=== PATIENT | female | born 1970 | race Two or more races ===

== ENCOUNTER 2020-05-11 10:50 | Outpatient (REF) | payer BC, SELFPAY | END 2020-05-11 10:51 | disposition home or self-care (01) | LOC: HO.LNP 10:50 | PROVIDERS: Visit Provider Internal Medicine | DX: Z20.828 Contact with and (suspected) exposure to other viral communicable diseases (principal) | CPT/HCPCS: 87635 ==

== ENCOUNTER 2020-08-19 08:34 | Outpatient (REF) | payer BC, SELFPAY ==
--- NOTE | 2020-08-19 08:40 | MM_ITS ---
EXAMINATION: MM SCREENING DIGITAL BREAST TOMOSYNTHESIS, BILATERAL CLINICAL INFORMATION: Screening. Asymptomatic. The lifetime risk of breast cancer based on the Tyrer-Cuzick Model is 10%. COMPARISON: Mammography: 06/03/2019, 10/26/2016, 09/02/2014, 07/25/2013 TECHNIQUE: Digital breast tomosynthesis is performed in both the craniocaudal and mediolateral oblique views along with computer-aided detection (CAD). Synthesized 2D images are generated from the tomosynthesis. FINDINGS: The breasts are heterogeneously dense, which may obscure small masses (ACR BI-RADS breast composition Category c). Breast tissue composition borders on average fibroglandular. Breast tissue composition is less dense than 2014. There is no significant mass or developing density or abnormal calcifications. Left breast has a chronic macrolobulated nodule better appreciated on tomography measuring approximately 1.3 x 0.9 cm. Finding is similar to prior mammography exams and decreased in size since MLO view since 2013. Right breast has chronic parenchymal asymmetry right breast upper outer quadrant with no architectural abnormality or developing density on tomography. MM/MM tomosynthesis screening BI IMPRESSION: No significant changes from prior exams. ASSESSMENT: BI-RADS 2: Benign RECOMMENDATION: Routine annual mammography screening. This patient's information was entered into a reminder system with a target due date for their next mammogram.
== END 2020-08-19 08:35 | disposition home or self-care (01) ==
LOC: HO.MAMMO 08:34
PROVIDERS: PCP Internal Medicine; Visit Provider Internal Medicine
DX: Z12.31 Encounter for screening mammogram for malignant neoplasm of breast (principal)
CPT/HCPCS: 77063; 77067

== ENCOUNTER 2020-08-26 09:33 | Outpatient (REF) | payer BC, SELFPAY ==
[2020-08-27 09:12] LABS: Follicle Stimulating Hormone 59.5 mIU/mL
[2020-08-29 02:08] LABS: HPV mRNA E6/E7 rflx Not Detected (Not Detected)
== END 2020-08-26 09:34 | disposition home or self-care (01) ==
LOC: HO.LAB 09:33
PROVIDERS: PCP Internal Medicine; Visit Provider Advanced Practice Midwife
DX: Z01.419 Encounter for gynecological examination (general) (routine) without abnormal findings (principal); Z11.51 Encounter for screening for human papillomavirus (HPV)
CPT/HCPCS: 36415; 83001; 87624; 88142

== ENCOUNTER 2020-09-21 16:24 | Outpatient (REF) | payer BC, SELFPAY ==
--- NOTE | ~2020-09-21 | XR_ITS ---
EXAMINATION: XR CERVICAL SPINE XR CHEST CLINICAL INFORMATION: Neck pain. COMPARISON: None TECHNIQUE: Cervical spine 5 views. Chest 2 views. FINDINGS: CERVICAL SPINE: There is mild straightening of cervical lordosis. The vertebral heights and alignment is normal. There is loss of C6-C7 disc level with moderate ventral spondylosis. Bilateral mild narrowing of neural foramina C5-C6 disc level from uncovertebral hypertrophic changes as noted. No lytic or sclerotic process seen. The prevertebral soft tissues are normal. CHEST: The lungs are well-expanded and clear of acute process. The heart size and pulmonary vascularity is normal. No gross bony abnormality seen. XR/XR cervical spine 5V IMPRESSION: 1. Mild straightening of cervical lordosis with degenerative disc changes and ventral spondylosis at C6-C7 disc level. 2. Unremarkable chest exam.
--- NOTE | ~2020-09-21 | XR_ITS ---
EXAMINATION: XR CERVICAL SPINE XR CHEST CLINICAL INFORMATION: Neck pain. COMPARISON: None TECHNIQUE: Cervical spine 5 views. Chest 2 views. FINDINGS: CERVICAL SPINE: There is mild straightening of cervical lordosis. The vertebral heights and alignment is normal. There is loss of C6-C7 disc level with moderate ventral spondylosis. Bilateral mild narrowing of neural foramina C5-C6 disc level from uncovertebral hypertrophic changes as noted. No lytic or sclerotic process seen. The prevertebral soft tissues are normal. CHEST: The lungs are well-expanded and clear of acute process. The heart size and pulmonary vascularity is normal. No gross bony abnormality seen. XR/XR chest 2V IMPRESSION: 1. Mild straightening of cervical lordosis with degenerative disc changes and ventral spondylosis at C6-C7 disc level. 2. Unremarkable chest exam.
[2020-09-21 17:05] LABS: MANUAL DIFF FLAG NO
[2020-09-21 17:15] LABS: Basophils Percent Auto 0.3 % (0-2); Eosinophils Absolute Auto 0.2 X10*3/uL (0.0-0.4); Eosinophils Percent Auto 2.8 % (0-4); Hematocrit 38.4 % (37-47); Hemoglobin 12.6 g/dl (12.0-16.0); Imm Gran Abs Auto 0.02 X10*3/uL (0.00-0.03); Imm Gran Pct Auto 0.3 % (0.0-0.4); Lymphocytes Absolute Auto 2.6 X10*3/uL (1.2-4.9); Lymphocytes Percent Auto 33.4 % (20-40); Mean Corpuscular HGB Conc 32.8 g/dl (31.0-35.0); Mean Corpuscular Hemoglobin 29.2 pg (27.0-33.0); Mean Corpuscular Volume 88.9 fL (80-98); Mean Platelet Volume 10.4 fL (9.4-12.3); Monocytes Absolute Auto 0.6 X10*3/uL (0.1-1.2); Monocytes Percent Auto 8.4 % (2-11); Neutrophils Absolute Auto 4.2 X10*3/uL (2.0-8.3); Neutrophils Percent Auto 54.8 % (45-73); Platelet Count 292 X10*3/uL (160-400); Red Blood Count 4.32 X10*6/uL (4.20-5.50); Red Cell Distribution Width 12.7 % (11.0-16.0); White Blood Count 7.6 X10*3/uL (4.8-10.8)
[2020-09-21 17:59] LABS: Alanine Aminotransferase 62 U/L (0-31); Albumin Level 4.7 g/dL (3.5-5.0); Alkaline Phosphatase 79 U/L (39-117); Anion Gap 13 (12-20); Aspartate Amino Transferase 35 U/L (5-31); Bilirubin Total 0.4 mg/dL (0.0-1.0); Blood Urea Nitrogen 20 mg/dL (9-16); C Reactive Protein 0.11 mg/dL (< or = 0.50); Calcium 9.9 mg/dL (8.4-10.2); Carbon Dioxide 28 mmol/L (22-29); Chloride 101 mmol/L (96-108); Cholesterol 218 mg/dL; Estimated Glomerular Filt Rate > 60; Glucose Random 115 mg/dL (60-115); Potassium 4.1 mmol/L (3.3-5.1); Sodium 138 mmol/L (135-145); Total Protein 7.4 g/dL (6.5-8.0)
[2020-09-22 13:02] LABS: Follicle Stimulating Hormone 54.1 mIU/mL
== END 2020-09-21 16:25 | disposition home or self-care (01) ==
LOC: HO.LAB 16:24
PROVIDERS: Absent Provider Advanced Practice Midwife; PCP Internal Medicine; Visit Provider Internal Medicine
DX: N91.2 Amenorrhea, unspecified (principal); M54.2 Cervicalgia; M54.6 Pain in thoracic spine; R79.89 Other specified abnormal findings of blood chemistry
CPT/HCPCS: 36415; 71046; 72050; 80053; 82465; 83001; 85025; 86140

== ENCOUNTER 2020-12-18 09:51 | Outpatient (REF) | payer BC, SELFPAY ==
[2020-12-18 11:22] LABS: Alanine Aminotransferase 41 U/L (0-31); Albumin Level 4.8 g/dL (3.5-5.0); Alkaline Phosphatase 84 U/L (39-117); Anion Gap 13 (12-20); Aspartate Amino Transferase 30 U/L (5-31); Bilirubin Total 0.6 mg/dL (0.0-1.0); Blood Urea Nitrogen 11 mg/dL (9-16); Carbon Dioxide 27 mmol/L (22-29); Chloride 103 mmol/L (96-108); Cholesterol 220 mg/dL; Estimated Glomerular Filt Rate > 60; Glucose Fasting 114 mg/dL (60-99); HDL Cholesterol 68 mg/dL; LDL Cholesterol Calculated 132 mg/dl; Potassium 4.3 mmol/L (3.3-5.1); Sodium 139 mmol/L (135-145); Total Protein 7.5 g/dL (6.5-8.0); Triglycerides 101 mg/dL
== END 2020-12-18 09:52 | disposition home or self-care (01) ==
LOC: HO.LAB 09:51
PROVIDERS: PCP Internal Medicine; Visit Provider Internal Medicine
DX: E78.00 Pure hypercholesterolemia, unspecified (principal); R79.89 Other specified abnormal findings of blood chemistry
CPT/HCPCS: 36415; 80053; 80061

== ENCOUNTER 2021-03-18 08:00 | Outpatient (RCR) | payer BC, SELFPAY ==
--- NOTE | 2021-02-16 08:34 | MHC.PT.EP ---
[facility] [place] Office [place] Office [place] Office [address] Nancy Bagley [address] [phone] F: [phone] F: [phone] F: [phone] F: [phone] Physical Therapy Plan of Care Date of Evaluation: Date of Surgery: Diagnosis: right SI pain Assessment: The patient arrives reporting right SIJ pain. She has reduced trunk mobility and painful movements of the right hip and leg. She has the most limitations with transitional movement and bed mobility. Assessment of her pelvis shows a slight right on right sacral torsion. After a Ann mechanical assessment she showed a flexion directional preference. I instructed her on body mechanics, sitting posture, and sleeping posture, but she will need more practice with this. She is an excellent candidate for skilled PT services. Frequency and Duration: The patient will be seen 2x/week x 4 weeks Short Term Goals: 1. Pt to show improved sitting and sleeping posture to avoid aggravating factors. 2. Pt to have improved neutral spine awareness to avoid further aggravation of pain. 3. Pt to be able to return demonstrate her HEP to improve compliance and carryover. Penitentiary Goals: 1. Pt to return to all functional tasks without provocation of pain. 2. Pt to be able to demonstrate excellent squat, lifting, bending mechanics. Treatment Plan: Modalities to reduce pain, spasms and effusion. Manual therapy to restore motion and function. Therapeutic exercise to improve strength and flexibility. Neuromuscular re-education for posture and balance. Therapeutic activities to return to functional activities of daily living. Electronically signed by: Joanna Morel PT DPT Please sign and return to therapist. Thank you for your referral.
== END 2021-03-18 09:15 | disposition home or self-care (01) ==
LOC: HO.PT 08:00
PROVIDERS: PCP Internal Medicine; Visit Provider Internal Medicine
DX: M53.3 Sacrococcygeal disorders, not elsewhere classified (principal)
CPT/HCPCS: 97110; 97112; 97140; 97162; 97530

== ENCOUNTER 2021-07-14 13:30 | Outpatient (REF) | payer BC, SELFPAY ==
[2021-07-14 14:25] LABS: Influenza A PCR NEGATIVE (Negative); Influenza B PCR NEGATIVE (Negative); Resp Syncy Virus RNA Qual PCR NEGATIVE (Negative); SARS COV2 PCR INHOUSE NEGATIVE (Negative)
== END 2021-07-14 13:31 | disposition home or self-care (01) ==
LOC: HO.LNP 13:30
PROVIDERS: Visit Provider Internal Medicine
DX: Z20.822 Contact with and (suspected) exposure to COVID-19 (principal)
CPT/HCPCS: 0241U

== ENCOUNTER 2021-07-18 07:16 | Outpatient (REF) | payer BC, SELFPAY ==
[2021-07-18 07:32] LABS: MANUAL DIFF FLAG NO
[2021-07-18 07:47] LABS: Basophils Percent Auto 0.4 % (0-2); Eosinophils Absolute Auto 0.3 X10*3/uL (0.0-0.4); Eosinophils Percent Auto 3.2 % (0-4); Hematocrit 40.7 % (37.0-47.0); Hemoglobin 13.2 g/dl (12.0-16.0); Imm Gran Abs Auto 0.03 X10*3/uL (0.00-0.03); Imm Gran Pct Auto 0.4 % (0.0-0.4); Lymphocytes Percent Auto 24.1 % (20-40); Mean Corpuscular HGB Conc 32.4 g/dl (31.0-35.0); Mean Corpuscular Hemoglobin 29.5 pg (27.0-33.0); Mean Corpuscular Volume 90.8 fL (80.0-98.0); Mean Platelet Volume 9.9 fL (9.4-12.3); Monocytes Absolute Auto 0.6 X10*3/uL (0.1-1.2); Monocytes Percent Auto 7.8 % (2-11); Neutrophils Absolute Auto 5.3 x10*3/uL (2.0-8.3); Neutrophils Percent Auto 64.1 % (45-73); Platelet Count 306 X10*3/uL (160-400); Red Blood Count 4.48 X10*6/uL (4.20-5.50); Red Cell Distribution Width 12.8 % (11.0-16.0); White Blood Count 8.2 X10*3/uL (4.8-10.8)
[2021-07-18 08:15] LABS: Alanine Aminotransferase 89 U/L (0-31); Albumin Level 4.5 g/dL (3.5-5.0); Alkaline Phosphatase 87 U/L (39-117); Anion Gap 9 (12-20); Aspartate Amino Transferase 58 U/L (5-31); Bilirubin Total 0.2 mg/dL (0.0-1.0); Blood Urea Nitrogen 13 mg/dL (9-16); Calcium 9.8 mg/dL (8.4-10.2); Carbon Dioxide 27 mmol/L (22-29); Chloride 107 mmol/L (96-108); Cholesterol 205 mg/dL; Estimated Glomerular Filt Rate > 60; Glucose Random 121 mg/dL (60-115); HDL Cholesterol 65 mg/dL; LDL Cholesterol Calculated 105 mg/dl; Potassium 4.2 mmol/L (3.3-5.1); Sodium 139 mmol/L (135-145); Total Protein 7.6 g/dL (6.5-8.0); Triglycerides 177 mg/dL
[2021-07-18 08:19] LABS: Appearance Urine CLEAR; Color Urine YELLOW; Glucose Urine UA NEG (NEG); Leukocyte Esterase Urine NEG (NEG); Nitrite Urine NEG (NEG); Specific Gravity - Urine 1.025 (1.005-1.025); Urine Blood TRACE (NEG); Urine Ketones NEG (NEG); Urine Protein NEG (NEG-TRACE)
[2021-07-18 08:27] LABS: Squamous Epithelial Cell Urine TRACE /LPF
[2021-07-18 08:29] LABS: RBC Urine 0-2 /HPF (0); WBC Urine 0-2 /HPF (0-4)
[2021-07-18 08:33] LABS: Vitamin D 25-OH Total 41.3 ng/mL (>30)
== END 2021-07-18 07:17 | disposition home or self-care (01) ==
LOC: HO.LAB 07:16
PROVIDERS: PCP Internal Medicine; Visit Provider Internal Medicine
DX: Z00.00 Encounter for general adult medical examination without abnormal findings (principal)
CPT/HCPCS: 36415; 80053; 80061; 81001; 82306; 85025

== ENCOUNTER 2021-07-25 11:16 | Outpatient (REF) | payer BC, SELFPAY ==
--- NOTE | ~2021-07-25 | XR_ITS ---
EXAMINATION: XR CHEST CLINICAL INFORMATION: Cough. Question infiltrate. COMPARISON: Previous chest x-ray September 2020 TECHNIQUE: 2 views of the chest were obtained. FINDINGS: No significant abnormality is noted involving the heart, lungs, mediastinum, bony thorax or soft tissues. XR/XR chest 2V IMPRESSION: Unremarkable examination.
== END 2021-07-25 11:17 | disposition home or self-care (01) ==
LOC: HO.XRAY 11:16
PROVIDERS: PCP Internal Medicine; Visit Provider Internal Medicine
DX: R05.9 Cough, unspecified (principal)
CPT/HCPCS: 71046

== ENCOUNTER → 2021-08-29 10:17 | Outpatient (BNVA) | payer BC, SELFPAY | PROVIDERS: PCP Internal Medicine; Visit Provider Advanced Practice Midwife ==

== ENCOUNTER 2021-10-05 07:56 | Outpatient (REF) | payer BC, SELFPAY ==
--- NOTE | ~2021-10-05 | MM_ITS ---
EXAMINATION: MM SCREENING DIGITAL BREAST TOMOSYNTHESIS, BILATERAL CLINICAL INFORMATION: Screening. Asymptomatic. The lifetime risk of breast cancer based on the Tyrer-Cuzick Model is 9%. COMPARISON: Mammography: 08/19/2020, 06/03/2019, 10/26/2016, 09/02/2014, 07/25/2013 TECHNIQUE: Digital breast tomosynthesis is performed in both the craniocaudal and mediolateral oblique views along with computer-aided detection (CAD). Synthesized 2D images are generated from the tomosynthesis. FINDINGS: The breasts are heterogeneously dense, which may obscure small masses (ACR BI-RADS breast composition Category c). There is some inhomogeneous involution of the breast tissue density over time. Some patchy asymmetry posterior upper outer right breast is present, likely incompletely compressed inhomogeneous fibroglandular tissue. Patient will be recalled for additional imaging. The remainder of the bilateral breasts show no significant changes from prior studies. Minor oval parenchymal asymmetry central left breast is stable from prior studies. No abnormal calcifications. The axilla and skin contours are unremarkable. MM/MM tomosynthesis screening BI IMPRESSION: 1. Right: Parenchymal asymmetry posterior upper outer quadrant, likely incompletely compressed glandular tissue. 2. Left: No mammographic evidence of malignancy. ASSESSMENT: BI-RADS 0: Incomplete - Need Additional Imaging Evaluation RECOMMENDATION: 1. Additional views of the right breast (rolled CC x2, standard ML). 2. Targeted ultrasound if warranted after review of the additional views. 3. Radiology department staff will contact the patient for additional imaging. This patient's information was entered into a reminder system with a target due date for their next mammogram.
== END 2021-10-05 07:57 | disposition home or self-care (01) ==
LOC: HO.MAMMO 07:56
PROVIDERS: PCP Internal Medicine; Visit Provider Advanced Practice Midwife
DX: Z12.31 Encounter for screening mammogram for malignant neoplasm of breast (principal)
CPT/HCPCS: 77063; 77067

== ENCOUNTER 2021-10-11 08:49 | Outpatient (REF) | payer BC, SELFPAY ==
--- NOTE | ~2021-10-11 | MM_ITS ---
EXAMINATION: MM DIAGNOSTIC DIGITAL BREAST TOMOSYNTHESIS, RIGHT TARGETED RIGHT BREAST ULTRASOUND CLINICAL INFORMATION: Asymmetric density upper outer aspect of the right breast. COMPARISON: Mammography: 10/05/2021 and studies dating back to 07/25/2013. TECHNIQUE: Digital breast tomosynthesis is performed. 2D images are generated from the tomosynthesis. The following views are obtained: Medial lateral rolled craniocaudal views of the right breast. Full field mediolateral oblique projection. Targeted right breast ultrasound. FINDINGS: The breasts are heterogeneously dense, which may obscure small masses (ACR BI-RADS breast composition Category c). There is persistence of an asymmetric density about the upper outer aspect of the right breast approximately 11 cm from the nipple. Looking back on prior studies, this appears to have been present to some degree back to 2019. Recommend 6 month follow-up right breast mammogram to ensure stability. Targeted ultrasound evaluation to the upper outer aspect of the right breast did not demonstrate any abnormal cystic or solid masses. No region of abnormal distal sound shadowing appreciated. Results are discussed with the patient at time of visit. MM/MM tomosynthesis added views R IMPRESSION: Probably stable density deep upper outer aspect of the right breast for which 6 month follow-up study is recommended. ASSESSMENT: BI-RADS 3: Probably Benign. RECOMMENDATION: Diagnostic mammography in 6 months. This patient's information was entered into a reminder system with a target due date for their next mammogram.
--- NOTE | ~2021-10-11 | US_ITS ---
EXAMINATION: US DIAGNOSTIC ULTRASOUND BREAST, RIGHT CLINICAL INFORMATION: Asymmetric density deep upper outer aspect of the right breast.. COMPARISON: Mammography of same day as well as studies dating back to July 25, 2013. TECHNIQUE: Ultrasound of the breast is performed with real-time duran scale imaging and color Doppler. FINDINGS: There is no focal suspicious finding. There is no solid mass, architectural abnormality, duct ectasia, or edema in the soft tissue planes. Results are discussed with the patient at time of visit. US/US breast RT limited IMPRESSION: No ultrasound abnormality of the right breast identified. Mammography demonstrates what is likely stable density upper outer aspect of the right breast for which a 6 month follow-up right breast mammogram is suggested. ASSESSMENT: BI-RADS 3: Probably Benign RECOMMENDATION: Diagnostic mammography in 6 months. Right breast mammography. This patient's information was entered into a reminder system with a target due date for their next mammogram.
== END 2021-10-11 08:50 | disposition home or self-care (01) ==
LOC: HO.MAMMO 08:49
PROVIDERS: Visit Provider Advanced Practice Midwife
DX: N64.89 Other specified disorders of breast (principal)
CPT/HCPCS: 76642; 77061; 77065

== ENCOUNTER 2021-10-28 16:22 | Outpatient (REF) | payer BC, SELFPAY ==
--- NOTE | ~2021-10-28 | XR_ITS ---
EXAMINATION: XR LUMBOSACRAL SPINE CLINICAL INFORMATION: Back pain COMPARISON: Previous lumbar spine MRI 2012 and x-ray July 2019 TECHNIQUE: Three views of the lumbosacral spine. FINDINGS: Bone alignment is normal. No fracture or dislocation is seen. Disc spaces are normal. There is lower lumbar spine facet arthritis. There is a probable L1 vertebral body hemangioma that appears unchanged. XR/XR lumbar spine 2-3V IMPRESSION: Lower lumbar spine facet arthritis.
[2021-10-28 17:20] LABS: Estimated Average Glucose 123 mg/dL; Hemoglobin A1c % 5.9 %
[2021-10-28 17:23] LABS: Alanine Aminotransferase 70 U/L (0-31); Albumin Level 4.4 g/dL (3.5-5.0); Alkaline Phosphatase 80 U/L (39-117); Anion Gap 11 (12-20); Aspartate Amino Transferase 39 U/L (5-31); Bilirubin Total 0.4 mg/dL (0.0-1.0); Blood Urea Nitrogen 13 mg/dL (9-16); C Reactive Protein 0.27 mg/dL (< or = 0.50); Calcium 9.7 mg/dL (8.4-10.2); Carbon Dioxide 27 mmol/L (22-29); Chloride 106 mmol/L (96-108); Estimated Glomerular Filt Rate > 60; Glucose Random 98 mg/dL (60-115); Potassium 4.3 mmol/L (3.3-5.1); Sodium 140 mmol/L (135-145)
[2021-10-28 17:45] LABS: Thyroid Stimulating Hormone 0.87 uIU/mL (0.32-4.0)
[2021-10-28 17:48] LABS: Vitamin B12 1153 pg/mL (200-900)
== END 2021-10-28 16:23 | disposition home or self-care (01) ==
LOC: HO.XRAY 16:22
PROVIDERS: PCP Internal Medicine; Visit Provider Internal Medicine
DX: R79.89 Other specified abnormal findings of blood chemistry (principal); M54.50 Low back pain, unspecified; R20.0 Anesthesia of skin
CPT/HCPCS: 36415; 72100; 80053; 82550; 82607; 83036; 84439; 84443; 86140

== ENCOUNTER 2021-12-09 13:23 | Outpatient (RCR) | payer BC, SELFPAY | END 2021-12-30 09:08 | disposition home or self-care (01) | LOC: HO.PT 13:23 | PROVIDERS: PCP Internal Medicine; Visit Provider Internal Medicine | DX: M46.96 Unspecified inflammatory spondylopathy, lumbar region (principal) | CPT/HCPCS: 97110; 97161 ==

== ENCOUNTER 2022-02-01 15:41 | Outpatient (REF) | payer BC, SELFPAY ==
[2022-02-01 16:38] LABS: Alanine Aminotransferase 66 U/L (0-31); Albumin Level 4.8 g/dL (3.5-5.0); Alkaline Phosphatase 81 U/L (39-117); Anion Gap 14 (12-20); Aspartate Amino Transferase 40 U/L (5-31); Bilirubin Total 0.3 mg/dL (0.0-1.0); Blood Urea Nitrogen 13 mg/dL (9-16); C Reactive Protein 0.21 mg/dL (< or = 0.50); Calcium 10.3 mg/dL (8.4-10.2); Carbon Dioxide 26 mmol/L (22-29); Chloride 104 mmol/L (96-108); Estimated Glomerular Filt Rate > 60; Glucose Random 88 mg/dL (60-115); Potassium 4.3 mmol/L (3.3-5.1); Sodium 140 mmol/L (135-145); Total Protein 7.6 g/dL (6.5-8.0)
== END 2022-02-01 15:42 | disposition home or self-care (01) ==
LOC: HO.LAB 15:41
PROVIDERS: PCP Internal Medicine; Visit Provider Internal Medicine
DX: M54.9 Dorsalgia, unspecified (principal); R20.2 Paresthesia of skin; R94.5 Abnormal results of liver function studies
CPT/HCPCS: 36415; 80053; 82550; 86140

== ENCOUNTER 2022-02-05 08:49 | Emergency (ER) | payer BC, SELFPAY ==
[2022-02-05 09:12] VITALS: BP 137/89; PULSE 76; RESP 18; TEMP 36.6; O2SAT 100; BMI 25.8
--- NOTE | 2022-02-05 11:26 | ED_ITS ---
HPI - Back Pain/Injury General Chief Complaint: Back Pain/Injury Stated Complaint: Lower back pain Time Seen by Provider: 02/05/22 11:01 Source: patient Mode of arrival: ambulatory History of Present Illness HPI Narrative: 51-year-old female with past medical history of asthma, spinal stenosis s/p back surgery, presenting to the ED complaining of acute on chronic left-sided low back pain radiating down left lower extremity. Admits has been seeing PCP/going to physical therapy for symptoms trying to get outpatient MRI, having difficulty due to insurance issues. Reports pain worsened this morning with painful/difficulty ambulating from pain. Also reports paresthesias. Denies fever, chills, numbness, weakness, urinary incontinence/retention, fever. Did not take any medications today. Denies known injury/trauma or fall. Takes Motrin and Flexeril at home without relief MD elicited complaint: back pain Pertinent past history: prior back pain and back surgery Onset (ago): day(s) Related Data Home Medications Medication Instructions Recorded Confirmed albuterol sulfate 90 mcg/actuation 2 puff inhalation Q4H PRN 08/26/20 aerosol inhaler fluoxetine 20 mg capsule 20 mg PO DAILY 08/26/20 Previous Rx's Medication Instructions Recorded lidocaine 5 % topical patch 1 patch topical DAILY PRN pain #30 02/05/22 (Lidoderm) ea tramadol 50 mg tablet 50 mg PO Q8H PRN pain, severe #9 02/05/22 tabs Allergies Allergy/AdvReac Type Severity Reaction Status Date / Time SEDATIVE MED Allergy Intermediate BURNING Uncoded 04/08/20 15:54 SENSATION Review of Systems Review of Systems: Constitutional: No Fever, No Chills ENT/Mouth: No Ear Pain, No Nasal Congestion, No Sinus Pain, No Hoarseness, No sore throat, No Rhinorrhea, No Swallowing Difficulty Cardiovascular: No Chest Pain, No SOB Respiratory: No Cough, No Sputum, No Wheezing Gastrointestinal: No Nausea, No Vomiting, No Diarrhea, No Constipation, No Abdominal pain Genitourinary: No Dysuria, No Urinary Frequency, No Hematuria, No Urinary Incontinence/retention, No Urgency, No Flank Pain Musculoskeletal: + joint pain, No Myalgias, No Joint Swelling Skin: No Skin Lesions, No rash Neuro: No Weakness, No Numbness, + Paresthesias Yes all other systems are reviewed and are negative Constitutional: Constitutional: Reports as per HPI PMFSH Past Medical History Attestation statement: The following information was validated with the patient. Medical History Asthma Surgical History H/O elbow surgery H/O Spinal surgery Family History Family History (Updated 08/29/21 @ 10:54 by Abigail Langford) Father Dementia Social History Social History Alcohol intake: current Alcohol intake frequency: holidays/special occasions only Patient Tobacco Use Status: Former Tobacco user Advance Directives: No Advance Directives Information Provided: No Sexual orientation: Straight/Heterosexual Gender identity: Female Physical Exam Vital Signs: Vital Signs: Last Vital Signs Temp 98 F 02/05/22 09:12 Pulse 76 02/05/22 09:12 Resp 18 02/05/22 09:12 BP 137/89 02/05/22 09:12 Pulse Ox 100 02/05/22 09:12 O2 Del Method 02/05/22 09:12 BMI result Body Mass Index 25.8 Const: General: cooperative, healthy appearing and no acute distress Orientation/consciousness: patient oriented x3 Limitations: no limitations HEENT: Head: Yes normal to inspection and Yes atraumatic Ears: hearing grossly normal bilaterally General nose exam: Normal external nose present Face and sinus: Yes normal facial exam Eyes: General: appearance normal, both eyes and all related structures EOM: EOMs intact bilaterally Neck: Neck: Yes normal visual inspection and Yes no meningeal signs Resp: Effort & Inspection: normal respiratory effort and no respiratory distress Cardio: Rate: regular rate Heart sounds: S1 normal heart sound present and S2 normal heart sound present Peripheral pulses: dorsalis pedis present GI: Inspection: Yes normal to inspection Palpation (GI): Soft to palpation and nontender Back/Spine/Pelvis: Other: No midline thoracic/lumbar spinous tenderness/step-off or deformity. + left- sided lumbar paraspinal/buttock tenderness to palpation Skin: Rashes: no rashes Wounds: no wounds Neuro: Other: Strength intact throughout. No saddle anesthesia. Sensation intact to light touch. Neurovascular intact distally. Ambulating with steady gait General: patient oriented x3, gait normal, tone normal and no meningeal signs Gait exam (Neuro): Normal gait present Extrem: General: Yes normal to inspection MDM - Back Pain/Injury MDM Narrative Medical decision making narrative: 51-year-old female with past medical history of asthma, spinal stenosis s/p back surgery, presenting to the ED complaining of acute on chronic left-sided low back pain radiating down left lower extremity. On exam vital signs stable, NAD, nontoxic appearing, physical exam as above, no midline spinous tenderness throughout, no red flag symptoms. Concern for MSK pain/strain/muscle spasm vs herniated disc. Low concern for fracture/dislocation or cauda equina Plan: Pain management, PCP follow-up Differential Diagnosis Differential diagnosis: Likely lumbar radiculopathy, sciatica and strain of lumbar region Medical Records Attestation: I reviewed the patient's medical records. Lab Data Attestation: I reviewed the patient's lab results. Discharge Plan Discharge Clinical Impression: Lumbar radiculopathy Patient Disposition: Home, Self-Care Instructions: Acute Low Back Pain (ED) Additional Instructions: Continue take for previously prescribed Flexeril and ibuprofen. Consider cutting the Flexeril in half to make it less sedating. You can also take 800 mg of ibuprofen every 8 hours. In addition lidocaine patches are numbing patches, apply to most painful area. And tramadol as an opiate pain medication, take only when pain is severe for the next 3 days You may also take Tylenol If symptoms persist or worsen, pain becomes unbearable, you developed urinary retention or incontinence, or weakness return to the ED Please follow-up with your doctor Prescriptions: New tramadol 50 mg tablet 50 mg PO Q8H PRN (Reason: pain, severe) Qty: 9 0RF lidocaine [Lidoderm] 5 % adhesive patch,medicated 1 patch topical DAILY MDD remove after 12 hours PRN (Reason: pain) Qty: 30 0RF Rx Instructions: leave on most painful area for up to 12 hrs No Action fluoxetine 20 mg capsule 20 mg PO DAILY albuterol sulfate 90 mcg/actuation HFA aerosol inhaler 2 puff inhalation Q4H PRN Referrals: Rui Lemos MD [Primary Care Provider] -
[2022-02-05] MEDS: Ketorolac Tromethamine 30 MG/ML VIAL IM (11:58)
[2022-02-05] MEDS: traMADoL HCL 50 MG TABLET PO (11:59)
[2022-02-05] MEDS: Lidocaine 4 % Patch ADH..PATCH 1 PATCH TRANSDERMA (11:59)
== END 2022-02-05 12:10 | disposition home or self-care (01) ==
PROVIDERS: Emergency Provider Emergency Medicine; PCP Internal Medicine
DX: M54.16 Radiculopathy, lumbar region (principal); Z79.899 Other long term (current) drug therapy; Z87.891 Personal history of nicotine dependence
CPT/HCPCS: 96372; 99283; 99284; J1885

== ENCOUNTER 2022-04-12 08:40 | Outpatient (REF) | payer BC, SELFPAY ==
--- NOTE | ~2022-04-12 | MM_ITS ---
EXAMINATION: MM DIAGNOSTIC DIGITAL BREAST TOMOSYNTHESIS, RIGHT CLINICAL INFORMATION: Short interval follow-up right breast. Parenchymal asymmetry posterior upper outer right breast noted previously. TC score 9%. COMPARISON: Mammography: 10/11/2021, 10/05/2021 (BI-RADS 0), 08/19/2020, 06/03/2019, 10/26/2016 TECHNIQUE: Digital breast tomosynthesis is performed in both the craniocaudal and mediolateral oblique views along with computer-aided detection (CAD). Synthesized 2D images are generated from the tomosynthesis. FINDINGS: There are scattered areas of fibroglandular density (ACR BI-RADS breast composition Category b). Breast tissue composition borders on heterogeneously dense. Parenchymal pattern is similar to prior studies and there is no developing density or interval mass or architectural abnormality. No abnormal calcifications. The axilla and skin contours are unremarkable. Results are provided to the patient at time of visit by the technologist. MM/MM tomosynthesis diagnostic RT IMPRESSION: No significant changes from prior studies. ASSESSMENT: BI-RADS 2: Benign RECOMMENDATION: Routine annual mammography screening. This patient's information was entered into a reminder system with a target due date for their next mammogram.
== END 2022-04-12 08:41 | disposition home or self-care (01) ==
LOC: HO.MAMMO 08:40
PROVIDERS: PCP Internal Medicine; Visit Provider Advanced Practice Midwife
DX: N63.11 Unspecified lump in the right breast, upper outer quadrant (principal)
CPT/HCPCS: 77061; 77065

== ENCOUNTER 2022-05-04 14:30 | Outpatient (REF) | payer BC, SELFPAY ==
[2022-05-04 14:40] LABS: MANUAL DIFF FLAG NO
[2022-05-04 15:40] LABS: Basophils Percent Auto 0.3 % (0-2); Eosinophils Absolute Auto 0.3 X10*3/uL (0.0-0.4); Eosinophils Percent Auto 3.8 % (0-4); Hematocrit 38.1 % (37.0-47.0); Hemoglobin 12.6 g/dl (12.0-16.0); Imm Gran Abs Auto 0.01 X10*3/uL (0.00-0.03); Imm Gran Pct Auto 0.2 % (0.0-0.4); Lymphocytes Absolute Auto 1.9 X10*3/uL (1.2-4.9); Lymphocytes Percent Auto 28.4 % (20-40); Mean Corpuscular HGB Conc 33.1 g/dl (31.0-35.0); Mean Corpuscular Hemoglobin 29.7 pg (27.0-33.0); Mean Corpuscular Volume 89.9 fL (80.0-98.0); Mean Platelet Volume 10.7 fL (9.4-12.3); Monocytes Absolute Auto 0.5 X10*3/uL (0.1-1.2); Monocytes Percent Auto 8.2 % (2-11); Neutrophils Absolute Auto 3.9 x10*3/uL (2.0-8.3); Neutrophils Percent Auto 59.1 % (45-73); Platelet Count 289 X10*3/uL (160-400); Red Blood Count 4.24 X10*6/uL (4.20-5.50); Red Cell Distribution Width 12.9 % (11.0-16.0); White Blood Count 6.6 X10*3/uL (4.8-10.8)
[2022-05-04 16:08] LABS: Alanine Aminotransferase 62 U/L (0-31); Albumin Level 4.6 g/dL (3.5-5.0); Alkaline Phosphatase 80 U/L (39-117); Amylase 56 U/L (28-100); Anion Gap 16 (12-20); Aspartate Amino Transferase 38 U/L (5-31); Bilirubin Total 0.3 mg/dL (0.0-1.0); Blood Urea Nitrogen 14 mg/dL (9-16); C Reactive Protein 0.17 mg/dL (< or = 0.50); Calcium 9.8 mg/dL (8.4-10.2); Carbon Dioxide 25 mmol/L (22-29); Chloride 104 mmol/L (96-108); Estimated Glomerular Filt Rate > 60; Glucose Random 95 mg/dL (60-115); Lactate Dehydrogenase 173 U/L (122-220); Potassium 4.3 mmol/L (3.3-5.1); Sodium 141 mmol/L (135-145); Total Protein 7.2 g/dL (6.5-8.0)
== END 2022-05-04 14:31 | disposition home or self-care (01) ==
LOC: HO.LAB 14:30
PROVIDERS: PCP Internal Medicine; Visit Provider Internal Medicine
DX: R59.9 Enlarged lymph nodes, unspecified (principal)
CPT/HCPCS: 36415; 80053; 82150; 83615; 85025; 86140

== ENCOUNTER 2022-06-12 07:27 | Outpatient (REF) | payer BC, SELFPAY ==
--- NOTE | ~2022-06-12 | CT_ITS ---
EXAMINATION: CT MAXILLOFACIAL WITHOUT CONTRAST CLINICAL INFORMATION: Left jaw swelling COMPARISON: None TECHNIQUE: Multidetector helical imaging was performed in the axial plane with generation of coronal and sagittal reformatted images. This CT examination was performed using dose optimization techniques as appropriate, variously including the following: *Automated exposure control *Adjustment of mA and/or kV according to patient size (this includes techniques or standardized protocols for targeted exams where dose is matched to indication/reason for exam; i.e. extremities or head) *Use of iterative reconstruction technique DLP: 123 FINDINGS: PARANASAL SINUSES: Mild ethmoid and maxillary sinus mucosal thickening. NASAL PASSAGE: The nasal passages are clear. Rightward deviation and osseous spurring of the nasal septum. ORBITS: Normal appearance of the osseous orbits. The lamina papyracea are intact. No significant preseptal or retrobulbar edema. Normal appearance of the globes. Normal symmetric appearance of the extraocular musculature. No abnormalities of the intraconal or extraconal adipose tissue. Normal appearance of the optic nerve sheaths. Normal appearance of the lacrimal glands. No orbital fluid collections. No abnormalities of the orbital apices. TEMPOROMANDIBULAR JOINTS: The temporomandibular joints remain well aligned. Normal appearance of the temporomandibular joints. ADDITIONAL RELEVANT FINDINGS: No evidence of maxillofacial bone fractures. The zygomatic arches remain intact. No nasal bone fracture. No evidence of mandibular or maxillary fracture. No significant maxillary/mandibular periapical disease. Degenerative changes of the right temporomandibular joint. The visualized mastoid air cells and middle ear cavities remain well aerated. Limited evaluation of the intracranial structures without significant abnormalities. The premaxillary, retromaxillary, pterygopalatine fossa, temporal fossa, and parapharyngeal adipose tissue is maintained. No demonstrated soft tissue abnormalities within the intrinsic tissues of the tongue. Metallic skin marker is noted along the left submandibular region with adjacent enlarged left level 1B cervical lymph node which measures up to 2.5 cm in maximal axial dimensions (series 5 image 41). There are additional mildly enlarged right level 1B and bilateral level [address]/CT facial bones wo IV con IMPRESSION: Palpable abnormality in the left submandibular region corresponds to an enlarged left level 1B lymph node. There are additional mildly enlarged lymph nodes involving the right level 1B and bilateral level 2 alexandra stations. Recommend further evaluation with contrast-enhanced CT of the neck.
== END 2022-06-12 07:28 | disposition home or self-care (01) ==
LOC: HO.CT 07:27
PROVIDERS: Visit Provider Internal Medicine
DX: M27.2 Inflammatory conditions of jaws (principal)
CPT/HCPCS: 70486

== ENCOUNTER 2022-06-27 16:34 | Outpatient (REF) | payer BC, SELFPAY ==
[2022-06-27 16:48] LABS: MANUAL DIFF FLAG NO
[2022-06-27 17:24] LABS: Basophils Percent Auto 0.4 % (0-2); Eosinophils Absolute Auto 0.2 X10*3/uL (0.0-0.4); Eosinophils Percent Auto 2.1 % (0-4); Hematocrit 39.5 % (37.0-47.0); Hemoglobin 13.2 g/dl (12.0-16.0); Imm Gran Abs Auto 0.02 X10*3/uL (0.00-0.03); Imm Gran Pct Auto 0.3 % (0.0-0.4); Lymphocytes Absolute Auto 1.9 X10*3/uL (1.2-4.9); Lymphocytes Percent Auto 24.6 % (20-40); Mean Corpuscular HGB Conc 33.4 g/dl (31.0-35.0); Mean Corpuscular Hemoglobin 30.3 pg (27.0-33.0); Mean Corpuscular Volume 90.6 fL (80.0-98.0); Mean Platelet Volume 10.7 fL (9.4-12.3); Monocytes Absolute Auto 0.8 X10*3/uL (0.1-1.2); Monocytes Percent Auto 9.9 % (2-11); Neutrophils Absolute Auto 4.8 x10*3/uL (2.0-8.3); Neutrophils Percent Auto 62.7 % (45-73); Platelet Count 259 X10*3/uL (160-400); Red Blood Count 4.36 X10*6/uL (4.20-5.50); Red Cell Distribution Width 12.7 % (11.0-16.0); White Blood Count 7.7 X10*3/uL (4.8-10.8)
[2022-06-27 17:47] LABS: Gamma Glutamyl Transpeptidase 48 U/L (7-33); Lactate Dehydrogenase 210 U/L (122-220)
[2022-06-27 18:11] LABS: Erythrocyte Sedimentation Rate 16 MM/HR (0-20)
[2022-06-28 08:00] LABS: Monotest Negative (Negative)
[2022-06-28 14:33] LABS: Beta-2 Microglobulin, Serum 1.33 mg/L (< OR = 2.51)
== END 2022-06-27 16:35 | disposition home or self-care (01) ==
LOC: HO.LAB 16:34
PROVIDERS: PCP Internal Medicine; Visit Provider Internal Medicine Medical Oncology
DX: R22.1 Localized swelling, mass and lump, neck (principal)
CPT/HCPCS: 36415; 82232; 82977; 83615; 85025; 85652; 86308

== ENCOUNTER 2022-08-11 08:11 | Outpatient (REF) | payer BC, SELFPAY ==
--- NOTE | ~2022-08-11 | US_ITS ---
PROCEDURE: ULTRASOUND-GUIDED LEFT SUBMANDIBULAR LYMPH NODE BIOPSY CLINICAL INFORMATION: Adenopathy left neck. COMPARISON: CT facial bones 06/12/2022. TECHNIQUE: Following explaining ultrasound-guided left neck lymph node biopsy procedure, benefits and risk, a written consent was obtained. Patient was placed supine with head turned to the right on ultrasound stretcher and preliminary ultrasound imaging was obtained through the left submandibular space/neck. The lymph node was identified and a marker was placed along the skin. The marked site was cleaned and draped in the usual sterile manner. 1% lidocaine was inserted at puncture site. Three fine-needle biopsy aspirations are performed with 22-gauge biopsy needle. A 20-gauge short biopsy gun was advanced through the skin incision and a 3-pass core biopsy was obtained. Adequate tissue was collected and submitted in formalin, flow cytometry and immediate slight evaluation. After confirming lymph node tissue by the pathologist, the needle was withdrawn and complete hemostasis achieved at puncture site. Sterile dressing was applied postprocedure. Patient tolerated procedure extremely well. FINDINGS: Preliminary ultrasound identified two large lymph nodes in submandibular space. The largest lymph node has echogenic parenchyma in the center and measures 1.8 x 2.1 x 2.3 cm. It has intrinsic vasculature. The smaller lymph node was not measured. Ultrasound-guided fine-needle and core biopsy was performed of the larger left submandibular lymph node. Initial results from pathology revealed lymphoid tissue. US/US biopsy lymph node IMPRESSION: Successful ultrasound-guided left submandibular lymph node fine-needle and core biopsy performed. There were no immediate complications.
--- NOTE | ~2022-08-11 | US_ITS ---
PROCEDURE: ULTRASOUND-GUIDED LEFT SUBMANDIBULAR LYMPH NODE BIOPSY CLINICAL INFORMATION: Adenopathy left neck. COMPARISON: CT facial bones 06/12/2022. TECHNIQUE: Following explaining ultrasound-guided left neck lymph node biopsy procedure, benefits and risk, a written consent was obtained. Patient was placed supine with head turned to the right on ultrasound stretcher and preliminary ultrasound imaging was obtained through the left submandibular space/neck. The lymph node was identified and a marker was placed along the skin. The marked site was cleaned and draped in the usual sterile manner. 1% lidocaine was inserted at puncture site. Three fine-needle biopsy aspirations are performed with 22-gauge biopsy needle. A 20-gauge short biopsy gun was advanced through the skin incision and a 3-pass core biopsy was obtained. Adequate tissue was collected and submitted in formalin, flow cytometry and immediate slight evaluation. After confirming lymph node tissue by the pathologist, the needle was withdrawn and complete hemostasis achieved at puncture site. Sterile dressing was applied postprocedure. Patient tolerated procedure extremely well. FINDINGS: Preliminary ultrasound identified two large lymph nodes in submandibular space. The largest lymph node has echogenic parenchyma in the center and measures 1.8 x 2.1 x 2.3 cm. It has intrinsic vasculature. The smaller lymph node was not measured. Ultrasound-guided fine-needle and core biopsy was performed of the larger left submandibular lymph node. Initial results from pathology revealed lymphoid tissue. US/US guided fine needle asp IMPRESSION: Successful ultrasound-guided left submandibular lymph node fine-needle and core biopsy performed. There were no immediate complications.
[2022-08-11] MEDS: Lidocaine HCl 1 % MPF 5 ML VIAL 10 ML SUBCUT (09:43)
== END 2022-08-11 08:12 | disposition home or self-care (01) ==
LOC: HO.US 08:11
PROVIDERS: Radiology Diagnostic Radiology; Visit Provider Internal Medicine Medical Oncology
DX: R59.9 Enlarged lymph nodes, unspecified (principal)
CPT/HCPCS: 10005; 36415; 38505; 76942; 88172; 88173; 88177; 88184; 88185; 88300; 88305; 88333

== ENCOUNTER 2022-09-25 14:29 | Outpatient (REF) | payer BC, SELFPAY ==
[2022-09-25 15:41] LABS: Influenza A PCR NEGATIVE (Negative); Influenza B PCR NEGATIVE (Negative); Resp Syncy Virus RNA Qual PCR NEGATIVE (Negative); SARS COV2 PCR INHOUSE NEGATIVE (Negative)
== END 2022-09-25 14:30 | disposition home or self-care (01) ==
LOC: HO.LNP 14:29
PROVIDERS: Visit Provider Internal Medicine
DX: Z20.822 Contact with and (suspected) exposure to COVID-19 (principal); R05.9 Cough, unspecified; R51.9 Headache, unspecified
CPT/HCPCS: 0241U

== ENCOUNTER 2022-10-25 07:30 | Outpatient (REF) | payer BC, SELFPAY ==
--- NOTE | ~2022-10-25 | MM_ITS ---
EXAMINATION: MM SCREENING DIGITAL BREAST TOMOSYNTHESIS, BILATERAL CLINICAL INFORMATION: Screening. Asymptomatic. The lifetime risk of breast cancer based on the Tyrer-Cuzick Model is 11%. COMPARISON: Mammography: 04/12/2022, 10/11/2021, 10/05/2021, 08/19/2020, 06/03/2019, right breast ultrasound 10/11/2021 TECHNIQUE: Digital breast tomosynthesis is performed in both the craniocaudal and mediolateral oblique views along with computer-aided detection (CAD). Synthesized 2D images are generated from the tomosynthesis. FINDINGS: The breasts are heterogeneously dense, which may obscure small masses (ACR BI-RADS breast composition Category c). Parenchymal pattern is similar to prior exams. No significant mass or abnormal calcifications. There is stable nodular asymmetry mid central left breast. There are stable asymmetries posterior outer and central inner right breast. No developing density or architectural abnormality. The axilla and skin contours are unremarkable. MM/MM tomosynthesis screening BI IMPRESSION: No significant changes from prior exams. ASSESSMENT: BI-RADS 2: Benign RECOMMENDATION: Routine annual mammography screening. This patient's information was entered into a reminder system with a target due date for their next mammogram.
== END 2022-10-25 07:31 | disposition home or self-care (01) ==
LOC: HO.MAMMO 07:30
PROVIDERS: PCP Internal Medicine; Visit Provider Internal Medicine
DX: Z12.31 Encounter for screening mammogram for malignant neoplasm of breast (principal)
CPT/HCPCS: 77063; 77067

== ENCOUNTER 2023-01-10 10:09 | Outpatient (REF) | payer BC, SELFPAY ==
--- NOTE | ~2023-01-10 | XR_ITS ---
EXAMINATION: XR ANKLE, LEFT CLINICAL INFORMATION: Left ankle pain laterally after twisting COMPARISON: None available. TECHNIQUE: AP, lateral, and mortise views of the left ankle. FINDINGS: There is a avulsion fracture distal tip of the fibula with approximately 1.5 mm distraction of fracture fragments. There is a large amount of soft tissue swelling seen. Ankle mortise appears intact. XR/XR ankle LT min 3V IMPRESSION: Avulsion fracture distal tip of the left fibula.
== END 2023-01-10 10:10 | disposition home or self-care (01) ==
LOC: HO.XRAY 10:09
PROVIDERS: PCP Internal Medicine; Visit Provider Internal Medicine
DX: S93.402D Sprain of unspecified ligament of left ankle, subsequent encounter (principal)
CPT/HCPCS: 73610

== ENCOUNTER 2023-03-02 12:03 | Outpatient (REF) | payer BC, SELFPAY ==
[2023-03-02 12:16] LABS: MANUAL DIFF FLAG NO
[2023-03-02 13:21] LABS: Basophils Percent Auto 0.3 % (0-2); Eosinophils Absolute Auto 0.2 X10*3/uL (0.0-0.4); Eosinophils Percent Auto 2.6 % (0-4); Hematocrit 41.1 % (37.0-47.0); Hemoglobin 13.4 g/dl (12.0-16.0); Imm Gran Abs Auto 0.01 X10*3/uL (0.00-0.03); Imm Gran Pct Auto 0.1 % (0.0-0.4); Lymphocytes Absolute Auto 2.2 X10*3/uL (1.2-4.9); Lymphocytes Percent Auto 32.1 % (20-40); Mean Corpuscular HGB Conc 32.6 g/dl (31.0-35.0); Mean Corpuscular Hemoglobin 29.3 pg (27.0-33.0); Mean Corpuscular Volume 89.9 fL (80.0-98.0); Mean Platelet Volume 10.3 fL (9.4-12.3); Monocytes Absolute Auto 0.4 X10*3/uL (0.1-1.2); Monocytes Percent Auto 5.9 % (2-11); Neutrophils Absolute Auto 4.1 x10*3/uL (2.0-8.3); Platelet Count 289 X10*3/uL (160-400); Red Blood Count 4.57 X10*6/uL (4.20-5.50)
[2023-03-02 14:00] LABS: Erythrocyte Sedimentation Rate 13 MM/HR (0-20)
[2023-03-02 14:55] LABS: Alanine Aminotransferase 63 U/L (0-31); Albumin Level 4.6 g/dL (3.5-5.0); Alkaline Phosphatase 84 U/L (39-117); Anion Gap 14 (12-20); Aspartate Amino Transferase 34 U/L (5-31); Bilirubin Total 0.4 mg/dL (0.0-1.0); Blood Urea Nitrogen 11 mg/dL (9-16); Calcium 10.6 mg/dL (8.4-10.2); Carbon Dioxide 27 mmol/L (22-29); Chloride 104 mmol/L (96-108); Estimated Glomerular Filt Rate > 60; Glucose Random 136 mg/dL (60-115); Lactate Dehydrogenase 222 U/L (122-220); Potassium 3.8 mmol/L (3.3-5.1); Sodium 141 mmol/L (135-145); Total Protein 7.9 g/dL (6.5-8.0)
[2023-03-05 13:18] LABS: Beta-2 Microglobulin, Serum 1.26 mg/L (< OR = 2.51)
== END 2023-03-02 12:04 | disposition home or self-care (01) ==
LOC: HO.LAB 12:03
PROVIDERS: PCP Internal Medicine; Visit Provider Internal Medicine Medical Oncology
DX: R59.0 Localized enlarged lymph nodes (principal)
CPT/HCPCS: 36415; 80053; 82232; 83615; 85025; 85652

== ENCOUNTER 2023-04-12 13:54 | Outpatient (AMB) | payer BC, SELFPAY ==
--- NOTE | 2023-04-12 14:00 | A.OFFVIS_ITS ---
Intake Vital Signs 04/12/23 14:02 Height 5 ft 6 in Weight 176 lb BMI 28.4 BP 110/72 Intake Visit Reasons: Annual Intake Note: The patient agreed to use of a medical office technician during this encounter. Scribed for LUIS Pittman by Radha Dubois, medical office technician, on 04/12/2023 at 2:13 pm EST. Tapper Operator: Tapper Operator Present ([place]) Allergies SEDATIVE MED Allergy (Intermediate, Uncoded 04/12/23 14:02) BURNING SENSATION Post menopausal: Yes HPI HPI Comments History of Present Illness Details She is a postmenopausal woman presenting for annual exam. Doing well with no wet process head miller concerns. Patient admits she tries to eat a healthy diet including Calcium and Vitamin D. She stays active with exercise. Currently sexually active. Denies vaginal itching and irritation. STD screening offered; she declines. Denies family hx of breast, colon and ovarian cancer. Last pap smear 08/26/20. Last mammogram 10/25/22. Not UTD on colonoscopy; missed appointment. 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 [employer] Sexual orientation: Straight/Heterosexual Gender identity: Female Female Reproductive History Menstrual Age of Menarche: 13 Menopause type: natural Total pregnancies: 1 Full term: 1 Number of Living Children: 1 Date of last pap smear: 08/26/20 (neg pap and hpv) Date of Mammogram: 10/25/22 (Birad 2) Physical Exam Vital Signs: Last Vital Signs BP 110/72 04/12/23 14:02 BMI result Body Mass Index 28.4 Const General: cooperative, healthy appearing, no acute distress, well developed and alert Orientation/consciousness: patient oriented x3 HEENT Other: lump on left jawbone Head: Yes normal to inspection Eyes General: appearance normal, both eyes and all related structures Neck Neck: Yes normal visual inspection Thyroid: Thyroid normal Chest Chest palpation & inspection: normal inspection of the chest Breast/axilla inspection: normal inspection of the breasts (no puckering, dimpling, peau de orange, retraction, discharge, masses) Breast/axilla palpation: normal palpation of the breasts Resp Effort & Inspection: normal respiratory effort GI Inspection: Yes normal to inspection Palpation (GI): Soft to palpation (to palpation) Rectal Exam - Female: deferred General: Yes bladder normal to inspection External Female Exam: normal external appearance and normal appearance of the urethra Speculum Exam - Vagina: normal appearance of the vagina, normal palpation and normal vaginal discharge Speculum Exam - Cervix: normal appearance of the cervix and normal palpation Bimanual exam- vagina & uterus: normal palpation and normal palpation Bimanual Exam- Adnexa, other: normal adnexae and no masses Skin General skin exam: no rashes or lesions noted Neuro General: patient oriented x3 Cognition (Neuro): normal cognition Extrem General: Yes normal to inspection Psych Attitude: cooperative Thought process: Normal thought process present Assessment & Plan Assessment & Plan (1) Well woman exam with routine gynecological exam: Code(s): Z01.419 - Encounter for gynecological examination (general) (routine) without abnormal findings Plan: Discussed: Current recommendations for pap smears per ASCCP guidelines. Breast awareness and periodic self breast exams. Encouraged yearly mammograms. Maintaining a healthy lifestyle including a well balanced diet including Calcium and Vitamin D and routine exercise. Contact office with any PMB. Encouraged to contact PCP regarding lump on left jawbone and scheduling colonoscopy. All of her questions and concerns were addressed to the best of my ability. RTO in 1 year for AG. Coding Level of Care Code Est Pt Prev Care 40-64y(78667) Diagnoses Well woman exam with routine gynecological exam Z01.419
[2023-04-12 14:02] VITALS: BP 110/72; BMI 28.4
== END 2023-04-12 14:28 | disposition home or self-care (01) ==
PROVIDERS: PCP Internal Medicine; Visit Provider Advanced Practice Midwife
DX: Z01.419 Encounter for gynecological examination (general) (routine) without abnormal findings (principal)
CPT/HCPCS: 99396

== ENCOUNTER → 2023-04-12 13:54 | Outpatient (BNVA) | payer BC, SELFPAY | PROVIDERS: PCP Internal Medicine; Visit Provider Advanced Practice Midwife ==

== ENCOUNTER 2023-06-02 08:23 | Outpatient (REF) | payer BC, SELFPAY ==
[2023-06-02 08:34] LABS: MANUAL DIFF FLAG NO
[2023-06-02 08:45] LABS: Basophils Percent Auto 0.4 % (0-2); Eosinophils Absolute Auto 0.2 X10*3/uL (0.0-0.4); Eosinophils Percent Auto 2.9 % (0-4); Hematocrit 38.5 % (37.0-47.0); Hemoglobin 12.8 g/dl (12.0-16.0); Imm Gran Abs Auto 0.01 X10*3/uL (0.00-0.03); Imm Gran Pct Auto 0.2 % (0.0-0.4); Lymphocytes Absolute Auto 1.6 X10*3/uL (1.2-4.9); Lymphocytes Percent Auto 30.8 % (20-40); Mean Corpuscular HGB Conc 33.2 g/dl (31.0-35.0); Mean Corpuscular Hemoglobin 29.6 pg (27.0-33.0); Mean Corpuscular Volume 88.9 fL (80.0-98.0); Monocytes Absolute Auto 0.5 X10*3/uL (0.1-1.2); Monocytes Percent Auto 9.8 % (2-11); Neutrophils Absolute Auto 2.9 x10*3/uL (2.0-8.3); Neutrophils Percent Auto 55.9 % (45-73); Platelet Count 271 X10*3/uL (160-400); Red Blood Count 4.33 X10*6/uL (4.20-5.50); Red Cell Distribution Width 13.1 % (11.0-16.0); White Blood Count 5.2 X10*3/uL (4.8-10.8)
[2023-06-02 09:19] LABS: Alanine Aminotransferase 61 U/L (0-31); Albumin Level 4.5 g/dL (3.5-5.0); Alkaline Phosphatase 80 U/L (39-117); Anion Gap 12 (12-20); Aspartate Amino Transferase 48 U/L (5-31); Bilirubin Total 0.4 mg/dL (0.0-1.0); Blood Urea Nitrogen 11 mg/dL (9-16); Carbon Dioxide 27 mmol/L (22-29); Chloride 106 mmol/L (96-108); Estimated Glomerular Filt Rate > 60; Glucose Random 105 mg/dL (60-115); Potassium 4.1 mmol/L (3.3-5.1); Sodium 141 mmol/L (135-145); Total Protein 7.6 g/dL (6.5-8.0)
[2023-06-05 16:29] LABS: Calcium (PTHI) 9.6 mg/dL (8.6-10.4); PTHI 19 pg/mL (16-77)
== END 2023-06-02 08:24 | disposition home or self-care (01) ==
LOC: HO.LAB 08:23
PROVIDERS: PCP Internal Medicine; Visit Provider Internal Medicine Medical Oncology
DX: R59.0 Localized enlarged lymph nodes (principal); E66.3 Overweight
CPT/HCPCS: 36415; 80053; 83970; 85025

== ENCOUNTER 2023-07-02 13:50 | Outpatient (REF) | payer BC, SELFPAY ==
[2023-07-02 14:46] LABS: Influenza A PCR POSITIVE (Negative); Influenza B PCR NEGATIVE (Negative); Resp Syncy Virus RNA Qual PCR NEGATIVE (Negative); SARS COV2 PCR INHOUSE NEGATIVE (Negative)
== END 2023-07-02 13:51 | disposition home or self-care (01) ==
LOC: HO.LNP 13:50
PROVIDERS: Visit Provider Internal Medicine
DX: Z11.52 Encounter for screening for COVID-19 (principal); Z20.822 Contact with and (suspected) exposure to COVID-19; R05.9 Cough, unspecified; R50.9 Fever, unspecified
CPT/HCPCS: 0241U

== ENCOUNTER 2023-09-06 08:33 | Outpatient (REF) | payer BC, SELFPAY ==
[2023-09-06 08:56] LABS: MANUAL DIFF FLAG NO
[2023-09-06 09:07] LABS: Basophils Percent Auto 0.5 % (0-2); Eosinophils Absolute Auto 0.2 X10*3/uL (0.0-0.4); Eosinophils Percent Auto 2.9 % (0-4); Hematocrit 36.8 % (37.0-47.0); Hemoglobin 12.6 g/dl (12.0-16.0); Imm Gran Abs Auto 0.01 X10*3/uL (0.00-0.03); Imm Gran Pct Auto 0.2 % (0.0-0.4); Lymphocytes Absolute Auto 1.8 X10*3/uL (1.2-4.9); Lymphocytes Percent Auto 29.3 % (20-40); Mean Corpuscular HGB Conc 34.2 g/dl (31.0-35.0); Mean Corpuscular Hemoglobin 30.1 pg (27.0-33.0); Mean Corpuscular Volume 87.8 fL (80.0-98.0); Mean Platelet Volume 9.9 fL (9.4-12.3); Monocytes Absolute Auto 0.5 X10*3/uL (0.1-1.2); Monocytes Percent Auto 7.7 % (2-11); Neutrophils Absolute Auto 3.7 x10*3/uL (2.0-8.3); Neutrophils Percent Auto 59.4 % (45-73); Platelet Count 237 X10*3/uL (160-400); Red Blood Count 4.19 X10*6/uL (4.20-5.50); Red Cell Distribution Width 12.8 % (11.0-16.0); White Blood Count 6.3 X10*3/uL (4.8-10.8)
[2023-09-06 09:35] LABS: Alanine Aminotransferase 66 U/L (0-31); Albumin Level 4.4 g/dL (3.5-5.0); Alkaline Phosphatase 69 U/L (39-117); Aspartate Amino Transferase 39 U/L (5-31); Bilirubin Direct 0.1 mg/dL (0.0-0.5); Bilirubin Total 0.3 mg/dL (0.0-1.0); Total Protein 7.3 g/dL (6.5-8.0)
== END 2023-09-06 08:34 | disposition home or self-care (01) ==
LOC: HO.LAB 08:33
PROVIDERS: Visit Provider Internal Medicine
DX: R79.89 Other specified abnormal findings of blood chemistry (principal)
CPT/HCPCS: 36415; 80076; 85025

== ENCOUNTER 2023-11-27 08:29 | Outpatient (REF) | payer BC, SELFPAY | END 2023-11-27 08:30 | disposition home or self-care (01) | LOC: HO.MAMMO 08:29 | PROVIDERS: PCP Internal Medicine; Visit Provider Internal Medicine | DX: Z12.31 Encounter for screening mammogram for malignant neoplasm of breast (principal) | CPT/HCPCS: 77063; 77067 ==

== ENCOUNTER → 2023-11-27 08:45 | Outpatient (BNV) | payer BC, SELFPAY | PROVIDERS: PCP Internal Medicine; Visit Provider Radiology Diagnostic Radiology | DX: Z12.31 Encounter for screening mammogram for malignant neoplasm of breast (principal) | CPT/HCPCS: 77063; 77067 ==

== ENCOUNTER 2024-04-08 07:43 | Outpatient (REF) | payer BC, SELFPAY ==
[2024-04-08 07:56] LABS: MANUAL DIFF FLAG NO
[2024-04-08 08:24] LABS: Basophils Percent Auto 0.5 % (0-2); Eosinophils Absolute Auto 0.1 X10*3/uL (0.0-0.4); Hematocrit 39.9 % (37.0-47.0); Hemoglobin 13.1 g/dl (12.0-16.0); Imm Gran Abs Auto 0.02 X10*3/uL (0.00-0.03); Imm Gran Pct Auto 0.5 % (0.0-0.4); Lymphocytes Absolute Auto 1.7 X10*3/uL (1.2-4.9); Lymphocytes Percent Auto 38.2 % (20-40); Mean Corpuscular HGB Conc 32.8 g/dl (31.0-35.0); Mean Corpuscular Volume 91.5 fL (80.0-98.0); Mean Platelet Volume 10.3 fL (9.4-12.3); Monocytes Absolute Auto 0.4 X10*3/uL (0.1-1.2); Monocytes Percent Auto 10.1 % (2-11); Neutrophils Absolute Auto 2.1 x10*3/uL (2.0-8.3); Neutrophils Percent Auto 47.7 % (45-73); Platelet Count 269 X10*3/uL (160-400); Red Blood Count 4.36 X10*6/uL (4.20-5.50); Red Cell Distribution Width 12.8 % (11.0-16.0); White Blood Count 4.4 X10*3/uL (4.8-10.8)
[2024-04-08 08:58] LABS: Alanine Aminotransferase 88 U/L (0-31); Albumin Level 4.4 g/dL (3.5-5.0); Alkaline Phosphatase 74 U/L (39-117); Anion Gap 12 (12-20); Aspartate Amino Transferase 50 U/L (5-31); Bilirubin Total 0.3 mg/dL (0.0-1.0); Blood Urea Nitrogen 11 mg/dL (9-16); Calcium 10.1 mg/dL (8.4-10.2); Carbon Dioxide 26 mmol/L (22-29); Chloride 109 mmol/L (96-108); Cholesterol 189 mg/dL (<200); Estimated Glomerular Filt Rate > 60; Glucose Fasting 133 mg/dL (60-99); HDL Cholesterol 60 mg/dL (>40); LDL Cholesterol Calculated 113 mg/dL (<100); Potassium 4.8 mmol/L (3.3-5.1); Sodium 142 mmol/L (135-145); Total Protein 7.4 g/dL (6.5-8.0); Triglycerides 82 mg/dL (<150)
== END 2024-04-08 07:44 | disposition home or self-care (01) ==
LOC: HO.LAB 07:43
PROVIDERS: PCP Internal Medicine; Visit Provider Internal Medicine
DX: E78.00 Pure hypercholesterolemia, unspecified (principal); R79.89 Other specified abnormal findings of blood chemistry
CPT/HCPCS: 36415; 80053; 80061; 85025

== ENCOUNTER 2024-04-11 06:30 | Outpatient (REF) | payer BC, SELFPAY ==
[2024-04-11 08:04] LABS: Estimated Average Glucose 128 mg/dL; Hemoglobin A1c % 6.1 % (<6.0)
[2024-04-11 08:34] LABS: Anion Gap 12 (12-20); Blood Urea Nitrogen 11 mg/dL (9-16); Carbon Dioxide 26 mmol/L (22-29); Chloride 107 mmol/L (96-108); Estimated Glomerular Filt Rate > 60; Glucose Fasting 122 mg/dL (60-99); Potassium 3.8 mmol/L (3.3-5.1); Sodium 141 mmol/L (135-145)
== END 2024-04-11 06:31 | disposition home or self-care (01) ==
LOC: HO.LAB 06:30
PROVIDERS: PCP Internal Medicine; Visit Provider Internal Medicine
DX: R73.03 Prediabetes (principal)
CPT/HCPCS: 36415; 80048; 83036

== ENCOUNTER 2024-04-22 08:19 | Outpatient (REF) | payer BC, SELFPAY ==
--- NOTE | ~2024-04-22 | US_ITS ---
EXAMINATION: US ABDOMEN COMPLETE CLINICAL INFORMATION: Elevated LFTs. COMPARISON: Ultrasound abdomen complete 07/24/2019 and 11/09/2016. TECHNIQUE: Real-time imaging of the abdominal viscera. FINDINGS: PANCREAS: The visualized pancreas appears unremarkable but the pancreatic tail is obscured by bowel gas. ABDOMINAL AORTA: The proximal, mid, and distal segments are normal in caliber. INFERIOR VENA CAVA: Visualized portions are normal. LIVER: The liver is normal in size. The liver contour is normal. There is diffuse increased liver parenchymal echogenicity, consistent with hepatic steatosis. No focal hepatic lesion. There is no intrahepatic biliary duct dilatation seen. GALLBLADDER: Normal. The gallbladder is physiologically distended without evidence of stones, sludge, polyps, wall thickening or pericholecystic fluid. COMMON BILE DUCT: Normal in caliber measuring 0.5 cm in diameter. RIGHT KIDNEY: Normal. No hydronephrosis. No renal calculi or focal parenchymal lesions. The kidney measures 9.6 cm in maximum dimension. LEFT KIDNEY: Normal. No hydronephrosis. No renal calculi or focal parenchymal lesions. The kidney measures 9.7 cm in maximum dimension. SPLEEN: Normal. The spleen measures 8.3 cm in maximum dimension. FREE FLUID: None. US/US abdomen complete IMPRESSION: Hepatic steatosis. Electronically signed by: Mihai Mullen MD 06/05/2024 01:46 PM EST
== END 2024-04-22 08:20 | disposition home or self-care (01) ==
LOC: HO.US 08:19
PROVIDERS: PCP Internal Medicine; Visit Provider Internal Medicine
DX: R74.01 Elevation of levels of liver transaminase levels (principal)
CPT/HCPCS: 76700

== ENCOUNTER 2024-05-07 08:04 | Outpatient (AMB) | payer BC, SELFPAY ==
[2024-05-07 08:08] VITALS: BP 122/80; PULSE 72; O2SAT 100; BMI 27.3
--- NOTE | 2024-05-07 08:08 | MHC.OFFVIS ---
Vital Signs 05/07/24 08:08 Height 5 ft 6 in Weight 169 lb 5.04 oz BMI 27.3 BP 122/80 Blood Pressure Location Rt brachial Position Sitting Pulse 72 Pulse Source Pulse Oximeter Pulse Oximetry (%) 100 Oxygen Delivery Method Room Air Intake Visit Reasons: Colonoscopy Screening Intake Note: Manuela presents in office today for a scheduled colo consult CC; Pt has not had labs. Rx orders have not been placed. Pt has not had diagnostics/imaging performed. Pt has hx of abnormal LFTs. Relevant GI Sx as reported per pt. None ?Hx of any recent surgeries? Pt has denied any previous hx of colo. Pertinent FMHx -- Diabetes. Tag Maker Required: No Allergies SEDATIVE MED Allergy (Intermediate, Uncoded 05/07/24 08:17) BURNING SENSATION HPI HPI Colonoscopy Screening: Details: 53 year old? female with past medical history of newly diagnosed diabetes is here today for pre colonoscopy screening.? Patient was sent to us by her PCP.? This is her first colonoscopy screening.? Patient denies any gastrointestinal symptoms in the past or at present.? Denies any personal or family history of gastrointestinal disease, colon polyps, or CRC.? Denies history of difficulty with sedation or anesthesia in the past.? Negative for history of sleep apnea.? Denies any history of cardiac, renal, pulmonary, or hepatic disease.?? No history of infectious? diseases like hepatitis A, B, C, HIV or tuberculosis.? 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 [employer] Sexual orientation: Straight/Heterosexual Gender identity: Female Female Reproductive History Menstrual Age of Menarche: 13 Review of Systems Const Denies weight gain and Denies weight loss ENT Reports no additional complaints, Denies dysphagia and Denies odynophagia Card Reports no additional complaints Resp Reports no additional complaints GI Denies abdominal pain, Denies belching, Denies melena, Denies bloating, Denies change in bowel habits, Denies dysphagia, Denies excessive flatus, Denies dyspepsia, Denies heartburn, Denies diarrhea, Denies loose stools, Denies nausea, Denies odynophagia and Denies vomiting Musc Reports no additional complaints Neuro Reports no additional complaints Psych Reports no additional complaints Endo Reports no additional complaints Physical Exam Vital Signs: Last Vital Signs Pulse 72 05/07/24 08:08 BP 122/80 05/07/24 08:08 Pulse Ox 100 05/07/24 08:08 Oxygen Delivery Method Room Air 05/07/24 08:08 BMI result Body Mass Index 27.3 Const General: healthy appearing, no acute distress and well developed Nutritional Appearance: well nourished Orientation/consciousness: patient oriented x3 Resp Effort & Inspection: normal respiratory effort, able to speak in complete sentences, no tracheal deviation and symmetric chest movement Auscultation: clear to auscultation bilaterally Cardio Rate: regular rate GI Inspection: Yes normal to inspection and No distended Palpation (GI): Soft to palpation, not firm, nontender and No hepatosplenomegaly present Auscultation: normal bowel sounds General: Yes no CVA tenderness Back/Spine/Pelvis Back: no CVA tenderness Skin General skin exam: elasticity normal, turgor normal and dry skin Neuro General: patient oriented x3 Psych Appearance: grossly normal Mental Status: mental status grossly normal Assessment & Plan Assessment & Plan (1) Screen for colon cancer: Code(s): Z12.11 - Encounter for screening for malignant neoplasm of colon Plan Patient denies any GI, cardiac or respiratory symptoms.? Denies any issues with anesthesia in the past.? Denies any history of sleep apnea.? No history infectious diseases in the past or present.? Not on any anticoagulation therapy.? No family or personal history of colon cancer or polyps.? Patient denies melena, hematochezia, unintentional weight loss or ribbon like stools.? Discussed at length the pre-procedure,? prep, diet & medications as well as what to expect prior, during and after the procedure.?? Stressed the importance of good bowel prep.? Recommended the use of Vaseline or Calmoseptine OTC & baby wipes with bowel movements to promote comfort.? ?Patient verbalizes understanding and agrees to plan of care.? She was given the opportunity to ask questions and all questions answered.? We will see her after the procedure.? Medications: New bisacodyl (Dulcolax (bisacodyl)) take 4 tabs at noon the day before your colonoscopy 20 mg (4 x 5 mg) PO ONCE 4 tabs 0RF 1 day Z12.11 - Encounter for screening for malignant neoplasm of colon polyethylene glycol 3350 (Miralax) As directed by gastroenterology department at [facility] 238 grams PO ONCE 238 grams 0RF Z12.11 - Encounter for screening for malignant neoplasm of colon Coding Level of Care Code New Pt Level 3 (23428) Diagnoses Screen for colon cancer Z12.11 Time Spent (min) 40 Comment 30 minutes spent with patient and additional 10 minutes spent reviewing her records
== END 2024-05-07 08:55 | disposition home or self-care (01) ==
PROVIDERS: PCP Internal Medicine; Visit Provider Nurse Practitioner Family
DX: Z01.818 Encounter for other preprocedural examination (principal); Z12.11 Encounter for screening for malignant neoplasm of colon
CPT/HCPCS: S0285

== ENCOUNTER → 2024-05-07 08:04 | Outpatient (BNVA) | payer BC, SELFPAY | PROVIDERS: PCP Internal Medicine; Visit Provider Nurse Practitioner Family ==

== ENCOUNTER 2024-05-23 08:07 | Outpatient (REF) | payer BC, SELFPAY ==
[2024-05-23 08:59] LABS: Estimated Average Glucose 126 mg/dL; Hemoglobin A1C 146.9644 umol/L; Total Hemoglobin (HGBA1C) 3481.6198 umol/L
[2024-05-23 09:25] LABS: Anion Gap 12 (12-20); Blood Urea Nitrogen 14 mg/dL (9-16); Calcium 10.6 mg/dL (8.4-10.2); Carbon Dioxide 27 mmol/L (22-29); Chloride 107 mmol/L (96-108); Estimated Glomerular Filt Rate > 60; Glucose Random 119 mg/dL (60-115); Potassium 4.3 mmol/L (3.3-5.1); Sodium 142 mmol/L (135-145)
== END 2024-05-23 08:08 | disposition home or self-care (01) ==
LOC: HO.LAB 08:07
PROVIDERS: PCP Internal Medicine; Visit Provider Internal Medicine
DX: E11.9 Type 2 diabetes mellitus without complications (principal)
CPT/HCPCS: 36415; 80048; 83036

== ENCOUNTER 2024-06-28 10:49 | Outpatient (REF) | payer BC, SELFPAY ==
[2024-06-28 11:30] LABS: Alanine Aminotransferase 67 U/L (0-31); Albumin Level 4.6 g/dL (3.5-5.0); Alkaline Phosphatase 73 U/L (39-117); Anion Gap 11 (12-20); Aspartate Amino Transferase 38 U/L (5-31); Bilirubin Total 0.3 mg/dL (0.0-1.0); Blood Urea Nitrogen 17 mg/dL (9-16); Calcium 10.2 mg/dL (8.4-10.2); Carbon Dioxide 27 mmol/L (22-29); Chloride 108 mmol/L (96-108); Estimated Glomerular Filt Rate > 60; Glucose Random 100 mg/dL (60-115); Potassium 4.5 mmol/L (3.3-5.1); Sodium 141 mmol/L (135-145); Total Protein 7.7 g/dL (6.5-8.0)
[2024-06-28 11:50] LABS: Estimated Average Glucose 123 mg/dL; Hemoglobin A1C 127.2608 umol/L; Hemoglobin A1c % 5.9 % (<6.0); Total Hemoglobin (HGBA1C) 3074.8251 umol/L
--- OUTSIDE RECORDS SUMMARY | 2024-07-02 11:46 | XMS_ITS ---
Author Organization Jett Riddle III, MD Address [address] [place] [address] [place] [address] Care Team Providers Care Radiographer Technologist Name Role Phone Rui Lemos MD Primary Care Provider Jett Oakes Unavailable [phone] Allergies Allergen (clinical drug ingredient) Drug/Non Drug Allergy documented on EMR Reaction Allergy Type Onset Date Status Seasonale Unknown Drug Allergy Active REASON FOR VISIT Cervical adenopathy, Overweight, Spinal stenosis Medications Medication SIG (Take, Route, Fr equency, Duration) Notes Start Date End Date Status FLUoxetine HCl 10 MG TAKE 1 CAPSULE BY M OUTH EVERY DAY Oral Active Ibuprofen 400 MG TAKE 1 TABLET BY JUANA TH EVERY FOUR HOURS NEEDED FOR PAIN Oral Active Social History Tobacco Use: Social History Observation Description Date Details (start date - stop date) Former Smoker NA - NA Sex Assigned At : Social History Observation Description Sex Assigned At Female Tobacco Use/Smoking Question Answer Notes Patient is a former smoker How long has it been since y ou last smoked? 1-3 months Additional Findings: Tobacco User Light cigarett e smoker ((1-9 cigs/day) Additional Findings: Tobacco Non-User Ex-cigaret te smoker Problems Problem Type SNOMED Code ICD Code Onset Dates Problem Status W/U Status Risk Notes Problem 17680534 Adenopathy (R59.9) Active confirmed The lymph node will be observed at short intervals. Comprehensive bloood work was ordered. If there is progression in the lymph node. It will be excised and study further. Vital Signs Temperature 97.2 degrees Fahrenheit 08/06/19 24 Blood pressure systolic 110 mm Hg 08/06/19 24 Blood pressure diastolic 70 mm Hg 024 Heart Rate 71 /min 08/06/2023 Height 67 in 08/06/2023 Weight 175 lbs 08/06/2023 BMI 27.41 kg/m2 08/06/2023 Encounters Encounter Location Date Provider Diagnosis Jett Riddle III, MD [address] [place] [address] DR [place], [place] [address] 08/06/2023 Jett Riddle Former smoker Z87.89 1 ; Adenopathy R59.9 ; Overweight E66.3 and History of spinal stenosis Z87.39 Assessments Encounter Date Diagnosis (ICD Code) Assessment Notes Treatment Notes Treatment Clinical Notes 08/06/2023 Former smoker (ICD-10 - Z87.891) She has a plan to prevent relapse and times of stress and illness. 08/06/2023 Adenopathy (ICD-10 - R59.9) The lymph node will be observed at short intervals. Comprehensive bloood work was ordered. If there is progression in the lymph node. It will be excised and study further. 08/06/2023 Overweight (ICD-10 - E66.3) Her body mass index is 27. We discussed her diet and nutrition. We made a plan to lose weight at a rate of one half damien a pound per week. 08/06/2023 History of spinal stenosis (ICD-10 - Z87.39) She has had a laminectomy in the past. Her pain is much improved but still present intermittently. Plan Of Treatment Medication Medication Name Sig Start Date Stop Date Notes FLUoxetine HCl 10 MG TAKE 1 CAPSULE BY M OUTH EVERY DAY Oral Ibuprofen 400 MG TAKE 1 TABLET BY JUANA TH EVERY FOUR HOURS NEEDED FOR PAIN Oral Pending Test Test Name Order Date PROFILE, RANDOM (COMPREHENSIVE METABOLIC ) 08/06/2023 LDH 08/06/2023 SED RATE (ESR) 08/06/2023 CBC WITH AUTO DIFF 08/06/2023 Next Appt Details Follow Up: 2 Months, Reason: OV Progress Notes * WALLY COLLADOOB:1970 (52 yo F)Acc No.[id number]:08/06/2023 Progress Notes Patient:?COLEEN COLLADO Provider:?Jett Riddle MD :1970???Age:52 Y???Sex:Female D ate:08/06/2023 Address:[address] [place], [place] [id number] Pcp:Rui Lemos MD Subjective: * Chief Complaints: * ???Cervical adenopathyOverwe ightSpinal stenosis * HPI: ???COVID-19 Screening:?Questions?Have you experienced fever, chills, cough, sore throat, shortness of breath, difficulty breathing, muscle aches, loss of taste or smell??No ?Have you been exposed to the virus within the last 10 days??No ?Have you travelled internationally in the last 10 days??No ?Have you been exposed to COVID-19 in the past??No ? In July of 2022 she presented with an enlarged lymph node in the left neck. This was persistent so a biopsy was done which showed no evidence of malignancy. The lymph node has waxed and waned. Recently it has enlarged and she is here for evaluation. The lymph node was about 2 cm and nontender and freely mobile. We agreed to continue observing it. TThere was no other adenopathy or splenomegaly. She has been medically stable otherwise. She denies any constitutional B symptoms or fevers or chills or pain. * ROS:?General/Constitutional:?pain?only normal aches and pains.?Chills?denies.?Fatigue?admits.?Fever?denies.?ENT:?Decreased hearing?denies.?Respiratory:?Cough?denies.?Cardiovascular:?Chest pain with exertion?denies.?Dyspnea on exertion?denies.?Shortness of breath?denies.?Gastrointestinal:?Constipation?occasional.?Decreased appetite?denies.?Diarrhea?denies.?Heartburn?denies.?Nausea?denies.?Rectal bleeding?denies.?Vomiting?denies.?Hematology:?bruising?denies.?petechiae?denies.?Swollen glands?none have been noted.?Genitourinary:?Frequent urination?denies.?Musculoskeletal:?Muscle aches?denies.?Painful joints?denies.?Sciatica?denies.?Weakness?denies.?Skin:?Itching?denies.?Rash?denies.?Skin lesion(s)?denies.?Neurologic:?Difficulty speaking?denies.?Dizziness?denies.?Headache?denies.?Low back pain?that is chronic.?Psychiatric:?Depressed mood?denies.? * Medical History:? * Surgical History:?Surgical p rocedure right elbow 2017Laminectomy lumbar spine for spinal stenosis 2005 * Hospitalization/Major Diagno stic Procedure:?Denies Past Hospitalization * Family History:?Father: emilia tilley 83 yrs, Hypertension, diabetes mellitus, Alzheimer's disease, coronary artery disease, valvular heart disease.?Mother: alive 76 yrs, Chronic kidney disease, arthritis, nervous condition.?Spouse: alive.?3 brother(s) , 2 sister(s) - healthy. 1 daughter(s) - healthy. .? Her father has many medical issues. His mother has several. She has 3 healthy brothers who have high blood pressure and 2 healthy sisters, one of whom has diabetes. She has a daughter who is 25 healthy and well. She is not aware of any cancer family syndromes. She is not aware of any family history of mental illness, substance use disorder, or addictions. * Social History:?Tobacco Use:?Tobacco Use/Smoking?Patient is a?former smoker ?How long has it been since you last smoked??1-3 months ?Additional Findings: Tobacco User?Light cigarette smoker ((1-9 cigs/day) ?Additional Findings: Tobacco Non-User?Ex-cigarette smoker ???She was born in [facility]. She has lived in the [facility] for 33 years. She has been to [place] for 22 years. They have 1 daughter Lulu who is 25 and healthy and well. There are no grandchildren. 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 She has no christianity objection to blood transfusion. She smokes one package of cigarettes per day. * Medications:?TakingFLUoxetin e HCl 10 MG Capsule TAKE 1 CAPSULE BY MOUTH EVERY DAY Oral Ibuprofen 400 MG Tablet TAKE 1 TABLET BY MOUTH EVERY FOUR HOURS NEEDED FOR PAIN Oral Medication List reviewed and reconciled with the patientTaking FLUoxetine HCl 10 MG Capsule TAKE 1 CAPSULE BY MOUTH EVERY DAY Oral Taking Ibuprofen 400 MG Tablet TAKE 1 TABLET BY MOUTH EVERY FOUR HOURS NEEDED FOR PAIN Oral Medication List reviewed and reconciled with the patient * Allergies:?Seasonaleno[Aller gies Verified] Objective: * Vitals:?Ht: 67, Wt: 175, BMI :27.41, BP: 110/70, HR: 71, Temp: 97.2, Wt-k.38. * Examination: ???General Examination: ?GENERAL APPEARANCE:?pleasant, well nourished, well developed, in no acute distress, calm and relaxed , overweight , woman.?HEAD:?atraumatic, normocephalic.?EYES:?eomi, perrla, anicteric, conjugate.?EARS:?normal.?NOSE:?septum intact.?ORAL CAVITY:?normal, unremarkable.?NECK/THYROID:?no jugular venous distention, no carotid bruit, thyroid normal.?LYMPH NODES:?2 cm mobile nontender lymph node left neck, soft, spleen normal.?SKIN:?no suspicious lesions, anicteric.?HEART:?no clicks, gallops, murmurs, or rubs, regular rhythm, S1, S2 normal, no s3, or vascular bruits.?LUNGS:?clear to auscultation .?BREASTS:?not examined.?ABDOMEN:?bowel sounds normal, no ascites, no organomegaly, no mass.?RECTAL EXAM:?not examined.?MUSCULOSKELETAL:?extremities unremarkable, no clubbing, cyanosis or edema.?PERIPHERAL PULSES:?normal.?NEUROLOGIC:?alert and oriented, cranial nerves 2-12 grossly intact, deep tendon reflexes 2+ symmetrical, motor strength normal upper and lower extremities, sensory exam intact.?PSYCH:?alert, oriented.? Assessment: * Assessment: 1.?Former smoker - Z87.891 ( Primary), She has a plan to prevent relapse and times of stress and illness.?2.?Adenopathy - R59.9, The lymph node will be observed at short intervals. Comprehensive bloood work was ordered. If there is progression in the lymph node. It will be excised and study further.?3.?Overweight - E66.3, Her body mass index is 27. We discussed her diet and nutrition. We made a plan to lose weight at a rate of one half damien a pound per week.?4.?History of spinal stenosis - Z87.39, She has had a laminectomy in the past. Her pain is much improved but still present intermittently.? Plan: * Treatment: 2.?Adenopathy?LAB: PROFILE, RANDOM (COMPREHENSIVE METABOLIC) ?LAB: LDH ?LAB: SED RATE (ESR) ?LAB: CBC WITH AUTO DIFF 3.?Overweight?LAB: PROFILE, RANDOM (COMPREHENSIVE METABOLIC) ?LAB: LDH ?LAB: SED RATE (ESR) ?LAB: CBC WITH AUTO DIFF 4.?Others? Continue FLUoxetine HCl Capsule, 10 MG, TAKE 1 CAPSULE BY MOUTH EVERY DAY, Oral;?Continue Ibuprofen Tablet, 400 MG, TAKE 1 TABLET BY MOUTH EVERY FOUR HOURS NEEDED FOR PAIN, Oral.?? * Procedure Codes:? * Preventive Medicine:? ??Counseling:?Care goal follow-up plan:?Counseling for abnormal BMI given?Yes ?Above Normal BMI Follow-up?Dietary management education, guidance, and counseling, Dietary needs education, Exercise promotion: strength training, Exercise promotion: stretching, Feeding regime, Giving encouragement to exercise, Lifestyle education regarding diet, Nutrition / feeding management, Nutrition therapy, Prescribed activity/exercise education, Prescribed diet education, Prescribed dietary intake, Special diet education, Weight monitoring , Intervention, Order not done: Medical or Other reason not done ?Smoking/Tobacco Use?Patient counseled on the dangers of tobacco use and urged to quit.?08/06/2023 * Follow Up:?2 Months (Reason: OV) * Images: * Sign off status: Completed true * Provider:?Jett Riddle MD Date:?07/23 Generated for Printi navneet/Roman/eTransmitting on:?07/02/2024 11:46 AM EST History and Physical Notes * HPI (History of Present Illness) Category Sub-Category Detail Notes COVID-19 Screening Questions Have you expe rienced fever, chills, cough, sore throat, shortness of breath, difficulty breathing, muscle aches, loss of taste or smell?: No Have you been exposed to the virus withi n the last 10 days?: No Have you travelled internationally in e last 10 days?: No Have you been exposed to COVID-19 in the past?: No Examination Category Sub-Category Detail Notes General Examination GENERAL APPEARANCE: pleasant , well nourished, well developed, in no acute distress, calm and relaxed , overweight , woman HEAD: atraumatic, normocep halic EYES: eomi, perrla, anicte rosalia, conjugate EARS: normal NOSE: septum intact NECK/THYROID: no jugular venous di stention, no carotid bruit, thyroid normal HEART: no clicks, gallops, murmurs, or rubs, regular rhythm, S1, S2 normal, no s3, or vascular bruits LUNGS: clear to auscultatio n ABDOMEN: bowel sounds normal, no ascites, no organomegaly, no mass NEUROLOGIC: alert and oriented, cranial nerves 2-12 grossly intact, deep tendon reflexes 2+ symmetrical, motor strength normal upper and lower extremities, sensory exam intact SKIN: no suspicious lesion s, anicteric PERIPHERAL PULSES: normal BREASTS: not examined MUSCULOSKELETAL: extremities unremark able, no clubbing, cyanosis or edema LYMPH NODES: 2 cm mobile nontende r lymph node left neck, soft, spleen normal RECTAL EXAM: not examined PSYCH: alert, oriented ORAL CAVITY: normal, unremarkable
--- OUTSIDE RECORDS SUMMARY | 2024-07-02 11:46 | XMS_ITS ---
Author Organization Jett Riddle III, MD Address [address] [place] [address] [place] [address] Care Team Providers Care Sports Marketing Specialist Name Role Phone Rui Lemos MD Primary Care Provider Jett Oakes [facility] [phone] Allergies Allergen (clinical drug ingredient) Drug/Non Drug Allergy documented on EMR Reaction Allergy Type Onset Date Status Seasonale Unknown Drug Allergy Active REASON FOR VISIT follow up Medications Medication SIG (Take, Route, Fr equency, Duration) Notes Start Date End Date Status Ibuprofen 400 MG TAKE 1 TABLET BY JUANA TH EVERY FOUR HOURS NEEDED FOR PAIN Oral Active FLUoxetine HCl 10 MG TAKE 1 CAPSULE BY M OUTH EVERY DAY Oral Active Social History Tobacco Use: Social [...] Additional Findings: Tobacco Non-User Ex-cigaret te smoker Encounters Encounter Location Date Provider Diagnosis Jett Riddle III, MD [address] [place] [address] [place] [address] 11/05/2023 Jett Riddle Plan Of Treatment Medication Medication Name Sig Start Date Stop Date Notes Ibuprofen 400 MG TAKE 1 TABLET BY JUANA TH EVERY FOUR HOURS NEEDED FOR PAIN Oral FLUoxetine HCl 10 MG TAKE 1 CAPSULE BY M OUTH EVERY DAY Oral Progress Notes * MARGOT COLLADOEDOB:1970 (53 yo F)Acc No.[id number]:11/05/2023 Progress Notes Patient:?COLEEN COLLADO Provider:?Jett Riddle MD :1970???Age:53 Y???Sex:Female D ate:11/05/2023 Address:[address] [place] [address] Pcp:Rui Lemos MD Subjective: * Chief Complaints: * ???1. Follow up. * HPI: ???COVID-19 Screening:?Questions?Have you experienced fever, chills, cough, sore throat, shortness of breath, difficulty breathing, muscle aches, loss of taste or smell??No ?Have you been exposed to the virus within the last 10 days??No ?Have you travelled internationally in the last 10 days??No ?Have you been exposed to COVID-19 in the past??No * ROS:?General/Constitutional:?pain?only normal aches and pains.?Chills?denies.?Fatigue?admits.?Fever?denies.?ENT:?Decreased hearing?denies.?Respiratory:?Cough?denies.?Cardiovascular:?Chest pain with exertion?denies.?Dyspnea on exertion?denies.?Shortness of breath?denies.?Gastrointestinal:?Constipation?denies.?Decreased appetite?denies.?Diarrhea?denies.?Heartburn?denies.?Nausea?denies.?Rectal bleeding?denies.?Vomiting?denies.?Hematology:?bruising?denies.?petechiae?denies.?Swollen glands?none have been noted.?Genitourinary:?Frequent urination?denies.?Musculoskeletal:?Muscle aches?denies.?Painful joints?denies.?Sciatica?denies.?Weakness?denies.?Skin:?Itching?denies.?Rash?denies.?Skin lesion(s)?denies.?Neurologic:?Difficulty speaking?denies.?Dizziness?denies.?Headache?denies.?Low back pain?denies.?Psychiatric:?Depressed mood?denies.? * Medical History:?Cervical ad enopathy, Overweight, Childhood meningitis, Extraction maxillary molar, Negative test for tuberculosis, Tobacco dependence, Spinal stenosis. * Surgical History:?Surgical p rocedure right elbow 2016, Laminectomy lumbar spine for spinal stenosis 2005. * Hospitalization/Major Diagno stic Procedure:?Denies Past Hospitalization. * Family History:?Father: emilia tilley 83 yrs, [...] Tobacco Non-User?Ex-cigarette smoker ???She was born in [facility]. She has lived in the [facility] for 33 years. She has been to [place] for 22 years. They have 1 daughter Lulu who is 25 and healthy and well. There are no grandchildren. 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 She has no latter day objection to blood transfusion. She smokes one package of cigarettes per day. * Medications:?Taking FLUoxeti ne HCl 10 MG Capsule TAKE 1 CAPSULE BY MOUTH EVERY DAY Oral , Taking Ibuprofen 400 MG Tablet TAKE 1 TABLET BY MOUTH EVERY FOUR HOURS NEEDED FOR PAIN Oral , Medication List reviewed and reconciled with the patient * Allergies:?Seasonale. Objective: * Vitals:? * Examination: ???General Examination: ?GENERAL APPEARANCE:?pleasant, well nourished, well developed, in no acute distress, calm and relaxed.?HEAD:?atraumatic, normocephalic.?EYES:?eomi, perrla, anicteric, conjugate.?EARS:?normal.?NOSE:?septum intact.?ORAL CAVITY:?normal, unremarkable.?NECK/THYROID:?no jugular venous distention, no carotid bruit, thyroid normal.?LYMPH NODES:?no enlarged lymph nodes,spleen normal.?SKIN:?no suspicious lesions, anicteric.?HEART:?no clicks, gallops, murmurs, or rubs, regular rhythm, S1, S2 normal, no s3, or vascular bruits.?LUNGS:?clear to auscultation .?BREASTS:??no masses palpable bilaterally.?ABDOMEN:?bowel sounds normal, no ascites, no organomegaly, no mass.?RECTAL EXAM:?not examined.?MUSCULOSKELETAL:?extremities unremarkable, no clubbing, cyanosis or edema.?PERIPHERAL PULSES:?normal.?NEUROLOGIC:?alert and oriented, cranial nerves 2-12 grossly intact, deep tendon reflexes 2+ symmetrical, motor strength normal upper and lower extremities, sensory exam intact.?PSYCH:?alert, oriented.? Assessment: Plan: * Treatment: * Images: * The named appointment provid er may or may not be the originator of this progress note, and it is not deemed complete until electronically signed by the appointment provider. Sign off status: Pending * Provider:?Jett Riddle MD Date:?10/21 Generated for Elisai navneet/Roman/eTransmitting on:?07/02/2024 11:46 AM EST History and [...] in no acute distress, calm and relaxed HEAD: atraumatic, normocep halic EYES: eomi, perrla, [...] lesion s, anicteric PERIPHERAL PULSES: normal BREASTS: no masses palpable b ilaterally MUSCULOSKELETAL: extremities unremark able, no clubbing, cyanosis or edema LYMPH NODES: no enlarged lymph no [place],spleen normal RECTAL EXAM: not examined PSYCH: alert, oriented ORAL CAVITY: normal, unremarkable
--- OUTSIDE RECORDS SUMMARY | 2024-07-02 11:47 | XMS_ITS | Patient Health Record ---
Author Organization Jett Riddle III, MD Address [address] [place] [address] LINDA Samuel [facility] [place] [place] [address] Care Team Providers Care Cane Cutter Name Role Phone Rui Lemos MD Primary Care Provider Jett Oakes Unavailable [phone] Allergies Allergen (clinical drug ingredient) Drug/Non Drug Allergy documented on EMR Reaction Allergy Type Onset Date Status Seasonale Unknown Drug Allergy Active Reason For Referral No Information Medications Medication SIG (Take, Route, Fr equency, [...] Problem Status W/U Status Risk Notes Problem 0094290 Former smoker (Z87.891) Active confirmed She has a plan to prevent relapse and times of stress and illness. Problem 571769026 Overweight (E66.3) Active confirmed Her body mass i ndex is 27. We discussed her diet and nutrition. We made a plan to lose weight at a rate of one half damien a pound per week. Problem 12764100 Adenopathy (R59.9) Active confirmed The lymph node will be observed at short intervals. Comprehensive bloood work was ordered. If there is progression in the lymph node. It will be excised and study further. Problem 855575447 Cervical adenopathy (R59.0) Active confirmed The lymph node in the upper left neck is Unchanged It is mobile and nontender. She will be observed. The differential diagnosis remains a chronic lymphoproliferative process versus reactive lymph node. Problem 570998844 History of spinal stenosis (Z87.39) Active confirmed She has had a laminectomy in the past. Her pain is much improved but still present intermittently. Vital Signs Heart Rate 71 /min 08/06/2023 Temperature 97.2 degrees Fahrenheit 08/06/2023 Blood pressure diastolic 70 mm Hg 08/06/2023 Height 67 in 08/06/2023 Blood pressure systolic 110 mm Hg 08/06/2023 Weight 175 lbs 08/06/2023 BMI 27.41 kg/m2 08/06/2023 Encounters Encounter Location Date Provider Diagnosis Jett Riddle III, MD [address] [place] [address] [place] [address] 08/06/2023 Jett Riddle Former smoker Z87.89 1 [...] but still present intermittently. Plan Of Treatment Pending Test Test Name Order Date PROFILE, RANDOM (COMPREHENSIVE METABOLIC ) 08/06/2023 PROFILE, RANDOM (COMPREHENSIVE METABOLIC ) 06/27/2022 PROFILE, RANDOM (COMPREHENSIVE METABOLIC ) 03/14/2023 GGT 06/27/2022 LDH 12/14/2022 LDH 08/06/2023 LDH 06/27/2022 CBC w DIFF 12/14/2022 CBC w DIFF 03/14/2023 CBC w DIFF 06/27/2022 SED RATE (ESR) 06/27/2022 SED RATE (ESR) 12/14/2022 SED RATE (ESR) 08/06/2023 MONO TEST (HETEROPHILE AB) 06/27/2022 BETA-2 MICROGLOBULIN, SERUM 06/27/2022 US BIOPSY NEEDLE GUIDE 06/27/2022 PARATHYROID HORMONE INTACT 03/14/2023 CBC WITH AUTO DIFF 08/06/2023 US biopsy lymph node 06/27/2022 Insurance Providers Payer Name Payer Address Payer Phone Subscriber Number Group Number Insured Name Patient Relationship to Insured Coverage Start Date Coverage End Date [facility] [address] [place], [place] [id number] [phone] [id number] COLEEN COLLADO Self - patient is the insured Medical (General) History Medical History History ICD Code Cervical adenopathy Overweight Childhood meningitis Extraction maxillary molar Negative test for tuberculosis Tobacco dependence Spinal stenosis Surgical History Surgery Date(Month/Year) Laminectomy lumbar spine for spinal sten osis 2005 Surgical procedure right elbow 2017
--- OUTSIDE RECORDS SUMMARY | 2024-07-02 11:47 | XMS_ITS ---
Author Organization Jett Riddle III, MD Address [address] [place] [address] [place] [address] Care Team Providers Care Managed Care Coordinator Name Role Phone Rui Lemos MD Primary Care Provider Jett Oakes Unavailable [phone] Allergies Allergen (clinical drug ingredient) Drug/Non Drug Allergy documented on EMR Reaction Allergy Type Onset Date Status Seasonale Unknown Drug Allergy Active REASON FOR VISIT Left cervical adenopathy, Overweight, Spinal stenosis Medications Medication SIG [...] Additional Findings: Tobacco Non-User Ex-cigaret te smoker Vital Signs Temperature 97.5 degrees Fahrenheit 06/07/20 23 Blood pressure systolic 100 mm Hg 06/07/20 23 Blood pressure diastolic 70 mm Hg 023 Heart Rate 76 /min 06/07/2023 Height 67 in 06/07/2023 Weight 175 lbs 06/07/2023 BMI 27.41 kg/m2 06/07/2023 Encounters Encounter Location Date Provider Diagnosis Jett Riddle III, MD [address] [place] [address] [place] [address] 06/07/2023 Jett Riddle Cervical adenopathy R59.0 ; History of spinal stenosis Z87.39 ; Overweight E66.3 and Tobacco dependence F17.200 Assessments Encounter Date Diagnosis (ICD Code) Assessment Notes Treatment Notes Treatment Clinical Notes 06/07/2023 Cervical adenopathy (ICD-10 - R59.0) The lymph node in the upper left neck is Unchanged It is mobile and nontender. She will be observed. The differential diagnosis remains a chronic lymphoproliferative process versus reactive lymph node. 06/07/2023 History of spinal stenosis (ICD-10 - Z87.39) She has had a laminectomy in the past. Her pain is much improved but still present intermittently. 06/07/2023 Overweight (ICD-10 - E66.3) She continues with her weight loss strategy. 06/07/2023 Tobacco dependence (ICD-10 - F17.200) She has been made aware of the various smoking cessation programs in the area. We discussed the health consequences of tobacco smoking. Plan Of Treatment Medication Medication Name Sig Start Date Stop Date Notes FLUoxetine HCl 10 MG TAKE 1 CAPSULE BY M OUTH EVERY DAY Oral Ibuprofen 400 MG TAKE 1 TABLET BY JUANA TH EVERY FOUR HOURS NEEDED FOR PAIN Oral Next Appt Details Follow Up: 3 Months, Reason: ov Progress Notes * MARGOT COLLADOEDOB:1970 (52 yo F)Acc No.[id number]:06/07/2023 Progress Notes Patient:?COLEEN COLLADO Provider:?Jett Riddle MD :1970???Age:52 Y???Sex:Female D ate:06/07/2023 Address:[address] [place] [address] Pcp:Rui Lemos MD Subjective: * Chief Complaints: * ???Left cervical adenopathyO verweightSpinal stenosis * HPI: ???COVID-19 Screening:?Questions?Have you experienced fever, chills, cough, sore throat, shortness of breath, difficulty breathing, muscle aches, loss of taste or smell??No ?Have you been exposed to the virus within the last 10 days??No ?Have you travelled internationally in the last 10 days??No ?Have you been exposed to COVID-19 in the past??No ? She returns for ongoing follow-up enlargement in her left neck. It is clearly visible, palpable, measuring 2 cm. It has not enlarged or contracted since the last visit. In the past. A core biopsy of this showed no malignancy. She has no other adenopathy or splenomegaly. On today's examination. Neuro cavity was unremarkable. She is free of any symptoms. * ROS:?General/Constitutional:?pain?only normal aches and pains.?Chills?denies.?Fatigue?admits.?Fever?denies.?ENT:?Decreased hearing?denies.?Respiratory:?Cough?denies.?Cardiovascular:?Chest pain with exertion?denies.?Dyspnea on exertion?denies.?Shortness of breath?denies.?Gastrointestinal:?Constipation?occasional.?Decreased appetite?denies.?Diarrhea?denies.?Heartburn?occasional.?Nausea?denies.?Rectal bleeding?denies.?Vomiting?denies.?Hematology:?bruising?denies.?petechiae?denies.?Swollen glands?none have been noted.?Genitourinary:?Frequent urination?at night.?Musculoskeletal:?Muscle aches?denies.?Painful joints?denies.?Sciatica?denies.?Weakness?denies.?Skin:?Itching?denies.?Rash?denies.?Skin lesion(s)?denies.?Neurologic:?Difficulty speaking?denies.?Dizziness?denies.?Headache?denies.?Low back pain?that is [...] Tobacco Non-User?Ex-cigarette smoker ???She was born in [facility]. She has lived in the [facility] for 33 years. She has been to [place] for 22 years. They have 1 daughter Lulu who is 25 and healthy and well. There are no grandchildren. 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 She has no congregational objection to blood transfusion. She smokes one [...] Vitals:?Ht: 67, Wt: 175, BMI :27.41, BP: 100/70, HR: 76, Temp: 97.5, Wt-k.38. * Examination: ???General Examination: ?GENERAL APPEARANCE:?pleasant, well nourished, well developed, in no acute distress, calm and relaxed , overweight , woman.?HEAD:?atraumatic, normocephalic.?EYES:?eomi, perrla, anicteric, conjugate.?EARS:?normal.?NOSE:?septum intact.?ORAL CAVITY:?normal, unremarkable.?NECK/THYROID:?no jugular venous distention, no carotid bruit, thyroid normal.?LYMPH NODES:?Enlarged lymph node left neck which is nontender and mobile, otherwiseno enlarged lymph nodes,spleen normal.?SKIN:?no suspicious lesions, anicteric.?HEART:?no [...] upper and lower extremities, sensory exam intact.?PSYCH:?alert, oriented , thought process logical, goal directed , speech clear , mood/affect full range , judgement and insight good , cognitive function intact.? Assessment: * Assessment: 1.?Cervical adenopathy - R59 .0 (Primary), The lymph node in the upper left neck is Unchanged It is mobile and nontender. She will be observed. The differential diagnosis remains a chronic lymphoproliferative process versus reactive lymph node.?2.?History of spinal stenosis - Z87.39, She has had a laminectomy in the past. Her pain is much improved but still present intermittently. 3.?Overweight - E66.3, She continues with her weight loss strategy.?4.?Tobacco dependence - F17.200, She has been made aware of the various smoking cessation programs in the area. We discussed the health consequences of tobacco smoking.? Plan: * Treatment: * Procedure Codes:? * Preventive Medicine:? ??Counseling:?Care goal follow-up plan:?Counseling for abnormal BMI given?Yes ?Smoking/Tobacco Use?Patient counseled on the dangers of tobacco use and urged to quit.?06/07/2023 * Follow Up:?3 Months (Reason: ov) * Images: * Sign off status: Completed true * Provider:?Jett Riddle MD Date:?05/23 Generated for Ad toth/Roman/eTransmitting on:?07/02/2024 11:46 AM EST History and Physical Notes * HPI (History of Present Illness) Category Sub-Category Detail Notes COVID-19 Screening Questions Have you expe rienced fever, chills, cough, sore throat, shortness of breath, difficulty breathing, muscle aches, loss of taste or smell?: No Have you been exposed to the virus withi n the last 10 days?: No Have you travelled internationally in last 10 days?: No Have you been [...] no clubbing, cyanosis or edema LYMPH NODES: Enlarged lymph node left neck which is nontender and mobile, otherwiseno enlarged lymph nodes,spleen normal RECTAL EXAM: not examined PSYCH: alert, oriented , th ought process logical, goal directed , speech clear , mood/affect full range , judgement and insight good , cognitive function intact ORAL CAVITY: normal, unremarkable
== END 2024-06-28 10:50 | disposition home or self-care (01) ==
LOC: HO.LAB 10:49
PROVIDERS: PCP Internal Medicine; Visit Provider Internal Medicine
DX: E11.9 Type 2 diabetes mellitus without complications (principal); R79.89 Other specified abnormal findings of blood chemistry
CPT/HCPCS: 36415; 80053; 83036

== ENCOUNTER 2024-08-21 08:21 | Outpatient (AMB) | payer BC, SELFPAY ==
--- NOTE | 2024-08-21 08:42 | A.OFFPC_ITS ---
Vital Signs 08/21/24 08:44 Height 5 ft 4.96 in Weight 167 lb 2 oz BMI 27.8 BP 110/70 Blood Pressure Location Lt brachial Position Sitting Pulse 81 Pulse Source Pulse Oximeter Temp 97.1 F Temp Source Skin Pulse Oximetry (%) 98 Oxygen Delivery Method Room Air Intake Visit Reasons: establish care Intake Note: Patient is a new patient here to establish care for T2DM, Hx of Depression. Transferring care from Dr Malcolm. Medical records have not been requested and have not received. Income Tax Preparer Required: No Heel Emery Buffer: Not Required per policy Accompanied by: Self / Same As Patient Allergies metformin Adverse Reaction (Intermediate, Verified 08/21/24 08:57) lower blood sugar SEDATIVE MED Allergy (Intermediate, Uncoded 08/21/24 08:57) BURNING SENSATION Tobacco use date assessed: 08/21/24 Dental Screening Dental Screen Date: 08/21/24 Did you have a dental visit in the last 12 months?: Yes Did you have a dental problem in the last 6 months where you did not have access to dental care?: No Was dental information given to patient?: Patient has dentist [facility] Medical History History of depression Asthma Surgical History H/O elbow surgery H/O Spinal surgery Family History (Updated 08/21/24 @ 08:53 by Fabio [place] Jerrica) Father Dementia Diabetes FH: HTN (hypertension) Other Mental health disorder Social History Housing: House Alcohol intake: current Alcohol intake frequency: holidays/special occasions only Patient Tobacco Use Status: Former Tobacco user (2020) e-Cigarette/Vaping Use: Never Used Second Hand Smoke Exposure: Yes service: No Current occupational status: employed 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 1. Little interest or pleasure in doing things: not at all 2. Feeling down, depressed, or hopeless: not at all 3. Trouble falling or staying asleep, or sleeping too much: not at all 4. Feeling tired or having little energy: not at all 5. Poor appetite or overeating: not at all 6. Feeling bad about yourself - or that you are a failure or have let yourself or your family down: not at all 7. Trouble concentrating on things, such as reading the newspaper or watching television: not at all 8. Moving or speaking so slowly that other people could have noticed. Or the opposite - being so fidgety or restless that you have been moving around a lot more than usual: not at all 9. Thoughts that you would be better off or of hurting yourself in some way: not at all Total score: 0 Source: Developed by Drs. Jett Ferraro, Sybil Gilmore, Benson Wade and colleagues, with an educational jeramie from [employer]. Thrive Questionnaire I am a: Patient What is your living situation today?: I have a steady place to live Within the past 12 months, did the food you bought not last and you didn't have the money to get more?: Never true Within the past 12 months, did you worry whether your food would run out before you got money to buy more?: Never true Do you have trouble paying for medicines?: I choose not to answer this question Do you have trouble getting transportation to medical appointments?: No Do you have trouble paying your heating and electricity bill?: No Do you have trouble taking care of your child, family member or friend?: No Do you have trouble with day-to-day activities such as bathing, preparing meals, shopping, managing finances, etc.?: No Are you currently unemployed and looking for a job?: No Are you interested in more education?: No Please select the resources that you would like help with: None Currently or been in a relationship where the following occur: No concerns reported THRIVE Score: 0 AUDIT C Alcohol Use Questionnaire (AUDIT-C) 1. How often do you have a drink containing alcohol?: 2-4 times a month 2. How many drinks containing alcohol do you have on a typical day when you are drinking?: 1 or 2 3. How often do you have six or more drinks on one occasion?: Monthly Total Score: 4 TIFFANIE-7 AMB Questionnaire TIFFANIE-7 Feeling nervous, anxious, or on edge: 0 = Not at all Not being able to stop or control worryin = Not at all Worrying too much about different things: 0 = Not at all Trouble relaxin = Not at all Being so restless that it is hard to sit still: 0 = Not at all Becoming easily annoyed or irritable: 0 = Not at all Feeling afraid as if something awful might happen: 0 = Not at all Total TIFFANIE-7 score (0-4 normal; 5-9 mild; 10-14 moderate; 15-21 severe): 0 Source: Developed by Drs. Jett Ferraro, Sybil Gilmore, Benson Wade and colleagues, with an educational jeramie from [employer]. Physical exam (Primary Care) Vital Signs: Last Vital Signs Temp 97.1 F 08/21/24 08:44 Pulse 81 08/21/24 08:44 BP 110/70 08/21/24 08:44 Pulse Ox 98 08/21/24 08:44 Oxygen Delivery Method Room Air 08/21/24 08:44 BMI result Body Mass Index 27.8 Tobacco/Smoking Status: Tobacco use Status Tobacco use date assessed 08/21/24 08/21/24 08:57 Patient Tobacco Use Status Former Tobacco user (2020) 08/21/24 08:57 e-Cigarette/Vaping Use Never Used 08/21/24 08:57 PHQ-9: PHQ-9 Score PHQ-9: Total score 0 08/21/24 08:57 Currently or been in a relationship where the following occur: No concerns reported Results AMB Hemoglobin A1c AMB Hemoglobin A1c 5.9 % Last Edit by SHAN Barnett on 08/21/24 09:44 Coding Assessment & Plan Assessment & Plan Orders: Orders AMB Hemoglobin A1c Today Z13.9 - Encounter for screening, unspecified
[2024-08-21 08:44] VITALS: BP 110/70; PULSE 81; TEMP 36.2; O2SAT 98; BMI 27.8
--- OUTSIDE RECORDS SUMMARY | 2024-08-21 11:11 | XMS_ITS ---
Author Organization Jett Riddle III, MD Address [address] [place] [address] [place] [address] Care Team Providers Care Manager Action Name Role Phone Rui Lemos MD Primary Care Provider Jett Oakes Unavailable [phone] Allergies Allergen (clinical drug ingredient) Drug/Non Drug [...] Problem Status W/U Status Risk Notes Problem [id number] Adenopathy (R59.9) Active confirmed The lymph node [...] Date Provider Diagnosis Jett Riddle III, MD [address] [place] [address] DR RINALDIEDWARD, COLEEN [address] 08/06/2023 Jett Riddle Former smoker Z87.89 1 [...] Notes * WALLY COLLADOOB:1970 (52 yo F)Acc No.[id number]:08/06/2023 Progress Notes Patient:?COLEEN COLLADO Provider:?Jett Riddle MD :1970???Age:52 Y???Sex:Female D ate:08/06/2023 Address:[address] [place] [id number] Pcp:Rui Lemos MD Subjective: * Chief Complaints: [...] Tobacco Non-User?Ex-cigarette smoker ???She was born in [facility]. She has lived in the [facility] for 33 years. She has been to [place] for 22 years. They have 1 daughter Lulu who is 25 and healthy and well. There are no grandchildren. 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 She has no confucianist objection to blood transfusion. She smokes one [...] Provider:?Jett Riddle MD Date:?07/23 Generated for Printi ng/Roman/eTransmitting on:?08/21/2024 11:11 AM EST History and Physical Notes * HPI (History of Present Illness) Category Sub-Category Detail Notes COVID-19 Screening Questions Have you had any new onset fever, chills, cough, congestion, sore throat, shortness of breath, muscle aches?: No Have you been exposed to the [...]
--- OUTSIDE RECORDS SUMMARY | 2024-08-21 11:11 | XMS_ITS ---
Author Organization Jett Riddle III, MD Address [address] [place] [address] [place] [address] Care Team Providers Care Fiscal Economist Name Role Phone Rui Lemos MD Primary Care Provider Jett Oakes Unavailable [phone] Allergies Allergen (clinical drug ingredient) Drug/Non Drug [...] Date Provider Diagnosis Jett Riddle III, MD [address] [place] [address] [place] [address] 06/07/2023 Jett Riddle Cervical adenopathy R59.0 ; [...] Notes * MARGOT COLLADOEDOB:1970 (52 yo F)Acc No.[id number]:06/07/2023 Progress Notes Patient:?COLEEN COLLADO Provider:?Jett Riddle MD :1970???Age:52 Y???Sex:Female D ate:06/07/2023 Address:[address] [place] [address] Pcp:Rui Lemos MD Subjective: * Chief Complaints: [...] Tobacco Non-User?Ex-cigarette smoker ???She was born in [facility]. She has lived in the [facility] for 33 years. She has been to [place] for 22 years. They have 1 daughter Lulu who is 25 and healthy and well. There are no grandchildren. 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 She has no gnosticist objection to blood transfusion. She smokes one [...] Riddle MD Date:?05/23 Generated for Ad toth/Roman/eTransmitting on:?08/21/2024 11:11 AM EST History and Physical Notes * HPI (History of Present Illness) Category Sub-Category Detail Notes COVID-19 Screening Questions Have you had any new onset fever, chills, cough, congestion, sore throat, shortness of breath, muscle aches?: No Have you been exposed to the virus withi n the last 10 days?: No Have you travelled internationally in [facility] last 10 days?: No Have you been [...]
--- OUTSIDE RECORDS SUMMARY | 2024-08-21 11:12 | XMS_ITS | Patient Health Record ---
Author Organization Jett Riddle III, MD Address [address] [place] [address] [place] [address] Care Team Providers Care Farm Reporter Name Role Phone Rui Lemos MD Primary Care Provider Jett Oakes Unavailable [phone] Allergies Allergen (clinical drug ingredient) Drug/Non Drug [...] Problem Status W/U Status Risk Notes Problem [id number] Former smoker (Z87.891) Active confirmed She has a plan to prevent relapse and times of stress and illness. Problem 315925521 Overweight (E66.3) Active confirmed Her body mass i ndex is 27. We discussed her diet and nutrition. We made a plan to lose weight at a rate of one half damien a pound per week. Problem 49001784 Adenopathy (R59.9) Active confirmed The lymph node will be observed at short intervals. Comprehensive bloood work was ordered. If there is progression in the lymph node. It will be excised and study further. Problem 453910067 Cervical adenopathy (R59.0) Active confirmed The lymph node in the upper left neck is Unchanged It is mobile and nontender. She will be observed. The differential diagnosis remains a chronic lymphoproliferative process versus reactive lymph node. Problem 493843207 History of spinal stenosis (Z87.39) Active confirmed [...] Insured Coverage Start Date Coverage End Date [facility] [address] [place], [place] [id number] COLEEN COLLADO Self - patient is the insured Medical (General) History Medical History History ICD Code Cervical adenopathy Overweight Childhood meningitis Extraction maxillary molar Negative test for tuberculosis Tobacco dependence Spinal stenosis Surgical History Surgery Date(Month/Year) Laminectomy lumbar spine for spinal sten osis 2005 Surgical procedure right elbow 2017
--- OUTSIDE RECORDS SUMMARY | 2024-08-21 11:12 | XMS_ITS ---
Author Organization Jett Riddle III, MD Address [address] [place] [address] [place] [address] Care Team Providers Care System Dispatcher Name Role Phone Rui Lemos MD Primary Care Provider Jett Oakes [facility] [phone] Allergies Allergen (clinical drug ingredient) Drug/Non Drug [...] Date Provider Diagnosis Jett Riddle III, MD [address] [place] [address] [place] [address] 11/05/2023 Jett Riddle Plan Of Treatment Medication Medication Name Sig Start Date Stop Date Notes Ibuprofen 400 MG TAKE 1 TABLET BY JUANA TH EVERY FOUR HOURS NEEDED FOR PAIN Oral FLUoxetine HCl 10 MG TAKE 1 CAPSULE BY M OUTH EVERY DAY Oral Progress Notes * MARGOT COLLADOEDOB:1970 (53 yo F)Acc No.[id number]:11/05/2023 Progress Notes Patient:?COLEEN COLLADO Provider:?Jett Riddle MD :1970???Age:53 Y???Sex:Female D ate:11/05/2023 Address:[address] [place] [address] Pcp:Rui Lemos MD Subjective: * Chief Complaints: * ???1. Follow up. * HPI: ???COVID-19 Screening:?Questions?Have you had any new onset fever, chills, cough, congestion, sore throat, shortness of breath, muscle aches??No ?Have you been exposed to the virus [...] Tobacco Non-User?Ex-cigarette smoker ???She was born in [facility]. She has lived in the [facility] for 33 years. She has been to [place] for 22 years. They have 1 daughter Lulu who is 25 and healthy and well. There are no grandchildren. 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 She has no jain objection to blood transfusion. She smokes one [...] * Provider:?Jett Riddle MD Date:?10/21 Generated for Printi ng/Roman/eTransmitting on:?08/21/2024 11:11 AM EST History and Physical Notes * HPI (History of Present Illness) Category Sub-Category Detail Notes COVID-19 Screening Questions Have you had any new onset fever, chills, cough, congestion, sore throat, shortness of breath, muscle aches?: No Have you been exposed to the virus withi n the last 10 days?: No Have you travelled internationally in [facility] last 10 days?: No Have you [...]
== END 2024-08-21 09:53 | disposition home or self-care (01) ==
PROVIDERS: PCP Internal Medicine; Visit Provider Internal Medicine
DX: Z13.9 Encounter for screening, unspecified (principal)

== ENCOUNTER → 2024-08-21 08:21 | Outpatient (BNVA) | payer BC, SELFPAY | PROVIDERS: PCP Internal Medicine; Visit Provider Internal Medicine | DX: R59.0 Localized enlarged lymph nodes (principal); E11.9 Type 2 diabetes mellitus without complications | CPT/HCPCS: 83036; 96127 ==

== ENCOUNTER 2024-09-04 11:23 | Outpatient (AMB) | payer BC, SELFPAY ==
--- NOTE | 2024-09-04 11:27 | A.OFFVIS_ITS ---
Vital Signs 3 09/04/24 11:37 Height 5 ft 6 in Weight 167 lb 6 oz BMI 27.0 BP 122/58 L Blood Pressure Location Lt brachial Position Sitting Pulse 81 Intake Visit Reasons: Localized enlarged lymph nodes Intake Note: Patient is seen in office for evaluation and treatment of enlarged lymph nodes of the left side of the neck. Pt c/o: had bx done on 2022, onset 4yrs, admits to increase/decrease, once in a while sore throat, denies pain, problems swallowing or any other concerns Epidemiology Internship Required: No Accompanied by: Self / Same As Patient Allergies metformin Adverse Reaction (Intermediate, Verified 09/04/24 11:35) lower blood sugar SEDATIVE MED Allergy (Intermediate, Uncoded 09/04/24 11:35) BURNING SENSATION Medication List - Last Reconciled 09/04/24 by Cristhian San MD blood sugar diagnostic (True Metrix Glucose Test Strip) twice a day blood-glucose meter (True Metrix Glucose Meter) Test blood sugar twice a day lancets (Easy Touch Safety Lancets) test blood sugar twice a day metformin ER mg PO HPI Comments Details: 53-year-old female patient presenting for evaluation of an enlarged submandibular lymph node. This has been present for several years and waxes and wanes in size. She occasionally has some discomfort when the lesion is palpated. She also reports occasional sore throat prior to enlargement of the node. She previously underwent an ultrasound-guided core biopsy in 2022 which revealed evidence of a reactive lymph node. Note was made that an excisional biopsy was recommended if the lymph node persisted to be enlarged. She denies fever or chills, nausea or vomiting. She denies any other enlarged lymph nodes. 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 [employer] Sexual orientation: Straight/Heterosexual Gender identity: Female Cognitive needs: No Hearing needs: No Vision needs: Yes (Glasses) Female Reproductive History Menstrual Age of Menarche: 13 Review of Systems Const All systems reviewed & are unremarkable except as noted in HPI and below Denies chills, Denies fever(s), Denies headache(s), Denies poor appetite and Denies weakness ENT Denies headache(s) Card Denies chest pain, Denies irregular heart rhythm, Denies palpitations and Denies dyspnea Resp Denies cough, Denies excessive phlegm production and Denies dyspnea GI Denies abdominal pain, Denies bloating, Denies change in bowel habits, Denies constipation, Denies heartburn, Denies diarrhea, Denies nausea and Denies vomiting Denies urinary frequency Musc Denies back pain, Denies muscle weakness and Denies numbness Skin/Breast Denies changing lesions and Denies unusual bruising Neuro Denies headache(s), Denies numbness, Denies paresthesias and Denies weakness Psych Denies anxiety and Denies depression Endo Denies palpitations Mark/Lymph Denies lymphadenopathy Physical Exam Vital Signs: Last Vital Signs Pulse 81 09/04/24 11:37 BP 122/58 L 09/04/24 11:37 BMI result Body Mass Index 27.0 Const General: cooperative and no acute distress Nutritional Appearance: well nourished Orientation/consciousness: patient oriented x3 Limitations: no limitations HEENT Head: Yes normocephalic and Yes atraumatic Ears: hearing grossly normal bilaterally Neck Neck images: 2 1. Approximately 2 cm enlarged lymph node below the angle of the mandible, mobile within the neck without fixation to muscle or skin. No tenderness to palpation. No other cervical or submandibular nodes appreciated. Resp Effort & Inspection: normal respiratory effort, no audible wheezes, no cough and no respiratory distress Cardio Jugular venous distension: no JVD GI Inspection: Yes normal to inspection Skin Other: Warm, dry, no rash Neuro General: patient oriented x3 Extrem General: Yes no clubbing, cyanosis or edema Assessment & Plan Assessment & Plan (1) Submandibular lymphadenopathy: Code(s): R59.0 - Localized enlarged lymph nodes Category: Medical Plan 53-year-old female patient presenting with an enlarged lymph node below the mandible on the left side which is been present for several years without significant improvement. Previous core biopsy was benign but she remains concerned because of the large size of the node. She has requested excision of this enlarged lymph node. I reviewed the procedure, risks, and alternatives in detail and she has consented to a an excision of the left submandibular lymph node. This will be scheduled as a short-stay surgery. Coding Level of Care Code New Pt Level 4 (50175) Diagnoses Submandibular lymphadenopathy R59.0
[2024-09-04 11:37] VITALS: BP 122/58; PULSE 81; BMI 27.0
--- OUTSIDE RECORDS SUMMARY | 2024-09-04 12:01 | XMS_ITS ---
Author Organization Jett Riddle III, MD Address [address] [place] [address] [place] [address] Care Team Providers Care Beater Engineer Name Role Phone Rui Lemos MD Primary Care Provider Jett Oakes Unavailable [phone] Allergies Allergen (clinical drug ingredient) Drug/Non Drug [...] Date Provider Diagnosis Jett Riddle III, MD [address] [place] [address] [place] [address] 06/07/2023 Jett Riddle Cervical adenopathy R59.0 ; [...] Notes * MARGOT COLLADOEDOB:1970 (52 yo F)Acc No.[id number]:06/07/2023 Progress Notes Patient:?COLEEN COLLADO Provider:?Jett Riddle MD :1970???Age:52 Y???Sex:Female D ate:06/07/2023 Address:[address] [place] [address] Pcp:Rui Lemos MD Subjective: * Chief Complaints: [...] Tobacco Non-User?Ex-cigarette smoker ???She was born in [facility]. She has lived in the [facility] for 33 years. She has been to [place] for 22 years. They have 1 daughter Lulu who is 25 and healthy and well. There are no grandchildren. 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 She has no sikh objection to blood transfusion. She smokes one [...] Riddle MD Date:?05/23 Generated for Ad toth/Roman/eTransmitting on:?09/04/2024 12:01 PM EST History and Physical Notes * HPI (History of Present Illness) Category Sub-Category Detail Notes COVID-19 Screening Questions Have you had any new onset fever, chills, cough, congestion, sore throat, shortness of breath, muscle aches?: No Have you been exposed to the virus withi n the last 10 days?: No Have you travelled internationally in [facility] last 10 days?: No Have you been [...]
--- OUTSIDE RECORDS SUMMARY | 2024-09-04 12:01 | XMS_ITS ---
Author Organization Jett Riddle III, MD Address [address] [place] [address] [place] [address] Care Team Providers Care Environmental Education Specialist Name Role Phone Rui Lemos MD Primary Care Provider Jett Oakes Unavailable [phone] Allergies Allergen (clinical drug ingredient) Drug/Non Drug [...] Problem Status W/U Status Risk Notes Problem 50685318 Adenopathy (R59.9) Active confirmed The lymph node [...] Date Provider Diagnosis Jett Riddle III, MD [address] [place] [address] [address] RINALDIEDWARD, COLEEN [address] 08/06/2023 Jett Riddle Former smoker Z87.89 1 [...] Notes * WALLY COLLADOOB:1970 (52 yo F)Acc No.[id number]:08/06/2023 Progress Notes Patient:?COLEEN COLLADO Provider:?Jett Riddle MD :1970???Age:52 Y???Sex:Female D ate:08/06/2023 Address:[address] [place], [place] [id number] Pcp:Rui Lemos MD Subjective: * Chief Complaints: [...] Tobacco Non-User?Ex-cigarette smoker ???She was born in [facility]. She has lived in the [facility] for 33 years. She has been to [place] for 22 years. They have 1 daughter Lulu who is 25 and healthy and well. There are no grandchildren. 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 She has no pentecostalism objection to blood transfusion. She smokes one [...] Riddle MD Date:?07/23 Generated for Printi navneet/Roman/eTransmitting on:?09/04/2024 12:01 PM EST History and Physical [...]
--- OUTSIDE RECORDS SUMMARY | 2024-09-04 12:02 | XMS_ITS | Patient Health Record ---
Author Organization Jett Riddle III, MD Address [address] [place] [address] LINDA Samuel [facility] [address] Care Team Providers Care Communications Tower Technician Name Role Phone Rui Lemos MD Primary Care Provider Jett Oakes Unavailable [phone] Allergies Allergen (clinical drug ingredient) Drug/Non Drug [...] Problem Status W/U Status Risk Notes Problem 5515007 Former smoker (Z87.891) Active confirmed She has a plan to prevent relapse and times of stress and illness. Problem 891660912 Overweight (E66.3) Active confirmed Her body mass i ndex is 27. We discussed her diet and nutrition. We made a plan to lose weight at a rate of one half damien a pound per week. Problem 89740747 Adenopathy (R59.9) Active confirmed The lymph node will be observed at short intervals. Comprehensive bloood work was ordered. If there is progression in the lymph node. It will be excised and study further. Problem 433055717 Cervical adenopathy (R59.0) Active confirmed The lymph node in the upper left neck is Unchanged It is mobile and nontender. She will be observed. The differential diagnosis remains a chronic lymphoproliferative process versus reactive lymph node. Problem 076148936 History of spinal stenosis (Z87.39) Active confirmed [...] Insured Coverage Start Date Coverage End Date [facility] [address] [place], [place] [id number] COLEEN COLLADO Self - patient is the insured Medical (General) History Medical History History ICD Code Cervical adenopathy Overweight Childhood meningitis Extraction maxillary molar Negative test for tuberculosis Tobacco dependence Spinal stenosis Surgical History Surgery Date(Month/Year) Laminectomy lumbar spine for spinal sten osis 2005 Surgical procedure right elbow 2017
== END 2024-09-04 11:51 | disposition home or self-care (01) ==
PROVIDERS: PCP Internal Medicine; Visit Provider Surgery
DX: R59.0 Localized enlarged lymph nodes (principal)
CPT/HCPCS: 99204

== ENCOUNTER 2024-09-18 06:35 | Day surgery (SDC) | payer BC, SELFPAY ==
--- OUTSIDE RECORDS SUMMARY | 2024-09-12 12:57 | XMS_ITS ---
Author Organization Jett Riddle III, MD Address [address] [place] [address] [place] [address] Care Team Providers Care Milk Sampler Name Role Phone Rui Lemos MD Primary Care Provider Jett Oakes Unavailable [phone] Allergies Allergen (clinical drug ingredient) Drug/Non Drug [...] Problem Status W/U Status Risk Notes Problem 81800167 Adenopathy (R59.9) Active confirmed The lymph node [...] Date Provider Diagnosis Jett Riddle III, MD [address] [place] [address] DR RINALDIEDWARD, COLEEN [address] 08/06/2023 Jett Riddle Former smoker Z87.89 1 [...] Notes * WALLY COLLADOOB:1970 (52 yo F)Acc No.[id number]:08/06/2023 Progress Notes Patient:?COLEEN COLLADO Provider:?Jett Riddle MD :1970???Age:52 Y???Sex:Female D ate:08/06/2023 Address:[address] [place], [place] [id number] Pcp:uRi Lemos MD Subjective: * Chief Complaints: * [...] Tobacco Non-User?Ex-cigarette smoker ???She was born in [facility]. She has lived in the [facility] for 33 years. She has been to [place] for 22 years. They have 1 daughter Lulu who is 25 and healthy and well. There are no grandchildren. 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 She has no judaism objection to blood transfusion. She smokes one [...] Riddle MD Date:?07/23 Generated for Printi navneet/Roman/eTransmitting on:?09/12/2024 12:57 PM EST History and Physical Notes * [...]
--- OUTSIDE RECORDS SUMMARY | 2024-09-12 12:57 | XMS_ITS | Patient Health Record ---
Author Organization Jett Riddle III, MD Address [address] [place] [address] [place] [address] Care Team Providers Care Body Trimmer Name Role Phone Rui Lemos MD Primary Care Provider Jett Oakes Unavailable [phone] Allergies Allergen (clinical drug ingredient) Drug/Non Drug [...] Problem Status W/U Status Risk Notes Problem 9147439 Former smoker (Z87.891) Active confirmed She has a plan to prevent relapse and times of stress and illness. Problem 567031442 Overweight (E66.3) Active confirmed Her body mass i ndex is 27. We discussed her diet and nutrition. We made a plan to lose weight at a rate of one half damien a pound per week. Problem 35822958 Adenopathy (R59.9) Active confirmed The lymph node will be observed at short intervals. Comprehensive bloood work was ordered. If there is progression in the lymph node. It will be excised and study further. Problem 050489770 Cervical adenopathy (R59.0) Active confirmed The lymph node in the upper left neck is Unchanged It is mobile and nontender. She will be observed. The differential diagnosis remains a chronic lymphoproliferative process versus reactive lymph node. Problem 968451886 History of spinal stenosis (Z87.39) Active confirmed [...] Insured Coverage Start Date Coverage End Date [facility] [address] [place], [place] [id number] [phone] [id number] COLEEN COLLADO Self - patient is the insured Medical (General) History Medical History History ICD Code Cervical adenopathy Overweight Childhood meningitis Extraction maxillary molar Negative test for tuberculosis Tobacco dependence Spinal stenosis Surgical History Surgery Date(Month/Year) Laminectomy lumbar spine for spinal sten osis 2005 Surgical procedure right elbow 2017
--- OUTSIDE RECORDS SUMMARY | 2024-09-12 12:57 | XMS_ITS ---
Author Organization Jett Riddle III, MD Address [address] [place] [address] [place] [address] Care Team Providers Care General Manager In Training Name Role Phone Rui Lemos MD Primary Care Provider Jett Oakes Unavailable [phone] Allergies Allergen (clinical drug ingredient) Drug/Non Drug [...] Provider Diagnosis Jett Riddle III, MD [address] [place] [address] [place] [address] 06/07/2023 Jett Riddle Cervical adenopathy R59.0 ; [...] Notes * MARGOT COLLADOEDOB:1970 (52 yo F)Acc No.[id number]:06/07/2023 Progress Notes Patient:?COLEEN COLLADO Provider:?Jett Riddle MD :1970???Age:52 Y???Sex:Female D ate:06/07/2023 Address:[address] [place] [address] Pcp:Rui Lemos MD Subjective: * Chief Complaints: [...] Tobacco Non-User?Ex-cigarette smoker ???She was born in [facility]. She has lived in the [facility] for 33 years. She has been to [place] for 22 years. They have 1 daughter Lulu who is 25 and healthy and well. There are no grandchildren. 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 She has no protestant objection to blood transfusion. She smokes one [...] Riddle MD Date:?05/23 Generated for Ad toth/Roman/eTransmitting on:?09/12/2024 12:57 PM EST History and Physical Notes * HPI (History of Present Illness) Category Sub-Category Detail Notes COVID-19 Screening Questions Have you had any new onset fever, chills, cough, congestion, sore throat, shortness of breath, muscle aches?: No Have you been exposed to the virus withi n the last 10 days?: No Have you travelled internationally in [facility] last 10 days?: No Have you [...]
--- OUTSIDE RECORDS SUMMARY | 2024-09-12 12:57 | XMS_ITS ---
Author Organization Jett Riddle III, MD Address [address] [place] [address] [place] [address] Care Team Providers Care Fabrication And Layout Craftsman Name Role Phone Rui Lemso MD Primary Care Provider Jett Oakes [facility] [phone] Allergies Allergen (clinical drug ingredient) Drug/Non Drug [...] Date Provider Diagnosis Jett Riddle III, MD [address] [place] [address] [place] [address] 11/05/2023 Jett Riddle Plan Of Treatment Medication Medication Name Sig Start Date Stop Date Notes Ibuprofen 400 MG TAKE 1 TABLET BY JUANA TH EVERY FOUR HOURS NEEDED FOR PAIN Oral FLUoxetine HCl 10 MG TAKE 1 CAPSULE BY M OUTH EVERY DAY Oral Progress Notes * MARGOT COLLADOEDOB:1970 (53 yo F)Acc No.[id number]:11/05/2023 Progress Notes Patient:?COLEEN COLLADO Provider:?Jett Riddle MD :1970???Age:53 Y???Sex:Female D ate:11/05/2023 Address:[address] [place] [address] Pcp:Rui Lemos MD Subjective: * Chief Complaints: [...] Tobacco Non-User?Ex-cigarette smoker ???She was born in [facility]. She has lived in the [facility] for 33 years. She has been to [place] for 22 years. They have 1 daughter Lulu who is 25 and healthy and well. There are no grandchildren. 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 She has no muslim objection to blood transfusion. She smokes one [...] Riddle MD Date:?10/21 Generated for Printi ng/Roman/eTransmitting on:?09/12/2024 12:57 PM EST History and Physical Notes * HPI (History of Present Illness) Category Sub-Category Detail Notes COVID-19 Screening Questions Have you had any new onset fever, chills, cough, congestion, sore throat, shortness of breath, muscle aches?: No Have you been exposed to the virus withi n the last 10 days?: No Have you travelled internationally in [facility] last 10 days?: No Have [...]
[2024-09-16 12:51] VITALS: BMI 27.3
--- NOTE | 2024-09-17 08:57 | P.CONAN_ITS ---
Documented by User: Aixa Cervantes NP 09/17/24 08:57 HPI - Anesthesia Eval Consult details Narrative: 53yo F for Colonoscopy PMFSH Active Problems Active Problems: All Active Problems Submandibular lymphadenopathy (Acute) Diabetes mellitus (Acute) Upper respiratory tract infection (Acute) Well woman exam with routine gynecological exam (Acute) Past Medical History Medical History Submandibular lymphadenopathy Diabetes mellitus History of depression Asthma Family History Family History Father Dementia Diabetes FH: HTN (hypertension) Other Mental health disorder Surgical History Surgical History H/O elbow surgery H/O Spinal surgery Social History Social History Housing: House Are you a primary critical care nurse to a significant other at home: No Do you presently have visiting nurse or other home services: No Alcohol intake: current Alcohol intake frequency: a few times a week Patient Tobacco Use Status: Former Tobacco user e-Cigarette/Vaping Use: Never Used Second Hand Smoke Exposure: Yes Use of substances other than those prescribed or required for medical reasons: No Have you been hit, kicked, punched, or otherwise hurt by someone within the past year? 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 [employer] Sexual orientation: Straight/Heterosexual Gender identity: Female Cognitive needs: No Hearing needs: No Vision needs: Yes (Glasses) Meds Allergies Allergy/AdvReac Type Severity Reaction Status Date / Time metformin AdvReac Intermediate lower Verified 09/18/24 07:27 blood sugar SEDATIVE MED AdvReac Intermediate BURNING Uncoded 09/16/24 12:48 SENSATION Home Medications ?Medication ?Instructions ?Recorded ?Confirmed ?Last Taken ?Type blood sugar diagnostic (True 08/21/24 09/04/24 Unknown History Metrix Glucose Test Strip) blood-glucose meter (True Metrix 08/21/24 09/04/24 Unknown History Glucose Meter) lancets 28 gauge (Easy Touch 08/21/24 09/04/24 Unknown History Safety Lancets) Exam Height,Weight and Vital Signs: Height 5 ft 6 in Weight 76.657 kg Assessment and Plan Assessment Anesthesia Assessment: Chart Reviewed Documented by User: Lana Banks MD 09/18/24 08:21 PMFSH Past Medical History Medical History Submandibular lymphadenopathy Diabetes mellitus History of depression Asthma Family History Family History Father Dementia Diabetes FH: HTN (hypertension) Other Mental health disorder Family history of problems with anesthesia: No Surgical History Surgical History H/O elbow surgery H/O Spinal surgery History of Problems with Anesthesia: No Social History Social History Housing: House Are you a primary critical care nurse to a significant other at home: No Do you presently have visiting nurse or other home services: No Alcohol intake: current Alcohol intake frequency: a few times a week Patient Tobacco Use Status: Former Tobacco user e-Cigarette/Vaping Use: Never Used Second Hand Smoke Exposure: Yes Use of substances other than those prescribed or required for medical reasons: No Have you been hit, kicked, punched, or otherwise hurt by someone within the past year? 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 [employer] Sexual orientation: Straight/Heterosexual Gender identity: Female Cognitive needs: No Hearing needs: No Vision needs: Yes (Glasses) Meds Allergies Allergy/AdvReac Type Severity Reaction Status Date / Time metformin AdvReac Intermediate lower Verified 09/18/24 07:27 blood sugar SEDATIVE MED AdvReac Intermediate BURNING Uncoded 09/16/24 12:48 SENSATION Home Medications ?Medication ?Instructions ?Recorded ?Confirmed ?Last Taken ?Type blood sugar diagnostic (True 08/21/24 09/04/24 Unknown History Metrix Glucose Test Strip) blood-glucose meter (True Metrix 08/21/24 09/04/24 Unknown History Glucose Meter) lancets 28 gauge (Easy Touch 08/21/24 09/04/24 Unknown History Safety Lancets) Exam Airway Mallampati Class: II TM Dist: >3cm Neck ROM: Full Heart: rrr Lungs: cta Assessment and Plan Assessment Anesthesia Assessment: Anesthesia Plan Discussed Final Anesthetic Review Family History of Problems with Anesthesia: No History of Problems with Anesthesia: No NPO: Yes ASA Class: II Final Preanesthetic Review: No Changes in Pt Med Stat, Meds/Allgs Chart Reviewed, Consent Obtained/Reviewed and Anes Risks/Benef Reviewed Patient Risk: Low Procedure Risk: Low Anesthetic Plan Anesthetic Plan: MAC: Disposition: Standard PACU
[2024-09-18 07:40] VITALS: BP 107/73; PULSE 72; RESP 17; TEMP 36.8; O2SAT 100; BMI 26.3
--- NOTE | 2024-09-18 07:47 | P.HPSUR_ITS ---
Pre-Procedural Eval Section A - 24 Hr Update-Section A only Date of Service: 09/18/24 Section B - Complete if H&P > 30 days Chief Complaint: screening Details of Present Illness: History of depression Asthma Surgical History H/O elbow surgery H/O Spinal surgery Present Medications: see Short Stay Collaborative assessment Allergies: Allergies Allergy/AdvReac Type Severity Reaction Status Date / Time metformin AdvReac Intermediate lower Verified 09/04/24 11:35 blood sugar SEDATIVE MED AdvReac Intermediate BURNING Uncoded 09/16/24 12:48 SENSATION Review of Systems Review of Systems Comment: Ten point ROS negative Exam Exam Comment: Gen appear: No acute distress HEENT: no icterus Chest: No overt resp distress Abd: soft, nontender, nondistended Psych: Stable affect, answering questions appropriately Neuro: A/Ox3 noted to move all extremities spontaneously Ext: no peripheral edema Plan Diagnosis/Plan: Unchanged I have reviewed the history and physical and performed a pertinent physical examination on my patient. No changes have occurred unless specified. Time Spent With Patient Time: Total time managing care of this patient today ____ minutes.
[2024-09-18] MEDS: Lactated Ringers 1,000 ML 100 ML IVCONT (07:51)
--- NOTE | 2024-09-18 08:22 | P.OPN-COLO_ITS ---
Colonoscopy Operative Note Operative Note Date of Service: 09/18/24 Narrative: Procedure: Colonoscopy Indication: Screening Endoscopist: Jo Bonilla MD Anesthesia Provider: Mary Cuellar CRNA Anesthesia type: MAC Instrument: Olympus [id number]-[id number] Consent: Indication, risks vs benefits, and alternatives were discussed with the patient who gave written informed consent to proceed. EKG, pulse, pulse oximetry and blood pressure were monitored throughout the procedure. Please see anesthesia flowsheet. Procedure: The patient was brought to the procedure room and placed in the left lateral decubitus position. IV medications were administered by the anesthesia provider in attendance. A digital rectal exam was performed which was normal. A distal attachment cap was affixed to the tip of the colonoscope which was then inserted through the anus and advanced through the colon to the cecum at 75 cm,and terminal ileum. Appendiceal orifice and ileocecal valve were identified. Mucosa was carefully examined under high definition white light as the instrument was slowly withdrawn in a retrograde panoramic fashion. Retroflexion was performed in rectum. The procedure was not difficult. There were no immediate obvious complications. The quality of the prep was BBPS: 3+2+2 = adequate Withdrawal time 11 minutes. Limitations: No limitations. Findings: Mucosa: Normal to cecum and terminal ileum. Protruding lesions: * Large internal hemorrhoids without stigmata of recent bleeding. Excavated lesions: * Small diverticulosis of whole, predominantly right side colon. Impression: 1. Normal colon mucosa 2. Diverticulosis 3. Internal hemorrhoids Recommendations: - Increase fiber intake - Repeat colonoscopy in 10 years for asymptomatic colorectal ca screening - Follow up with GI as needed
[2024-09-18 09:11] VITALS: BP 88/58; PULSE 74; RESP 20; TEMP 36.5; O2SAT 100
[2024-09-18 09:25] VITALS: BP 90/57; BP 97/55; PULSE 67; PULSE 70; RESP 20; O2SAT 100
[2024-09-18 09:30] VITALS: BP 104/70; PULSE 67; RESP 20; TEMP 36.7; O2SAT 100
== END 2024-09-18 09:49 | disposition home or self-care (01) ==
PROVIDERS: PCP Internal Medicine; Visit Provider Internal Medicine
PROC: 0DJD8ZZ Inspection of Lower Intestinal Tract, Via Natural or Artificial Opening Endoscopic (ICD-10-PCS; CPT 45378; principal; 2024-09-18 08:20)
DX: Z12.11 Encounter for screening for malignant neoplasm of colon (principal); K57.30 Diverticulosis of large intestine without perforation or abscess without bleeding; K64.8 Other hemorrhoids; E11.9 Type 2 diabetes mellitus without complications; J45.909 Unspecified asthma, uncomplicated; Z98.890 Other specified postprocedural states; Z87.891 Personal history of nicotine dependence; Z88.8 Allergy status to other drugs, medicaments and biological substances
CPT/HCPCS: 45378; J2003; J2704

== ENCOUNTER → 2024-09-18 06:35 | Outpatient (BNV) | payer BC, SELFPAY | PROVIDERS: PCP Internal Medicine; Visit Provider Internal Medicine | DX: Z12.11 Encounter for screening for malignant neoplasm of colon (principal); K64.8 Other hemorrhoids; K57.90 Diverticulosis of intestine, part unspecified, without perforation or abscess without bleeding | CPT/HCPCS: 45378 ==

== ENCOUNTER 2024-10-08 07:20 | Day surgery (SDC) | payer BC, SELFPAY ==
--- OUTSIDE RECORDS SUMMARY | 2024-09-24 18:07 | XMS_ITS ---
Author Organization Jett Riddle III, MD Address [address] [place] [address] [place] [address] Care Team Providers Care Last Cleaner Name Role Phone Rui Lemos MD Primary Care Provider Jett Oakes Unavailable [phone] Allergies Allergen (clinical drug ingredient) Drug/Non Drug [...] Date Provider Diagnosis Jett Riddle III, MD [address] [place] [address] [place] [address] 06/07/2023 Jett Riddle Cervical adenopathy R59.0 ; [...] Months, Reason: ov Progress Notes * MARGOT COLLAODEDOB:1970 (52 yo F)Acc No.[id number]:06/07/2023 Progress Notes Patient:?COLEEN COLLADO Provider:?Jett Riddle MD :1970???Age:52 Y???Sex:Female D ate:06/07/2023 Address:[address] [place] [address] Pcp:Rui Lemos MD Subjective: * Chief Complaints: [...] Tobacco Non-User?Ex-cigarette smoker ???She was born in [facility]. She has lived in the [facility] for 33 years. She has been to [place] for 22 years. They have 1 daughter Lulu who is 25 and healthy and well. There are no grandchildren. 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 She has no pentecostal objection to blood transfusion. She smokes one [...] Riddle MD Date:?05/23 Generated for Ad toth/Roman/eTransmitting on:?09/24/2024 06:07 PM EST History and Physical Notes * HPI (History of Present Illness) Category Sub-Category Detail Notes COVID-19 Screening Questions Have you had any new onset fever, chills, cough, congestion, sore throat, shortness of breath, muscle aches?: No Have you been exposed to the virus withi n the last 10 days?: No Have you travelled internationally in [facility] last 10 days?: No Have you been [...]
--- OUTSIDE RECORDS SUMMARY | 2024-09-24 18:07 | XMS_ITS ---
Author Organization Jett Riddle III, MD Address [address] [place] [address] [place] [address] Care Team Providers Care Ecologist Name Role Phone Rui Lemos MD Primary Care Provider Jett Oakes Unavailable [phone] Allergies Allergen (clinical drug ingredient) Drug/Non Drug [...] Problem Status W/U Status Risk Notes Problem [id number] Adenopathy (R59.9) Active confirmed The lymph node [...] Date Provider Diagnosis Jett Riddle III, MD [address] [place] [address] DR [place]DIED[place], COLEEN [address] 08/06/2023 Jett Riddle Former smoker Z87.89 1 [...] Notes * WALLY COLLADOOB:1970 (52 yo F)Acc No.[id number]:08/06/2023 Progress Notes Patient:?COLEEN COLLADO Provider:?Jett Riddle MD :1970???Age:52 Y???Sex:Female D ate:08/06/2023 Address:[address] [place], [place] [id number] Pcp:Rui Lemos MD Subjective: * Chief Complaints: [...] Tobacco Non-User?Ex-cigarette smoker ???She was born in [facility]. She has lived in the [facility] for 33 years. She has been to [place] for 22 years. They have 1 daughter Lulu who is 25 and healthy and well. There are no grandchildren. 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 She has no uatsdin objection to blood transfusion. She smokes one [...] Riddle MD Date:?07/23 Generated for Printi navneet/Roman/eTransmitting on:?09/24/2024 06:07 PM EST History and Physical Notes * HPI (History of Present Illness) Category Sub-Category Detail Notes COVID-19 Screening Questions Have you had any new onset fever, chills, cough, congestion, sore throat, shortness of breath, muscle aches?: No Have you been exposed to the virus withi n the last 10 days?: No Have you travelled internationally in [facility] last 10 days?: No Have you [...]
--- OUTSIDE RECORDS SUMMARY | 2024-09-24 18:08 | XMS_ITS | Patient Health Record ---
Author Organization Jett Riddle III, MD Address [address] [place] [address] [place] [address] Care Team Providers Care Wool Broker Name Role Phone Rui Lemos MD Primary Care Provider Jett Oakes Unavailable [phone] Allergies Allergen (clinical drug ingredient) Drug/Non Drug [...] Problem Status W/U Status Risk Notes Problem 5545513 Former smoker (Z87.891) Active confirmed She has a plan to prevent relapse and times of stress and illness. Problem 898068985 Overweight (E66.3) Active confirmed Her body mass i ndex is 27. We discussed her diet and nutrition. We made a plan to lose weight at a rate of one half damien a pound per week. Problem 70927494 Adenopathy (R59.9) Active confirmed The lymph node will be observed at short intervals. Comprehensive bloood work was ordered. If there is progression in the lymph node. It will be excised and study further. Problem 138641272 Cervical adenopathy (R59.0) Active confirmed The lymph node in the upper left neck is Unchanged It is mobile and nontender. She will be observed. The differential diagnosis remains a chronic lymphoproliferative process versus reactive lymph node. Problem 326855514 History of spinal stenosis (Z87.39) Active confirmed She has had a laminectomy in the past. Her pain is much improved but still present intermittently. Plan Of Treatment Pending Test Test Name Order Date PROFILE, RANDOM (COMPREHENSIVE METABOLIC ) 03/14/2023 PROFILE, RANDOM (COMPREHENSIVE METABOLIC ) 08/06/2023 PROFILE, RANDOM (COMPREHENSIVE METABOLIC ) 06/27/2022 GGT 06/27/2022 LDH 06/27/2022 LDH 12/14/2022 LDH 08/06/2023 CBC w DIFF 03/14/2023 CBC w DIFF 06/27/2022 CBC w DIFF 12/14/2022 SED RATE (ESR) 06/27/2022 SED RATE (ESR) [...] Insured Coverage Start Date Coverage End Date [facility] [address] [place], [place] [id number] [phone] [id number] COLEEN COLLADO Self - patient is the insured Medical (General) History Medical History History ICD Code Cervical adenopathy Overweight Childhood meningitis Extraction maxillary molar Negative test for tuberculosis Tobacco dependence Spinal stenosis Surgical History Surgery Date(Month/Year) Laminectomy lumbar spine for spinal sten osis 2005 Surgical procedure right elbow 2017
--- OUTSIDE RECORDS SUMMARY | 2024-09-24 18:08 | XMS_ITS ---
Author Organization Jett Riddle III, MD Address [address] [address] [place] [address] Care Team Providers Care Health Promotion Specialist Name Role Phone Rui Lemos MD Primary Care Provider Jett Oakes [facility] [phone] Allergies Allergen (clinical drug ingredient) Drug/Non Drug [...] Date Provider Diagnosis Jett Riddle III, MD [address] [place] [address] [place] [address] 11/05/2023 Jett Riddle Plan Of Treatment Medication Medication Name Sig Start Date Stop Date Notes Ibuprofen 400 MG TAKE 1 TABLET BY JUANA TH EVERY FOUR HOURS NEEDED FOR PAIN Oral FLUoxetine HCl 10 MG TAKE 1 CAPSULE BY M OUTH EVERY DAY Oral Progress Notes * MARGOT COLLADOEDOB:1970 (53 yo F)Acc No.[id number]:11/05/2023 Progress Notes Patient:?COLEEN COLLADO Provider:?Jett Riddle MD :1970???Age:53 Y???Sex:Female D ate:11/05/2023 Address:[address] [place] [address] Pcp:Rui Lemos MD Subjective: * Chief Complaints: [...] Tobacco Non-User?Ex-cigarette smoker ???She was born in [facility]. She has lived in the [facility] for 33 years. She has been to [place] for 22 years. They have 1 daughter Lulu who is 25 and healthy and well. There are no grandchildren. 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 She has no mandaeism objection to blood transfusion. She smokes one [...] Riddle MD Date:?10/21 Generated for Printi ng/Roman/eTransmitting on:?09/24/2024 06:07 PM EST History and Physical Notes * HPI (History of Present Illness) Category Sub-Category Detail Notes COVID-19 Screening Questions Have you had any new onset fever, chills, cough, congestion, sore throat, shortness of breath, muscle aches?: No Have you been exposed to the virus withi n the last 10 days?: No Have you travelled internationally in [facility] last 10 days?: No Have you been [...]
[2024-10-06 08:41] VITALS: BMI 27.0
--- NOTE | 2024-10-07 09:22 | HO.ANESPROP2 ---
Documented by User: Aixa Cervantes NP 10/07/24 09:28 HPI - Anesthesia Eval Consult details Narrative: 53yo F for Left Excision Lymph Node submandibular Allergy: sedative med causing burning sensation ... s/p colo 08/2024 with TIVA (prop and lido) PMFSH Active Problems Active Problems: All Active Problems Submandibular lymphadenopathy (Acute) Diabetes mellitus (Acute) Upper respiratory tract infection (Acute) Well woman exam with routine gynecological exam (Acute) Past Medical History Medical History Submandibular lymphadenopathy Diabetes mellitus History of depression Asthma Family History Family History Father Dementia Diabetes FH: HTN (hypertension) Other Mental health disorder Family history of problems with anesthesia: No Surgical History Surgical History H/O elbow surgery H/O Spinal surgery History of Problems with Anesthesia: No Social History Social History Housing: House Are you a primary critical care technician to a significant other at home: No Do you presently have visiting nurse or other home services: No Alcohol intake: current Alcohol intake frequency: holidays/special occasions only Patient Tobacco Use Status: Former Tobacco user e-Cigarette/Vaping Use: Never Used Second Hand Smoke Exposure: Yes Use of substances other than those prescribed or required for medical reasons: No Have you been hit, kicked, punched, or otherwise hurt by someone within the past year? 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 [employer] Sexual orientation: Straight/Heterosexual Gender identity: Female Cognitive needs: No Hearing needs: No Vision needs: Yes (Glasses) Meds Allergies Allergy/AdvReac Type Severity Reaction Status Date / Time metformin AdvReac Intermediate lower Verified 10/08/24 07:52 blood sugar SEDATIVE MED AdvReac Intermediate BURNING Uncoded 10/08/24 07:52 SENSATION Home Medications ?Medication ?Instructions ?Recorded ?Confirmed ?Last Taken ?Type blood sugar diagnostic (True 08/21/24 09/04/24 Unknown History Metrix Glucose Test Strip) blood-glucose meter (True Metrix 08/21/24 09/04/24 Unknown History Glucose Meter) lancets 28 gauge (Easy Touch 08/21/24 09/04/24 Unknown History Safety Lancets) Exam Height,Weight and Vital Signs: Height 5 ft 6 in Weight 75.75 kg Pertinent Lab Results Pertinent Lab Results: Laboratory Tests 04/08/24 06/28/24 07:55 10:59 WBC 4.4 L Hgb 13.1 Hct 39.9 Plt Count 269 Sodium 141 Potassium 4.5 Chloride 108 Carbon Dioxide 27 BUN 17 H Creatinine 0.80 Assessment and Plan Assessment Anesthesia Assessment: Chart Reviewed Final Anesthetic Review Family History of Problems with Anesthesia: No History of Problems with Anesthesia: No Documented by User: Jona Gonsalez MD 10/08/24 09:01 [facility] Past Medical History Medical History Submandibular lymphadenopathy Diabetes mellitus History of depression Asthma Family History Family History Father Dementia Diabetes FH: HTN (hypertension) Other Mental health disorder Surgical History Surgical History H/O elbow surgery H/O Spinal surgery Social History Social History Housing: House Are you a primary critical care technician to a significant other at home: No Do you presently have visiting nurse or other home services: No Alcohol intake: current Alcohol intake frequency: holidays/special occasions only Patient Tobacco Use Status: Former Tobacco user e-Cigarette/Vaping Use: Never Used Second Hand Smoke Exposure: Yes Use of substances other than those prescribed or required for medical reasons: No Have you been hit, kicked, punched, or otherwise hurt by someone within the past year? 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 [employer] Sexual orientation: Straight/Heterosexual Gender identity: Female Cognitive needs: No Hearing needs: No Vision needs: Yes (Glasses) Meds Allergies Allergy/AdvReac Type Severity Reaction Status Date / Time metformin AdvReac Intermediate lower Verified 10/08/24 07:52 blood sugar SEDATIVE MED AdvReac Intermediate BURNING Uncoded 10/08/24 07:52 SENSATION Home Medications ?Medication ?Instructions ?Recorded ?Confirmed ?Last Taken ?Type blood sugar diagnostic (True 08/21/24 09/04/24 Unknown History Metrix Glucose Test Strip) blood-glucose meter (True Metrix 08/21/24 09/04/24 Unknown History Glucose Meter) lancets 28 gauge (Easy Touch 08/21/24 09/04/24 Unknown History Safety Lancets) Exam Airway Mallampati Class: I TM Dist: <=3cm Neck ROM: Full Loose/Missing/Broken Teeth: No Heart: ok Lungs: ok Assessment and Plan Assessment Anesthesia Assessment: Anesthesia Plan Discussed Final Anesthetic Review NPO: Yes ASA Class: II Final Preanesthetic Review: No Changes in Pt Med Stat, Meds/Allgs Chart Reviewed, Consent Obtained/Reviewed and Anes Risks/Benef Reviewed Patient Risk: Low Procedure Risk: Intermediate Anesthetic Plan Anesthetic Plan: GA and Agree w/ Assess. and Plan Disposition: Standard PACU
[2024-10-08] VITALS (7 sets, daily range): BP systolic 88–108; BP diastolic 54–74; PULSE 55–75; RESP 14–16; TEMP 36.1–36.6; O2SAT 99–100; BMI 26.0
[2024-10-08 08:26] LABS: Glucose, Whole Blood 104 mg/dL (60-115)
[2024-10-08] MEDS: Lactated Ringers 1,000 ML 100 ML IVCONT (08:26)
--- NOTE | 2024-10-08 08:43 | MHC.SHP ---
Pre-Procedural Eval Section A - 24 Hr Update-Section A only Date of Service: 10/08/24 The patient is an INPATIENT: No Changes since office visit: Yes Patient answered all questions; No Cold of Flu in the past 2 weeks, No New Medical Problems and No Changes in Medication The patient has been examined within 24 hours of the surgical procedure. The History & Physical has been completed within 30 days and I have reviewed it.: No Section B - Complete if H&P > 30 days Chief Complaint: Localized enlarged lymph nodes left submandibular Details of Present Illness: No change in her symptoms, left submandibular region Relevant Family History (Specify if Yes): No Relevant Social History: None Present Medications: see Short Stay Collaborative assessment Medical History: No relevant PMH History of Previous Operations: No relevant previous surgery Allergies: Allergies Allergy/AdvReac Type Severity Reaction Status Date / Time metformin AdvReac Intermediate lower Verified 10/08/24 07:52 blood sugar SEDATIVE MED AdvReac Intermediate BURNING Uncoded 10/08/24 07:52 SENSATION Review of Systems Sugical H&P ROS: Negative: Constitution, Cardiovascular, Respiratory, Neurological, Hem-Onc, Allergic/Immunologic, Gastrointestinal, Musculoskeletal, Integumentary and Eyes/Ears/Nose/Throat Exam Surgical H&P Exam: Normal: Heart, Normal: Lungs, Normal: Extremities, Normal: Abdomen and Normal: Skin and Significant Findings: HEENT (Enlarged node left submandibular region) Plan Diagnosis/Plan: Unchanged I have reviewed the history and physical and performed a pertinent physical examination on my patient. No changes have occurred unless specified. Time Spent With Patient Time: Total time managing care of this patient today ____ minutes.
[2024-10-08] MEDS: ceFAZolin Sodium/Dextrose,Iso 2 GM/50 ML PIGGYBACK IV (09:08)
--- NOTE | 2024-10-08 09:46 | W.PM.OPN ---
Operative Note Operative Note Date of Service: 10/08/24 Narrative: Preoperative diagnosis: Left submandibular lymphadenopathy Postoperative diagnosis: Same Procedure: Excision of left submandibular lymph node Surgeon: Cristhian San MD Risk Control Product Liability Director: Yvette Puri PA-C; DAMIAN Forte Anesthesia: General LMA Indications for procedure: 53-year-old female patient presenting with an enlarging lymph node of the left neck in the submandibular region. She previously underwent an ultrasound-guided core biopsy which revealed evidence of reactive changes. The node has continued to enlarge therefore she presents today for excision of this enlarged lymph node Operative findings: Large submandibular lymph node located just below the platysmas Specimen: Lymph node, left submandibular Estimated blood loss: 2 mL Complications: None Procedure details: Patient was brought to the OR and placed in a supine position. After administering general anesthesia the patient's neck was prepped with ChloraPrep and draped in a sterile fashion. A surgical time-out was called the consent confirmed. Patient received preoperative antibiotics and Venodyne boots were in place. Local anesthesia was infiltrated over the node parallel to the angle of the mandible. An incision was then made with a scalpel and carried out through subcutaneous tissue. Electrocautery was then used to continue past the platysmas muscle. Lymph node was then identified. Combination of sharp and blunt dissection and electrocautery dissection was used to dissect the lymph node from the surrounding tissue. Hemostasis was assured using electrocautery. The node was removed and sent to pathology for further examination. Wounds were irrigated with saline solution and suctioned dry. Wounds were again checked for hemostasis. Platysmas muscle was then reapproximated using interrupted 3-0 Polysorb sutures. Dermis was reapproximated using interrupted 3-0 Polysorb sutures and skin was closed using a running subcuticular 4-0 Polysorb suture. Steri-Strips, 2 x 2 gauze and Tegaderm were then applied. The patient tolerated the procedure well. Sponge, instrument, and needle counts reported as correct. The patient was transferred to PACU in stable condition.
== END 2024-10-08 11:25 | disposition home or self-care (01) ==
PROVIDERS: PCP Internal Medicine; Visit Provider Surgery
PROC: (CPT 38500; principal; 2024-10-08 09:00)
DX: R59.0 Localized enlarged lymph nodes (principal); E11.9 Type 2 diabetes mellitus without complications; J45.909 Unspecified asthma, uncomplicated; F32.A Depression, unspecified; Z79.84 Long term (current) use of oral hypoglycemic drugs; Z88.8 Allergy status to other drugs, medicaments and biological substances; Z87.891 Personal history of nicotine dependence; Z98.890 Other specified postprocedural states
CPT/HCPCS: 38510; 82947; 88184; 88185; 88305; J0690; J1885; J2003; J2405; J2704; J2795; J3010

== ENCOUNTER → 2024-10-08 07:20 | Outpatient (BNV) | payer BC, SELFPAY | PROVIDERS: PCP Internal Medicine; Visit Provider Surgery | DX: R59.0 Localized enlarged lymph nodes (principal) | CPT/HCPCS: 38510 ==

== ENCOUNTER 2024-10-17 10:16 | Outpatient (AMB) | payer BC, SELFPAY ==
--- NOTE | 2024-10-17 10:27 | A.OFFVIS_ITS ---
Vital Signs 3 10/17/24 10:37 Height 5 ft 6 in Weight 164 lb BMI 26.5 BP 116/86 Blood Pressure Location Lt brachial Position Sitting Pulse 82 Intake Visit Reasons: S/P excision lymph node Lt submandibular Intake Note: Patient is seen in office for post op assessment post excision of left submandibular lymph node. Pt c/o: denies any concerns surgery:10/08/24 College [employer] University Registrar Required: No Accompanied by: Family/Other Allergies metformin Adverse Reaction (Intermediate, Verified 10/17/24 10:37) lower blood sugar SEDATIVE MED Adverse Reaction (Intermediate, Uncoded 10/17/24 10:37) BURNING SENSATION HPI Comments Details: 53-year-old female patient presenting for evaluation of an enlarged submandibular lymph node. This has been present for several years and waxes and wanes in size. She occasionally has some discomfort when the lesion is palpated. She also reports occasional sore throat prior to enlargement of the node. She previously underwent an ultrasound-guided core biopsy in 2022 which revealed evidence of a reactive lymph node. Note was made that an excisional biopsy was recommended if the lymph node persisted to be enlarged. She denies fever or chills, nausea or vomiting. She denies any other enlarged lymph nodes. She underwent left submandibular lymph node excision on 10/08/2024. Pathology reactive follicular and paracortical hyperplasia. The patient tolerated the procedure well and denies any ongoing symptoms. Does note some swelling in the region of the chin. [facility] Medical History Submandibular lymphadenopathy Diabetes mellitus History of depression Asthma Surgical History H/O lymph node excision (10/08/24) H/O elbow surgery H/O Spinal surgery Family History Father Dementia Diabetes FH: HTN (hypertension) Other Mental health disorder Social History Housing: House Are you a primary progressive care unit registered nurse to a significant other at home: No Do you presently have visiting nurse or other home services: No Alcohol intake: current Alcohol intake frequency: holidays/special occasions only Patient Tobacco Use Status: Former Tobacco user e-Cigarette/Vaping Use: Never Used Second Hand Smoke Exposure: Yes service: No Current occupational status: employed 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 Incision left neck Resp Effort & Inspection: normal respiratory effort Skin Other: Warm, dry, no rash Neuro General: patient oriented x3 Assessment & Plan Assessment & Plan (1) Submandibular lymphadenopathy: Code(s): R59.0 - Localized enlarged lymph nodes Category: Medical Plan Patient returns 1 week following excision of a left submandibular enlarged lymph node. She tolerated the procedure well. Pathology revealed reactive follicular and paracortical hyperplasia. A copy of the report was provided to the patient. She will follow up with Dr. Riddle for further evaluation. She should follow up as needed. Coding Level of Care Code Global (62935) Diagnoses Submandibular lymphadenopathy R59.0
[2024-10-17 10:37] VITALS: BP 116/86; PULSE 82; BMI 26.5
== END 2024-10-17 10:55 | disposition home or self-care (01) ==
LOC: HO.HGS 10:17
PROVIDERS: PCP Internal Medicine; Visit Provider Surgery
DX: R59.0 Localized enlarged lymph nodes (principal)
CPT/HCPCS: 99024

== ENCOUNTER → 2024-10-17 10:16 | Outpatient (BNVA) | payer BC, SELFPAY | PROVIDERS: PCP Internal Medicine; Visit Provider Surgery ==

== ENCOUNTER 2024-11-11 08:36 | Outpatient (REF) | payer BC, SELFPAY ==
--- OUTSIDE RECORDS SUMMARY | 2024-11-11 08:56 | XMS_ITS ---
Author Organization Jett Riddle III, MD Address [address] [place] [address] [place] [address] Care Team Providers Care Cover Making Machine Operator Name Role Phone Rui Lemos MD Primary Care Provider Jett Oakes Unavailable [phone] Allergies Allergen (clinical drug ingredient) Drug/Non Drug [...] Problem Status W/U Status Risk Notes Problem 17148542 Adenopathy (R59.9) Active confirmed The lymph node [...] Date Provider Diagnosis Jett Riddle III, MD [address] [place] [address] DR RINALDIEDWARD, COLEEN [address] 08/06/2023 Jett Riddle Former smoker Z87.89 1 [...] Notes * WALLY COLLADOOB:1970 (52 yo F)Acc No.[id number]:08/06/2023 Progress Notes Patient:?COLEEN COLLADO Provider:?Jett Riddle MD :1970???Age:52 Y???Sex:Female D ate:08/06/2023 Address:[address] [place], [place] [id number] Pcp:Rui Lemos MD Subjective: * Chief Complaints: [...] [facility]. She has lived in the [facility] for 33 years. She has been to [place] for 22 years. They have 1 daughter Lulu who is 25 and healthy and well. There are no grandchildren. 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 She has no samaritan objection to blood transfusion. She smokes one [...] Riddle MD Date:?07/23 Generated for Printi ng/Roman/eTransmitting on:?11/11/2024 08:56 AM EDT History and Physical Notes * HPI (History [...]
--- OUTSIDE RECORDS SUMMARY | 2024-11-11 08:56 | XMS_ITS ---
Author Organization Jett Riddle III, MD Address [address] [place] [address] [place] [address] Care Team Providers Care Manager Instrumentation Name Role Phone Rui Lemos MD Primary Care Provider Jett Oakes Unavailable [phone] Allergies Allergen (clinical drug ingredient) Drug/Non Drug [...] Date Provider Diagnosis Jett Riddle III, MD [address] [place] [address] [place] [address] 06/07/2023 Jett Riddle Cervical adenopathy R59.0 ; [...] Notes * MARGOT COLLADOEDOB:1970 (52 yo F)Acc No.[id number]:06/07/2023 Progress Notes Patient:?COLEEN COLLADO Provider:?Jett Riddle MD :1970???Age:52 Y???Sex:Female D ate:06/07/2023 Address:[address] [place] [address] Pcp:Rui Lemos MD Subjective: * Chief Complaints: [...] Tobacco Non-User?Ex-cigarette smoker ???She was born in [facility]. She has lived in the [facility] for 33 years. She has been to [place] for 22 years. They have 1 daughter Lulu who is 25 and healthy and well. There are no grandchildren. 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 She has no restorationism objection to blood transfusion. She smokes one [...] * Provider:?Jett Riddle MD Date:?05/23 Generated for Elisai navneet/Roman/eTransmitting on:?11/11/2024 08:56 AM EDT History and Physical [...]
--- OUTSIDE RECORDS SUMMARY | 2024-11-11 08:57 | XMS_ITS ---
Author Organization Jett Riddle III, MD Address [address] [place] [address] [place] [address] Care Team Providers Care Tow Car Driver Name Role Phone Rui Lemos MD Primary Care Provider Jett Oakes [facility] [phone] Allergies Allergen (clinical drug ingredient) Drug/Non Drug [...] Date Provider Diagnosis Jett Riddle III, MD [address] [place] [address] [place] [address] 11/05/2023 Jett Riddle Plan Of Treatment Medication Medication Name Sig Start Date Stop Date Notes Ibuprofen 400 MG TAKE 1 TABLET BY JUANA TH EVERY FOUR HOURS NEEDED FOR PAIN Oral FLUoxetine HCl 10 MG TAKE 1 CAPSULE BY M OUTH EVERY DAY Oral Progress Notes * MARGOT COLLADOEDOB:1970 (54 yo F)Acc No.[id number]:11/05/2023 Progress Notes Patient:?COLEEN COLLADO Provider:?Jett Riddle MD :1970???Age:53 Y???Sex:Female D ate:11/05/2023 Address:[address] [place] [address] Pcp:Rui Lemos MD Subjective: * Chief Complaints: [...] Tobacco Non-User?Ex-cigarette smoker ???She was born in [facility]. She has lived in the [facility] for 33 years. She has been to [place] for 22 years. They have 1 daughter Lulu who is 25 and healthy and well. There are no grandchildren. 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 She has no yarsani objection to blood transfusion. She smokes one [...] Riddle MD Date:?10/21 Generated for Printi ng/Roman/eTransmitting on:?11/11/2024 08:57 AM EDT History and Physical Notes * HPI (History of Present Illness) Category Sub-Category Detail Notes COVID-19 Screening Questions Have you had any new onset fever, chills, cough, congestion, sore throat, shortness of breath, muscle aches?: No Have you been exposed to the virus withi n the last 10 days?: No Have you travelled internationally in [facility] last 10 days?: No Have you been [...]
--- OUTSIDE RECORDS SUMMARY | 2024-11-11 08:57 | XMS_ITS | Patient Health Record ---
Author Organization Jett Riddle III, MD Address [address] [place] [address] LINDA Samuel [facility] [place] [address] Care Team Providers Care Final Application Reviewer Name Role Phone Rui Lemos MD Primary Care Provider Jett Oakes Unavailable [phone] Allergies Allergen (clinical drug ingredient) Drug/Non Drug [...] Problem Status W/U Status Risk Notes Problem 7296768 Former smoker (Z87.891) Active confirmed She has a plan to prevent relapse and times of stress and illness. Problem 119366729 Overweight (E66.3) Active confirmed Her body mass i ndex is 27. We discussed her diet and nutrition. We made a plan to lose weight at a rate of one half damien a pound per week. Problem 07878313 Adenopathy (R59.9) Active confirmed The lymph node will be observed at short intervals. Comprehensive bloood work was ordered. If there is progression in the lymph node. It will be excised and study further. Problem 316220929 Cervical adenopathy (R59.0) Active confirmed The lymph node in the upper left neck is Unchanged It is mobile and nontender. She will be observed. The differential diagnosis remains a chronic lymphoproliferative process versus reactive lymph node. Problem 238473341 History of spinal stenosis (Z87.39) Active confirmed She has had a laminectomy in the past. Her pain is much improved but still present intermittently. Plan Of Treatment Pending Test Test Name Order Date PROFILE, RANDOM (COMPREHENSIVE METABOLIC ) 08/06/2023 PROFILE, RANDOM (COMPREHENSIVE METABOLIC ) 06/27/2022 PROFILE, RANDOM (COMPREHENSIVE METABOLIC ) 03/14/2023 GGT 06/27/2022 LDH 08/06/2023 LDH 06/27/2022 LDH 12/14/2022 CBC w DIFF 12/14/2022 CBC w DIFF 03/14/2023 CBC w DIFF 06/27/2022 SED RATE (ESR) 12/14/2022 SED RATE (ESR) 08/06/2023 SED RATE (ESR) 06/27/2022 MONO TEST (HETEROPHILE AB) 06/27/2022 BETA-2 MICROGLOBULIN, SERUM 06/27/2022 US BIOPSY NEEDLE GUIDE 06/27/2022 PARATHYROID HORMONE INTACT 03/14/2023 CBC WITH AUTO DIFF 08/06/2023 US biopsy lymph node 06/27/2022 Insurance Providers Payer Name Payer Address Payer Phone Subscriber Number Group Number Insured Name Patient Relationship to Insured Coverage Start Date Coverage End Date [facility] [address] [place], [place] [id number] COLEEN COLLADO Self - patient is the insured Medical (General) History Medical History History ICD Code Cervical adenopathy Overweight Childhood meningitis Extraction maxillary molar Negative test for tuberculosis Tobacco dependence Spinal stenosis Surgical History Surgery Date(Month/Year) Laminectomy lumbar spine for spinal sten osis 2005 Surgical procedure right elbow 2017
[2024-11-11 09:04] LABS: Hematocrit 39.8 % (37.0-47.0); Hemoglobin 12.9 g/dl (12.0-16.0); Mean Corpuscular HGB Conc 32.4 g/dl (31.0-35.0); Mean Corpuscular Hemoglobin 28.7 pg (27.0-33.0); Mean Corpuscular Volume 88.4 fL (80.0-98.0); Mean Platelet Volume 9.9 fL (9.4-12.3); Platelet Count 276 X10*3/uL (160-400); Red Cell Distribution Width 12.9 % (11.0-16.0); White Blood Count 5.7 X10*3/uL (4.8-10.8)
[2024-11-11 09:12] LABS: Estimated Average Glucose 120 mg/dL; Hemoglobin A1C 136.0057 umol/L; Hemoglobin A1c % 5.8 % (<6.0); Total Hemoglobin (HGBA1C) 3401.2681 umol/L
[2024-11-11 09:44] LABS: Appearance Urine Clear; Color Urine Yellow; Glucose Urine UA Negative (Negative); Leukocyte Esterase Urine Negative (Negative); Nitrite Urine Negative (Negative); PH 6.5 (5.0-9.0); Specific Gravity - Urine 1.015 (1.005-1.025); Urine Blood Negative (Negative); Urine Ketones Negative (Negative); Urine Protein Negative (Neg-Trace)
[2024-11-11 09:50] LABS: Albumin Level 4.6 g/dL (3.5-5.0); Alkaline Phosphatase 80 U/L (39-117); Anion Gap 11 (12-20); Aspartate Amino Transferase 36 U/L (5-31); Bilirubin Direct 0.1 mg/dL (0.0-0.5); Bilirubin Total 0.5 mg/dL (0.0-1.0); Blood Urea Nitrogen 16 mg/dL (9-16); Calcium 9.7 mg/dL (8.4-10.2); Carbon Dioxide 28 mmol/L (22-29); Chloride 103 mmol/L (96-108); Cholesterol 223 mg/dL (<200); Estimated Glomerular Filt Rate > 60; Glucose Random 110 mg/dL (60-115); HDL Cholesterol 65 mg/dL (>40); LDL Cholesterol Calculated 136 mg/dL (<100); Potassium 4.1 mmol/L (3.3-5.1); Sodium 138 mmol/L (135-145); Total Protein 7.3 g/dL (6.5-8.0); Triglycerides 112 mg/dL (<150)
[2024-11-11 10:09] LABS: Alanine Aminotransferase 55 U/L (0-31); Thyroid Stimulating Hormone 1.68 uIU/mL (0.32-4.0)
[2024-11-11 10:09] LABS: Creatinine Urine 64.18 mg/dL; Microalbumin Urine < 5.0 mg/L
== END 2024-11-11 08:37 | disposition home or self-care (01) ==
LOC: HO.LAB 08:36
PROVIDERS: PCP Internal Medicine; Visit Provider Internal Medicine
DX: E11.9 Type 2 diabetes mellitus without complications (principal)
CPT/HCPCS: 36415; 80048; 80061; 80076; 81003; 82043; 82570; 83036; 84443; 85027

== ENCOUNTER 2024-11-19 14:41 | Outpatient (AMB) | payer BC, SELFPAY ==
--- NOTE | 2024-11-19 15:05 | MHC.OFFWIV ---
Intake Vital Signs 11/19/24 15:06 Height 5 ft 6 in Weight 164 lb BMI 26.5 BP 110/70 Blood Pressure Location Lt brachial Position Sitting Respiration 15 Pulse 78 Pulse Source Pulse Oximeter Temp 98.1 F Temp Source Oral Pulse Oximetry (%) 99 Intake Visit Reasons: EP LT side lip drooping(for a few weeks) Intake Note: Pt is here today c/o Lt side of lip drooping few weeks Patient Tobacco Use Status: Former Tobacco user Allergies metformin Adverse Reaction (Intermediate, Verified 11/19/24 15:08) lower blood sugar SEDATIVE MED Adverse Reaction (Intermediate, Uncoded 11/19/24 15:08) BURNING SENSATION HPI HPI Comments History of Present Illness Details History of Present Illness - The patient is a 54-year-old female presenting with intermittent/transient lip droop on the left side. - Over the last month, the patient has experienced episodes of transient lip droop, resolving with no intervention spontaneously. - These episodes began following a surgical procedure that involved the removal of a lymph node on October 08. - She underwent left submandibular lymph node excision on 10/08/2024. - The patient has identified no persistent numbness, headache, or dizziness. - Initial management with ibuprofen has been attempted to reduce swelling. - patient states she does not currently have the drooping occurring currently but it did happened this morning for short time while she was driving. Physical Exam General: Cooperative, healthy appearing, comfortable, no acute distress and well developed Orientation: Patient oriented x3 Limitations: No limitations Head: Normal to inspection Ears: Hearing grossly normal bilaterally Nose: Normal External nose present Face and sinus: Normal facial exam, no drooping of the lip or side of the face, well healing surgical scar on inferior left mandible, no edema or warmth Eyes: Appearance normal, both eyes and all related structures Neck: Normal visual inspection and Yes full ROM Respiratory: Normal respiratory effort and able to speak in complete sentences. Skin: No rashes or lesions noted Neuro: Patient oriented x3, gait normal, Extremities: Normal to inspection [facility] Medical History (Updated 11/19/24 @ 15:47 by Elisha Luu PA-C) Submandibular lymphadenopathy Diabetes mellitus History of depression Asthma Surgical History (Updated 11/04/24 @ 08:46 by Elaine Salazar) History of colonoscopy (~09/18/24) H/O lymph node excision (10/08/24) H/O elbow surgery H/O Spinal surgery Family History Father Dementia Diabetes FH: HTN (hypertension) Other Mental health disorder Social History Housing: House Are you a primary hearing care professional to a significant other at home: No Do you presently have visiting nurse or other home services: No Alcohol intake: current Alcohol intake frequency: holidays/special occasions only Patient Tobacco Use Status: Former Tobacco user e-Cigarette/Vaping Use: Never Used Second Hand Smoke Exposure: Yes service: No Current occupational status: employed 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 [employer] Sexual orientation: Straight/Heterosexual Gender identity: Female Cognitive needs: No Hearing needs: No Vision needs: Yes (Glasses) Female Reproductive History Menstrual Age of Menarche: 13 Review of Systems Const All systems reviewed & are unremarkable except as noted in HPI and below Physical Exam Vital Signs: Last Vital Signs Temp 98.1 F 11/19/24 15:06 Pulse 78 11/19/24 15:06 Resp 15 11/19/24 15:06 BP 110/70 11/19/24 15:06 Pulse Ox 99 11/19/24 15:06 BMI result Body Mass Index 26.5 Assessment & Plan Assessment & Plan (1) Drooping of mouth: Code(s): R29.810 - Facial weakness Plan: To manage the intermittent lip droop which could possibly be associated with previous lymphadenectomy surgery on the left side, I advise the patient to take ibuprofen consistently for a few days to help alleviate potential inflammation affecting nerves. Follow-up with the operating surgeon, Dr. San, should be pursued to discuss symptoms and potential postoperative complications. If the symptoms do not improve or worsen, further evaluation may be needed. Immediate attention is advised if symptoms become consistent or severe, particularly if indicative of more severe complications. We did discuss signs and symptoms of a stroke as well as Albarado's palsy. Patient was informed and verbally consented to the use of an ambient scribe for clinic note documentation during this visit. Coding Level of Care Code Est Pt Level 3 (50669) Diagnoses Drooping of mouth R29.810
[2024-11-19 15:06] VITALS: BP 110/70; PULSE 78; RESP 15; TEMP 36.7; O2SAT 99; BMI 26.5
== END 2024-11-19 16:54 | disposition home or self-care (01) ==
PROVIDERS: PCP Internal Medicine; Visit Provider Physician Assistant
DX: R29.810 Facial weakness (principal)

== ENCOUNTER → 2024-11-19 14:41 | Outpatient (BNVA) | payer BC, SELFPAY | PROVIDERS: PCP Internal Medicine; Visit Provider Physician Assistant ==

== ENCOUNTER 2024-12-11 08:48 | Outpatient (AMB) | payer BC, SELFPAY ==
--- NOTE | 2024-12-11 08:52 | MHC.PC.OV ---
Vital Signs 12/11/24 08:53 Height 5 ft 6 in Weight 162 lb 6 oz BMI 26.2 BP 130/72 Blood Pressure Location Lt brachial Position Sitting Pulse 76 Pulse Source Pulse Oximeter Temp 97.1 F Temp Source Temporal Artery Scan Pulse Oximetry (%) 98 Oxygen Delivery Method Room Air Intake Visit Reasons: 3mth f/u Intake Note: Patient is here to follow up on DM. Wrapper Counter Required: No Telegraphic Typewriter Repairer: Not Required per policy Accompanied by: Self / Same As Patient Allergies metformin Adverse Reaction (Intermediate, Verified 12/11/24 09:26) lower blood sugar SEDATIVE MED Adverse Reaction (Intermediate, Uncoded 12/11/24 09:26) BURNING SENSATION Medication List - Last Reconciled 12/11/24 by Radha Cyr PA-C blood sugar diagnostic (True Metrix Glucose Test Strip) twice a day blood-glucose meter (True Metrix Glucose Meter) Test blood sugar twice a day lancets (Easy Touch Safety Lancets) test blood sugar twice a day rosuvastatin (Crestor) 10 mg PO DAILY Tobacco use date assessed: 12/11/24 Dental Screening Dental Screen Date: 08/21/24 HPI 3mth f/u HPI Details The patient is a 54-year-old female presenting for a routine follow-up regarding her management of diabetes. She was diagnosed with diabetes mellitus last year and has been able to maintain blood glucose levels within the normal range through lifestyle management alone, with a recent Hemoglobin A1c of 5.8%. She returned a few days ago from a trip to [facility], which she reports has impacted her sleep due to jet lag. Previous medical evaluations revealed elevated liver enzymes, specifically an AST of 36 and an ALT of 55, which were higher earlier this year but have since shown improvement. Her lipid profile indicates elevated cholesterol at 223 mg/dL and LDL at 136 mg/dL. Although she has been trying to manage her cholesterol through her diet, there remains a high level primarily due to a family history of hyperlipidemia, leading to the decision to start cholesterol medication. The patient reports a minor pimple-like swelling on her right lower lip that had been painful but is now only swollen without pain. Additionally, she is due for a mammogram this year and had a colonoscopy earlier in the year with subsequent lymph node have submandibular area removed due to [id number] swelling. Social History - Exercises regularly and reports no changes in activity level. - Recently returned from a two-week trip to [facility]. - Admitted to recent dietary indulgence, specifically in fatty and greasy foods, including increased cheese consumption. - Plans to invest in property in [facility], indicating financial and social ties to the region. - Family history of hyperlipidemia noted. [facility] Medical History (Updated 12/11/24 @ 09:31 by Radha Cyr PA-C) Pure hypercholesterolemia, unspecified Hyperlipidemia LDL goal <100 Submandibular lymphadenopathy Diabetes mellitus History of depression Asthma Surgical History History of colonoscopy (~09/18/24) H/O lymph node excision (10/08/24) H/O elbow surgery H/O Spinal surgery Family History Father Dementia Diabetes FH: HTN (hypertension) Other Mental health disorder Social History Housing: House Are you a primary primary care nurse practitioner to a significant other at home: No Do you presently have visiting nurse or other home services: No Alcohol intake: current Alcohol intake frequency: holidays/special occasions only Patient Tobacco Use Status: Former Tobacco user e-Cigarette/Vaping Use: Never Used Second Hand Smoke Exposure: Yes service: No Current occupational status: employed 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 [employer] Sexual orientation: Straight/Heterosexual Gender identity: Female Cognitive needs: No Hearing needs: No Vision needs: Yes (Glasses) Female Reproductive History Menstrual Age of Menarche: 13 Questionnaire Thrive Questionnaire Date Thrive assessed: 08/21/24 I am a: Patient What is your living situation today?: I have a steady place to live Within the past 12 months, did the food you bought not last and you didn't have the money to get more?: Never true Within the past 12 months, did you worry whether your food would run out before you got money to buy more?: Never true Do you have trouble paying for medicines?: I choose not to answer this question Do you have trouble getting transportation to medical appointments?: No Do you have trouble paying your heating and electricity bill?: No Do you have trouble taking care of your child, family member or friend?: No Do you have trouble with day-to-day activities such as bathing, preparing meals, shopping, managing finances, etc.?: No Are you currently unemployed and looking for a job?: No Are you interested in more education?: No Please select the resources that you would like help with: None Currently or been in a relationship where the following occur: No concerns reported THRIVE Score: 0 TIFFANIE-7 AMB Questionnaire TIFFANIE-7 Date TIFFANIE - 7 assessed: 08/21/24 Source: Developed by Drs. Jett Ferraro, Sybil Gilmore, Benson Wade and colleagues, with an educational jeramie from [employer]. Review of Systems Const Details: - Constitutional: Reports recent jet lag related to travel. - HEENT: Reports pimple to right lower lip. - Cardiovascular: Denies chest pain. - Respiratory: Denies shortness of breath. - Gastrointestinal: Denies abdominal pain, regular bowel movements. - Musculoskeletal: Denies muscle aches currently. - Psychiatric: Denies anxiety or depression. Physical exam (Primary Care) Vital Signs: Last Vital Signs Temp 97.1 F 12/11/24 08:53 Pulse 76 12/11/24 08:53 BP 130/72 12/11/24 08:53 Pulse Ox 98 12/11/24 08:53 Oxygen Delivery Method Room Air 12/11/24 08:53 Care Plan Goal for BP management: <140/90 at goal BMI result Body Mass Index 26.2 BMI Assessment/Plan discussion: High BMI High, discussed plan: lifestyle, weight reduction, dietary, physical activity and alcohol moderation Tobacco/Smoking Status: Tobacco use Status Tobacco use date assessed 12/11/24 12/11/24 08:57 Patient Tobacco Use Status Former Tobacco user 12/11/24 08:57 e-Cigarette/Vaping Use Never Used 12/11/24 08:57 Thrive Assessment: Date of Thrive Assessment Date Thrive assessed 08/21/24 12/11/24 08:57 Currently or been in a relationship where the following occur: No concerns reported Const Other: Appearance: Alert. Oriented X3. No acute distress. Head: Normal external exam. Normocephalic. Atraumatic. Eyes: Pupils are equal, round, and reactive to light. Extraocular movements intact. Conjunctiva and sclera normal. Eyelids within normal limits. Ears: External auditory canal normal. Right ear appears slightly swollen. Tympanic membranes normal. Throat: Pharynx normal. Uvula midline. Moist mucous membranes. Neck: Normal inspection. Neck supple. Full range of motion. No adenopathy. Thyroid Normal. No meningeal signs. No neck mass noted. Cardiovascular: Normal heart rate and rhythm. Heart sound normal. No murmurs noted. Pulses normal throughout. Respiratory: No respiratory distress. Painless inspiration. Breath sounds normal. No wheezes/rales/rhonchi noted. Chest nontender. No accessory muscle usage noted or decreased air movement noted. Abdomen: Soft and nontender. No distention noted. No organomegaly noted. No visible injury noted. Back: No costovertebral angle tenderness. Full range of motion noted. Skin: Skin warm and dry. Normal skin color. Normal skin turgor. No rashes/lesions/lacerations noted. Extremities: No lower extremity edema. Extremities exhibit normal range of motion. Extremities nontender. Neuro: Oriented X 3. No motor deficit. No sensory deficit. Reflexes normal. Results Reviewed Results Reviewed: - Labs: Hemoglobin A1c 5.8% (well-controlled diabetes), elevated cholesterol 223 mg/dL, LDL 136 mg/dL. - Liver Enzymes: AST 36, ALT 55 (improved from previous levels). Coding Level of Care Code Est Pt Level 3 (47180) Complex EM visit Add On G2211 Diagnoses Diabetes mellitus E11.9 Hyperlipidemia LDL goal <100 E78.5 Pure hypercholesterolemia, unspecified E78.00 Assessment & Plan Assessment & Plan (1) Diabetes mellitus: Code(s): E11.9 - Type 2 diabetes mellitus without complications Category: Medical Plan: Plan for continued management with lifestyle modifications and follow-up in three months for diabetes check. A1c level at 6.8 today. Condition is chronic and stable will continue diet for diabetes control. (2) Hyperlipidemia LDL goal <100: Code(s): E78.5 - Hyperlipidemia, unspecified Category: Medical Plan: Patient will be started on Crestor 10 mg. Condition is chronic and stable continue to monitor. (3) Pure hypercholesterolemia, unspecified: Code(s): E78.00 - Pure hypercholesterolemia, unspecified Category: Medical Plan: Patient will be started on Crestor 10 mg. Condition is chronic and stable continue to monitor. Plan Plan Patient was informed and verbally consented to the use of an ambient scribe for clinic note documentation during this visit. 1. Diabetes Mellitus Plan for continued management with lifestyle modifications and follow-up in three months for diabetes check. 2. Hyperlipidemia Initiate low-dose statin therapy for cholesterol management, monitoring lipid profile in upcoming months, and observing for side effects. 3. Elevated Liver Enzymes Continue monitoring liver enzymes, noting recent improvements and assessing in relation to dietary and medication changes. 4. Lip Pimple Advise on non-pharmacological management with warm compresses and monitor unless symptoms change. We discussed the management and treatment options for her current hyperlipidemia, including the initiation of a low-dose statin due to personal and family history of elevated cholesterol and inability to control it solely through diet. The potential side effects of statins, particularly muscle aches, were reviewed, and the patient was informed to report any adverse effects. The plan includes a re-evaluation of the lipid profile in three to six months. We also reviewed her current diabetes management, affirming that lifestyle measures are successfully controlling her HbA1c levels, eliminating the need for medication at this time. We talked about her pinple on lip, advising monitoring and the application of warm compresses. I recommended a mammogram as she is due this year and discussed follow-up plans for routine checks, with a three-month timeline for diabetes reassessment. The patient was also informed of the importance of ongoing oral health care and awareness of any new or changing symptoms. Orders: Orders MM screening mammo BI Today Z12.31 - Encounter for screening mammogram for malignant neoplasm of breast Medications: New rosuvastatin (Crestor) 10 mg PO DAILY 90 tabs 1RF Patient Instructions: - Continue to manage your blood sugar through diet and exercise. - Take the prescribed statin at bedtime and monitor for any side effects like muscle aches. - Apply a warm compress to your pinple on lip as needed. - Attend your mammogram screening as scheduled. - Return for a diabetes follow-up in three months. - Contact the office if you experience any concerns or changes in symptoms.
[2024-12-11 08:53] VITALS: BP 130/72; PULSE 76; TEMP 36.2; O2SAT 98; BMI 26.2
--- OUTSIDE RECORDS SUMMARY | 2024-12-11 08:59 | XMS_ITS ---
Author Organization Jett Riddle III, MD Address [address] [place] [address] [place] [address] Care Team Providers Care Lunchroom Attendant Name Role Phone Rui Lemos MD Primary Care Provider Jett Oakes Unavailable [phone] Allergies Allergen (clinical drug ingredient) Drug/Non Drug [...] Problem Status W/U Status Risk Notes Problem 48211271 Adenopathy (R59.9) Active confirmed The lymph node [...] Date Provider Diagnosis Jett Riddle III, MD [address] [place] [address] DR RINALDIEDWARD, COLEEN [address] 08/06/2023 Jett Riddle Former smoker Z87.89 1 [...] Notes * WALLY COLLADOOB:1970 (52 yo F)Acc No.[id number]:08/06/2023 Progress Notes Patient:?COLEEN COLLADO Provider:?Jett Riddle MD :1970???Age:52 Y???Sex:Female D ate:08/06/2023 Address:[address] [place], [place] [id number] Pcp:Rui Lemos MD Subjective: * Chief Complaints: [...] Tobacco Non-User?Ex-cigarette smoker ???She was born in [facility]. She has lived in the [facility] for 33 years. She has been to [place] for 22 years. They have 1 daughter Lulu who is 25 and healthy and well. There are no grandchildren. 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 She has no buddhism objection to blood transfusion. She smokes one [...] Riddle MD Date:?07/23 Generated for Printi ng/Roman/eTransmitting on:?12/11/2024 08:59 AM EDT History and Physical Notes * [...]
--- OUTSIDE RECORDS SUMMARY | 2024-12-11 08:59 | XMS_ITS | Patient Health Record ---
Author Organization Jett Riddle III, MD Address [address] [place] [address] LINDA Samuel [place] [address] Care Team Providers Care Forestry Scientist Name Role Phone Rui Lemos MD Primary Care Provider Jett Oakes Unavailable [phone] Allergies Allergen (clinical drug ingredient) Drug/Non Drug [...] Problem Status W/U Status Risk Notes Problem 7877813 Former smoker (Z87.891) Active confirmed She has a plan to prevent relapse and times of stress and illness. Problem 641131328 Overweight (E66.3) Active confirmed Her body mass i ndex is 27. We discussed her diet and nutrition. We made a plan to lose weight at a rate of one half damien a pound per week. Problem 61103568 Adenopathy (R59.9) Active confirmed The lymph node will be observed at short intervals. Comprehensive bloood work was ordered. If there is progression in the lymph node. It will be excised and study further. Problem 841535379 Cervical adenopathy (R59.0) Active confirmed The lymph node in the upper left neck is Unchanged It is mobile and nontender. She will be observed. The differential diagnosis remains a chronic lymphoproliferative process versus reactive lymph node. Problem 731714042 History of spinal stenosis (Z87.39) Active confirmed She has had a laminectomy in the past. Her pain is much improved but still present intermittently. Plan Of Treatment Pending Test Test Name Order Date PROFILE, RANDOM (COMPREHENSIVE METABOLIC ) 08/06/2023 PROFILE, RANDOM (COMPREHENSIVE METABOLIC ) 06/27/2022 PROFILE, RANDOM (COMPREHENSIVE METABOLIC ) 03/14/2023 GGT 06/27/2022 LDH 06/27/2022 LDH 12/14/2022 LDH [...] Insured Coverage Start Date Coverage End Date [facility] [address] [place], [place] [id number] COLEEN COLLADO Self - patient is the insured Medical (General) History Medical History History ICD Code Cervical adenopathy Overweight Childhood meningitis Extraction maxillary molar Negative test for tuberculosis Tobacco dependence Spinal stenosis Surgical History Surgery Date(Month/Year) Laminectomy lumbar spine for spinal sten osis 2005 Surgical procedure right elbow 2017
--- OUTSIDE RECORDS SUMMARY | 2024-12-11 09:00 | XMS_ITS ---
Author Organization Jett Riddle III, MD Address [address] [place] [address] [place] [address] Care Team Providers Care Pipe Setter Name Role Phone Rui Lemos MD Primary Care Provider Jett Oakes [facility] [phone] Allergies Allergen (clinical drug ingredient) Drug/Non Drug [...] Provider Diagnosis Jett Riddle III, MD [address] [place] [address] [place] [address] 11/05/2023 Jett Riddle Plan Of Treatment Medication Medication Name Sig Start Date Stop Date Notes Ibuprofen 400 MG TAKE 1 TABLET BY JUANA TH EVERY FOUR HOURS NEEDED FOR PAIN Oral FLUoxetine HCl 10 MG TAKE 1 CAPSULE BY M OUTH EVERY DAY Oral Progress Notes * MARGOT COLLADOEDOB:1970 (54 yo F)Acc No.[id number]:11/05/2023 Progress Notes Patient:?COLEEN COLLADO Provider:?Jett Riddle MD :1970???Age:53 Y???Sex:Female D ate:11/05/2023 Address:[address] [place] [address] Pcp:Rui Lemos MD Subjective: * Chief Complaints: [...] Tobacco Non-User?Ex-cigarette smoker ???She was born in [facility]. She has lived in the [facility] for 33 years. She has been to [...] Riddle MD Date:?10/21 Generated for Printi ng/Roman/eTransmitting on:?12/11/2024 08:59 AM EDT History and Physical Notes * HPI (History of Present Illness) Category Sub-Category Detail Notes COVID-19 Screening Questions Have you had any new onset fever, chills, cough, congestion, sore throat, shortness of breath, muscle aches?: No Have you been exposed to the virus withi n the last 10 days?: No Have you travelled internationally in [facility] last 10 days?: No Have you [...]
== END 2024-12-11 09:18 | disposition home or self-care (01) ==
LOC: HO.HMCH 08:49
PROVIDERS: PCP Internal Medicine; Visit Provider Physician Assistant Medical
DX: E11.9 Type 2 diabetes mellitus without complications (principal); E78.5 Hyperlipidemia, unspecified; E78.00 Pure hypercholesterolemia, unspecified

== ENCOUNTER → 2024-12-11 08:48 | Outpatient (BNVA) | payer BC, SELFPAY | PROVIDERS: PCP Internal Medicine; Visit Provider Physician Assistant Medical | DX: Z13.89 Encounter for screening for other disorder (principal) ==

== ENCOUNTER 2024-12-23 08:16 | Outpatient (AMB) | payer BC, SELFPAY ==
--- NOTE | 2024-12-23 08:17 | MHC.OFFWIV ---
Intake Vital Signs 12/23/24 08:19 Weight 165 lb BP 114/70 Blood Pressure Location Lt brachial Position Sitting Pulse 68 Pulse Source Pulse Oximeter Temp 98 F Temp Source Oral Pulse Oximetry (%) 97 Oxygen Delivery Method Room Air Intake Visit Reasons: EP Congestion, cough Intake Note: Patient here for cough and congestion that has been present for 2 weeks w/no improvement w/OTC meds. Patient Tobacco Use Status: Former Tobacco user Allergies metformin Adverse Reaction (Intermediate, Verified 12/23/24 08:24) lower blood sugar SEDATIVE MED Adverse Reaction (Intermediate, Uncoded 12/23/24 08:24) BURNING SENSATION Do you need a note to return to daycare/school/sports/work: No HPI HPI Comments History of Present Illness Details History of Present Illness The patient is a 54-year-old female presenting with congestion and cough for over two weeks. She states that she has had congestion and runny followed by postnasal drip that resulted in a brief sore throat. She states that the sore throat has resolved. The patient reports this led to a persistent cough, primarily exhibiting as an intermittent issue that occurs both day and night. She has been using Mucinex with minimal relief. She denies fever, ear pain, headaches, or dizziness. Initially yellow, the nasal discharge has changed to clear. She has no sick contacts. She has been eating and drinking. She is not a smoker. She denies CP, SOB, abd pain, n/v/d. Physical Exam General: Cooperative, healthy appearing, comfortable, no acute distress and well developed Orientation: Patient oriented x3 Head: Normal to inspection Ears: Hearing grossly normal bilaterally, no ear pain Nose: Normal external nose present, nasal drip noted Face and sinus: Normal facial exam. No TTP of the sinuses. Neck: Normal visual inspection and Yes full ROM. No lymphadenopathy noted. Respiratory: Normal respiratory effort and able to speak in complete sentences. Clear to auscultation bilaterally, no wheezing, rales, or rhonchi. Cardiovascular: Regular rate and rhythm. Normal S1 and S2 GI: Normal to inspection. Soft to palpation and nontender. No guarding noted. Skin: No rashes or lesions noted Patient was informed and verbally consented to the use of an ambient scribe for clinic note documentation during this visit. [facility] Medical History (Updated 12/11/24 @ 09:36 by Radha Cyr PA-C) History of mammogram (~11/2023) Pure hypercholesterolemia, unspecified Hyperlipidemia LDL goal <100 Submandibular lymphadenopathy Diabetes mellitus History of depression Asthma Surgical History History of colonoscopy (~09/18/24) H/O lymph node excision (10/08/24) H/O elbow surgery H/O Spinal surgery Family History Father Dementia Diabetes FH: HTN (hypertension) Other Mental health disorder Social History Housing: House Are you a primary infant caregiver to a significant other at home: No Do you presently have visiting nurse or other home services: No Alcohol intake: current Alcohol intake frequency: holidays/special occasions only Patient Tobacco Use Status: Former Tobacco user e-Cigarette/Vaping Use: Never Used Second Hand Smoke Exposure: Yes service: No Current occupational status: employed 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 [employer] Sexual orientation: Straight/Heterosexual Gender identity: Female Cognitive needs: No Hearing needs: No Vision needs: Yes (Glasses) Female Reproductive History Menstrual Age of Menarche: 13 Review of Systems Const All systems reviewed & are unremarkable except as noted in HPI and below Physical Exam Vital Signs: Last Vital Signs Temp 98 F 12/23/24 08:19 Pulse 68 12/23/24 08:19 BP 114/70 12/23/24 08:19 Pulse Ox 97 12/23/24 08:19 Oxygen Delivery Method Room Air 12/23/24 08:19 Assessment & Plan Assessment & Plan (1) Upper respiratory tract infection: Code(s): J06.9 - Acute upper respiratory infection, unspecified Plan Most likey URI vs sinusitis vs viral syndrome vs covid vs flu Plan The patient's symptoms indicate a viral upper respiratory infection with associated postnasal drip and cough. Management will focus on symptomatic relief using a nasal corticosteroid spray and an oral decongestant with antihistamine to control nasal secretions. A cough suppressant is also prescribed to assist with nighttime symptoms. This course of treatment is anticipated to provide effective management of symptoms as the viral condition resolves naturally over time, without the need for further diagnostic measures. Medications: New benzonatate 100 mg PO bid-tid 7 days PRN 20 caps 0RF Cough fluticasone propionate 50 mcg/actuation administer into each nostril 1 spray intranasal Q12H 16 grams 0RF fexofenadine-pseudoephedrine 60-120 mg ER (Muriel-D 12 Hour) 1 tab PO Q12H 7 days PRN 14 tabs 0RF allergy symptoms Coding Level of Care Code Est Pt Level 3 (77510) Diagnoses Upper respiratory tract infection J06.9
[2024-12-23 08:19] VITALS: BP 114/70; PULSE 68; TEMP 36.6; O2SAT 97
--- OUTSIDE RECORDS SUMMARY | 2024-12-23 08:23 | XMS_ITS ---
Author Organization Jett Riddle III, MD Address [address] [place] [address] [place] [address] Care Team Providers Care Maintenance And Operations Supervisor Name Role Phone Rui Lemos MD Primary Care Provider Jett Oakes Unavailable [phone] Allergies Allergen (clinical drug ingredient) Drug/Non Drug [...] Problem Status W/U Status Risk Notes Problem 51978602 Adenopathy (R59.9) Active confirmed The lymph node [...] Date Provider Diagnosis Jett Riddle III, MD [address] [place] [address] DR RINALDIEDWARD, COLEEN [phone] 08/06/2023 Jett Riddle Former smoker Z87.89 1 [...] Notes * WALLY COLLADOOB:1970 (52 yo F)Acc No.[id number]:08/06/2023 Progress Notes Patient:?COLEEN COLLADO Provider:?Jett Riddle MD :1970???Age:52 Y???Sex:Female D ate:08/06/2023 Address:[address] [place], [place] [id number] Pcp:Rui Lemos MD Subjective: * Chief Complaints: [...] Tobacco Non-User?Ex-cigarette smoker ???She was born in [facility]. She has lived in the [facility] for 33 years. She has been to [place] for 22 years. They have 1 daughter Lulu who is 25 and healthy and well. There are no grandchildren. 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 She has no rastafari objection to blood transfusion. She smokes one [...] Riddle MD Date:?07/23 Generated for Printi ng/Roman/eTransmitting on:?12/23/2024 08:23 AM EDT History and Physical Notes * [...]
== END 2024-12-23 08:57 | disposition home or self-care (01) ==
PROVIDERS: PCP Internal Medicine; Visit Provider Physician Assistant Medical
DX: J06.9 Acute upper respiratory infection, unspecified (principal)

== ENCOUNTER → 2024-12-23 08:16 | Outpatient (BNVA) | payer BC, SELFPAY | PROVIDERS: PCP Internal Medicine; Visit Provider Physician Assistant Medical | DX: Z13.89 Encounter for screening for other disorder (principal) ==

== ENCOUNTER 2025-01-01 08:30 | Outpatient (AMB) | payer BC, SELFPAY ==
--- NOTE | 2025-01-01 08:38 | MHC.PC.OV ---
Vital Signs 01/01/25 08:42 Height 5 ft 6 in Weight 162 lb 4 oz BMI 26.2 BP 120/70 Blood Pressure Location Lt brachial Position Sitting Pulse 71 Pulse Source Pulse Oximeter Temp 97.3 F Temp Source Temporal Artery Scan Pulse Oximetry (%) 98 Oxygen Delivery Method Room Air Intake Visit Reasons: follow up walk in requesting new meds Intake Note: Patient is here to follow-up after a visit the emergency department at [facility] on 12/23/24. Soup Person Required: No Project Financial Analyst: Not Required per policy Accompanied by: Self / Same As Patient Allergies fexofenadine [From Muriel-D 12 Hour] Allergy (Intermediate, Verified 01/01/25 09:04) Worsen cold symtoms fluticasone [From Flonase] Allergy (Intermediate, Verified 01/01/25 09:04) More congested pseudoephedrine [From Muriel-D 12 Hour] Allergy (Intermediate, Verified 01/01/25 09:04) Worsen cold symtoms metformin Adverse Reaction (Intermediate, Verified 01/01/25 09:04) lower blood sugar SEDATIVE MED Adverse Reaction (Intermediate, Uncoded 01/01/25 09:04) BURNING SENSATION Medication List - Last Reconciled 01/01/25 by Clement Rolle MD azithromycin take 500 mg today (day 1), then 250 mg for 4 days (days 2-5) PO benzonatate 100 mg PO bid-tid PRN 7 days blood sugar diagnostic (True Metrix Glucose Test Strip) twice a day blood-glucose meter (True Metrix Glucose Meter) Test blood sugar twice a day codeine-guaifenesin 10-100 mg/5 mL 5 mL PO Q6H PRN lancets (Easy Touch Safety Lancets) test blood sugar twice a day rosuvastatin (Crestor) 10 mg PO DAILY Tobacco use date assessed: 01/01/25 Dental Screening Dental Screen Date: 08/21/24 [facility] Medical History (Updated 12/11/24 @ 09:36 by Radha Cyr PA-C) History of mammogram (~11/2023) Pure hypercholesterolemia, unspecified Hyperlipidemia LDL goal <100 Submandibular lymphadenopathy Diabetes mellitus History of depression Asthma Surgical History History of colonoscopy (~09/18/24) H/O lymph node excision (10/08/24) H/O elbow surgery H/O Spinal surgery Family History Father Dementia Diabetes FH: HTN (hypertension) Other Mental health disorder Social History Housing: House Are you a primary resident care provider to a significant other at home: No Do you presently have visiting nurse or other home services: No Alcohol intake: current Alcohol intake frequency: holidays/special occasions only Patient Tobacco Use Status: Former Tobacco user e-Cigarette/Vaping Use: Never Used Second Hand Smoke Exposure: Yes service: No Current occupational status: employed 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 [employer] Sexual orientation: Straight/Heterosexual Gender identity: Female Cognitive needs: No Hearing needs: No Vision needs: Yes (Glasses) Female Reproductive History Menstrual Age of Menarche: 13 Questionnaire Thrive Questionnaire Date Thrive assessed: 08/21/24 I am a: Patient What is your living situation today?: I have a steady place to live Within the past 12 months, did the food you bought not last and you didn't have the money to get more?: Never true Within the past 12 months, did you worry whether your food would run out before you got money to buy more?: Never true Do you have trouble paying for medicines?: I choose not to answer this question Do you have trouble getting transportation to medical appointments?: No Do you have trouble paying your heating and electricity bill?: No Do you have trouble taking care of your child, family member or friend?: No Do you have trouble with day-to-day activities such as bathing, preparing meals, shopping, managing finances, etc.?: No Are you currently unemployed and looking for a job?: No Are you interested in more education?: No Please select the resources that you would like help with: None Currently or been in a relationship where the following occur: No concerns reported THRIVE Score: 0 TIFFANIE-7 AMB Questionnaire TIFFANIE-7 Date TIFFANIE - 7 assessed: 08/21/24 Source: Developed by Drs. Jett Ferraro, Sybil Gilmore, Benson Wade and colleagues, with an educational jeramie from [employer]. Physical exam (Primary Care) Vital Signs: Last Vital Signs Temp 97.3 F 01/01/25 08:42 Pulse 71 01/01/25 08:42 BP 120/70 01/01/25 08:42 Pulse Ox 98 01/01/25 08:42 Oxygen Delivery Method Room Air 01/01/25 08:42 BMI result Body Mass Index 26.2 Tobacco/Smoking Status: Tobacco use Status Tobacco use date assessed 01/01/25 01/01/25 08:47 Patient Tobacco Use Status Former Tobacco user 01/01/25 08:41 e-Cigarette/Vaping Use Never Used 01/01/25 08:41 Thrive Assessment: Date of Thrive Assessment Date Thrive assessed 08/21/24 01/01/25 08:41 Currently or been in a relationship where the following occur: No concerns reported Coding Level of Care Code Est Pt Level 3 (28021) Complex EM visit Add On G2211 Diagnoses Upper respiratory tract infection J06.9 Assessment & Plan Assessment & Plan (1) Upper respiratory tract infection: Code(s): J06.9 - Acute upper respiratory infection, unspecified Category: Medical Plan: Azithromycin and codeine prescribed. IF sx not better to follow up here. Plan History of Present Illness - The patient is a 54-year-old female presenting with cough persisting despite prior treatment. Reports clear nasal discharge, occasionally slightly yellow. - Used nasal spray without relief; switched to Mucinex. - Denies impact on work capacity and reports consistent negative COVID-19 testing. - Noteworthy recent travel to [facility] with return on December 09. - Ears experience intermittent popping. - Recalls similar past episode treated with codeine cough suppressant. Social History - Employment: Works at [employer] in [place]. - Travel: Recent three-week trip to [facility], returned on December 09. Review of Systems - Respiratory: Reports persistent cough, clear nasal discharge with occasional yellow. - General: Denies missing work, fatigue not mentioned. - Ear/Nose/Throat: Reports frequent ear popping. Physical Exam General: Cooperative and healthy appearing Nutritional Appearance: Well nourished Orientation/consciousness: Patient oriented x3 Limitations: No limitations Head: Normal to inspection General: Appearance normal, both eyes and all related structures Neck: Normal visual inspection Chest: Normal palpation of entire chest wall Respiratory: Cough present, viral in nature ormal respiratory effort Neurology: Patient oriented x3 Results Plan 1. Cough - Initiate antibiotic course for potential bacterial component. - Use Robitussin every six hours for symptom management. - Cough suppressant with codeine prescribed for severe cough. - Patient advised symptoms might continue for another two weeks. Discussion Notes I discussed with the patient that the symptoms, including the persistent cough, are likely due to a viral infection. We talked about the option of prescribing an antibiotic to potentially address any secondary bacterial infection, with an understanding that it is for a five-day course. I recommended the ongoing use of Robitussin for cough relief and wrote a script for a cough suppressant with codeine, which had been effective for her in the past. We reviewed that such viral infections can have lingering effects, potentially lasting up to two more weeks. The patient agreed to the plans and medications provided and expressed understanding of the treatment course and expectations. Patient Instructions - Take prescribed antibiotic for five days as directed. - Use Robitussin every six hours to alleviate cough symptoms. - Follow dosage instructions for the codeine-containing cough suppressant. - Monitor symptoms and expect potential resolution within the next two weeks. - Contact healthcare provider if symptoms significantly worsen or new symptoms arise. Medications: New azithromycin take 500 mg today (day 1), then 250 mg for 4 days (days 2-5) PO 6 tabs 0RF codeine-guaifenesin 10-100 mg/5 mL 5 mL PO Q6H PRN 120 mL 0RF allergy symptoms
[2025-01-01 08:42] VITALS: BP 120/70; PULSE 71; TEMP 36.3; O2SAT 98; BMI 26.2
--- OUTSIDE RECORDS SUMMARY | 2025-01-01 08:43 | XMS_ITS ---
Author Organization Jett Riddle III, MD Address [address] [place] [address] [place] [address] Care Team Providers Care Grooming Assistant Name Role Phone Rui Lemos MD Primary Care Provider Jett Oakes Unavailable [phone] Allergies Allergen (clinical drug ingredient) Drug/Non Drug [...] Problem Status W/U Status Risk Notes Problem [id number] Adenopathy (R59.9) Active confirmed The lymph node [...] Date Provider Diagnosis Jett Riddle III, MD [address] [place] [address] DR RINALDIEDWARD, COLEEN [address] 08/06/2023 Jett Riddle Former smoker Z87.89 1 [...] Notes * WALLY COLLADOOB:1970 (52 yo F)Acc No.[id number]:08/06/2023 Progress Notes Patient:?COLEEN COLLADO Provider:?Jett Riddle MD :1970???Age:52 Y???Sex:Female D ate:08/06/2023 Address:[address] [place], [place] [id number] Pcp:Rui Lemos MD Subjective: * Chief Complaints: [...] Tobacco Non-User?Ex-cigarette smoker ???She was born in [facility]. She has lived in the [facility] for 33 years. She has been to [place] for 22 years. They have 1 daughter Lulu who is 25 and healthy and well. There are no grandchildren. 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 She has no tenriism objection to blood transfusion. She smokes one [...] Riddle MD Date:?07/23 Generated for Printi ng/Roman/eTransmitting on:?01/01/2025 08:42 AM EDT History and Physical Notes * [...]
== END 2025-01-01 10:37 | disposition home or self-care (01) ==
LOC: HO.HMCH 08:31
PROVIDERS: PCP Internal Medicine; Visit Provider Internal Medicine
DX: J06.9 Acute upper respiratory infection, unspecified (principal)

== ENCOUNTER → 2025-01-01 08:30 | Outpatient (BNVA) | payer BC, SELFPAY | PROVIDERS: PCP Internal Medicine; Visit Provider Internal Medicine | DX: Z13.89 Encounter for screening for other disorder (principal) ==

== ENCOUNTER 2025-02-16 19:37 | Inpatient (IN) | payer BC, SELFPAY ==
--- NOTE | ~2025-02-16 | CT_ITS ---
CLINICAL HISTORY: RLQ pain, appy?? CT Abdomen and Pelvis W Contrast COMPARISON: US/NE/SR - US ABDOMEN - 04/22/24 08:27 EDT FINDINGS: Normal liver. Normal spleen. Normal kidneys. No urolithiasis or hydronephrosis. Normal adrenal glands. Normal pancreas. No visible cholelithiasis. No biliary dilation. Colonic diverticulosis without evidence of acute diverticulitis. No mucosal thickening. No evidence of obstruction. Dilated appendix measuring up to 1.3 cm in diameter, with adjacent fat stranding. No visible appendicolith. Unremarkable bladder. Anterior uterine mass measuring 1.8 cm, possibly a fibroid. No ascites. No pneumoperitoneum. No lymphadenopathy. No acute fracture. Mild degenerative changes in the spine. No abdominal aortic aneurysm. IMPRESSION: Findings consistent with acute appendicitis. Nonemergent/incidental findings above. This document has been electronically signed by: Elder Del Cid MD on 02/17/2025 02:07:54
[2025-02-16 20:07] VITALS: BP 150/80; PULSE 95; RESP 18; TEMP 36.3; O2SAT 99; BMI 26.3
--- NOTE | 2025-02-16 20:08 | ED.GENADULT ---
HPI - General Adult General Chief complaint: Abdominal Pain Stated complaint: abd pain,vomiting Time Seen by Provider: 02/17/25 00:05 Source: patient Limitations: no limitations History of Present Illness ED Provider: Beverly Ragsdale PA-C HPI narrative: 54-year-old female with a history of hyperlipidemia, diabetes, asthma, depression who presents with the abdominal pain since earlier today. Patient states she has been having right lower abdominal discomfort described as cramping throughout the day. Her pain fluctuates in intensity, becoming severe at times. Pain worse with walking, the pain radiates to the umbilicus at times. Associated nausea vomiting and chills. Patient states she had 3 episodes of loose stool earlier today, nothing additional. Denies recent travel outside the country, recent hospitalization or use of antibiotics. No sick contacts with similar symptoms. Related Data Home Medications ?Medication ?Instructions ?Recorded ?Confirmed blood sugar diagnostic (True 08/21/24 01/01/25 Metrix Glucose Test Strip) blood-glucose meter (True Metrix 08/21/24 01/01/25 Glucose Meter) lancets 28 gauge (Easy Touch 08/21/24 01/01/25 Safety Lancets) Previous Rx's ?Medication ?Instructions ?Recorded rosuvastatin 10 mg tablet (Crestor) 10 mg PO DAILY #90 tabs 12/11/24 benzonatate 100 mg capsule 100 mg PO bid-tid PRN Cough 7 days 12/23/24 #20 caps azithromycin 250 mg tablet See Rx Instructions PO .COMPLEX #6 01/01/25 tabs codeine 10 mg-guaifenesin 100 mg/5 5 ml PO Q6H PRN allergy symptoms 01/01/25 mL oral liquid #120 mL Allergies Allergy/AdvReac Type Severity Reaction Status Date / Time fexofenadine (From Muriel-D Allergy Intermediate Worsen Verified 02/16/25 20:09 12 Hour) cold symtoms fluticasone (From Flonase) Allergy Intermediate More Verified 02/16/25 20:09 congested pseudoephedrine (From Allergy Intermediate Worsen Verified 02/16/25 20:09 Muriel-D 12 Hour) cold symtoms metformin AdvReac Intermediate lower Verified 02/16/25 20:09 blood sugar SEDATIVE MED AdvReac Intermediate BURNING Uncoded 01/01/25 09:04 SENSATION Review of Systems Review of Systems: Yes all other systems are reviewed and are negative Constitutional: Constitutional: Reports chills, Denies fatigue and Denies fever(s) Cardiovascular: Cardiovascular: Denies chest pain and Denies dyspnea Respiratory: Respiratory: Denies dyspnea Gastrointestinal: Gastrointestinal: Reports abdominal pain, Reports nausea and Reports vomiting Genitourinary: Genitourinary: Denies hematuria and Denies dysuria Endocrine: Endocrine: Denies fatigue [facility] Past Medical History Attestation statement: The following information was validated with the patient. Medical History (Updated 02/17/25 @ 03:24 by AMI Garcia) History of mammogram (~11/2023) Pure hypercholesterolemia, unspecified Hyperlipidemia LDL goal <100 Submandibular lymphadenopathy Diabetes mellitus History of depression Asthma Surgical History History of colonoscopy (~09/18/24) H/O lymph node excision (10/08/24) H/O elbow surgery H/O Spinal surgery Family History Family History Father Dementia Diabetes FH: HTN (hypertension) Other Mental health disorder Social History Social History Housing: House Are you a primary critical care unit manager to a significant other at home: No Do you presently have visiting nurse or other home services: No Alcohol intake: current Alcohol intake frequency: does not drink Patient Tobacco Use Status: Former Tobacco user Smoked in Last 30 Days: No e-Cigarette/Vaping Use: Never Used Second Hand Smoke Exposure: Yes Use of substances other than those prescribed or required for medical reasons: No Advance Directives: No Advance Directives Information Provided: Yes service: No Current occupational status: employed 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 [employer] Sexual orientation: Straight/Heterosexual Gender identity: Female Cognitive needs: No Hearing needs: No Vision needs: Yes (Glasses) Physical Exam ED Exam Exam: Alert Vital Signs: Vital Signs - 24 hr 02/16/25 20:07 02/17/25 00:00 02/17/25 02:05 Temperature 97.4 F 98.0 F 98.1 F Pulse Rate 95 89 93 Respiratory Rate 18 16 18 Blood Pressure 150/80 H 112/72 126/81 Pulse Oximetry 99 98 100 Oxygen Delivery Method Room Air Room Air Room Air BMI result Body Mass Index 26.3 Const Orientation/consciousness: patient oriented x3 Resp Effort & Inspection: normal respiratory effort Cardio Other: Normal peripheral perfusion GI Other: Abdomen is soft, nondistended, moderate to severe tenderness in right lower abdomen with involuntary guarding, referred pain from left lower quadrant to the right Skin Other: Warm dry no rash Neuro General: patient oriented x3, gait normal, no focal motor deficits and CN's II-XI intact bilaterally Psych Other: Cooperative Course Course Course Narrative: This is a rapid medical exam performed by Gino Elizabeth NP: Additional HPI, ROS, PE not included below will be deferred to primary provider. Patient is a 54-year-old female with history of DM, HLD presenting to the ED with complaint of RLQ pain radiating to LLQ/periumbilical area. Nausea and vomiting, denies diarrhea but states did have around 5 bowel movements today. Plan: labs, UA, viral panel Consultations Consultation #1: per Marko .......she will admit the patient Time: 02:18 Medications Administered Discontinued Medications Generic Name Dose Route Start Last Admin Trade Name Freq PRN Reason Stop Dose Admin Sodium Chloride 1,000 mls @ 999 mls/hr 02/17/25 00:30 02/17/25 01:49 Ns IV 02/17/25 01:30 Infused .Q1H1M SANDRA Infusion Piperacillin Sod/Tazobactam 50 mls @ 100 mls/hr 02/17/25 02:08 02/17/25 02:57 Sod 3.375 gm/ Sodium Chloride IV 02/17/25 02:37 Infused ONCE ONE Infusion Acetaminophen 1,000 mg in 100 mls @ 400 mls/hr 02/17/25 02:29 02/17/25 02:50 Ofirmev IV 02/17/25 02:43 Infused ONCE ONE Infusion Iohexol 85 ml 02/17/25 00:50 02/17/25 00:51 Iohexol 350 Mg/Ml 100 Ml Infus..Btl IV 02/17/25 00:51 85 ml ONCE ONE Administration Morphine Sulfate 4 mg 02/17/25 00:23 02/17/25 01:00 Morphine Sulfate 4 Mg/Ml Cartridge IVPUSH 02/17/25 00:24 4 mg ONCE ONE Administration Protocol Ondansetron HCl 4 mg 02/16/25 22:58 02/17/25 00:32 Ondansetron Odt 4 Mg Tab.Kay TONYINGU 02/16/25 22:59 Not Given ONCE STA Ondansetron HCl 4 mg 02/17/25 00:23 02/17/25 01:00 Ondansetron Hcl 4 Mg/2 Ml Vial IVPUSH 02/17/25 00:24 4 mg ONCE ONE Administration Medical Decision Making Medical Decision Making MDM Narrative: 54-year-old female with a history of hyperlipidemia, diabetes, asthma, depression who presents with the abdominal pain since earlier today. Patient states she has been having right lower abdominal discomfort described as cramping throughout the day. Her pain fluctuates in intensity, becoming severe at times. Pain worse with walking, the pain radiates to the umbilicus at times. Associated nausea vomiting and chills. Patient states she had 3 episodes of loose stool earlier today, nothing additional. Denies recent travel outside the country, recent hospitalization or use of antibiotics. No sick contacts with similar symptoms. Problem: Diabetes History: Per patient I have considered the following differential diagnoses: Traveler's diarrhea, viral gastroenteritis, sigmoid diverticulitis, appendicitis , C diff Plan: Given distribution of discomfort and nature of symptoms, I am most concerned for appendicitis. Given concurrent diarrhea, perhaps this is sigmoid diverticulitis. Regardless she is getting a CT scan, her abdominal exam was concerning. We will be giving IV fluid, Zofran and morphine. Screening labs were already completed from triage. In regard to the diarrhea, she has no risk factors for C diff or traveler's diarrhea. I have independently reviewed the following tests: Labs: Leukocytosis with left shift, no anemia, no electrolyte abnormality, urine not infected, passing small amount of hematuria, viral panel negative CT abdomen and pelvis:FINDINGS: Normal liver. Normal spleen. Normal kidneys. No urolithiasis or hydronephrosis. Normal adrenal glands. Normal pancreas. No visible cholelithiasis. No biliary dilation. Colonic diverticulosis without evidence of acute diverticulitis. No mucosal thickening. No evidence of obstruction. Dilated appendix measuring up to 1.3 cm in diameter, with adjacent fat stranding. No visible appendicolith. Unremarkable bladder. Anterior uterine mass measuring 1.8 cm, possibly a fibroid. No ascites. No pneumoperitoneum. No lymphadenopathy. No acute fracture. Mild degenerative changes in the spine. No abdominal aortic aneurysm. IMPRESSION: Findings consistent with acute appendicitis. Nonemergent/incidental findings above. Lab Data 02/16/25 20:25 02/16/25 20:25 Labs: Lab Results 02/16/25 Range/Units 20:25 WBC 12.7 H (4.8-10.8) X10*3/uL RBC 4.18 L (4.20-5.50) X10*6/uL Hgb 12.4 (12.0-16.0) g/dl Hct 35.6 L (37.0-47.0) % MCV 85.2 (80.0-98.0) fL MCH 29.7 (27.0-33.0) pg MCHC 34.8 (31.0-35.0) g/dl RDW 13.2 (11.0-16.0) % Plt Count 243 (160-400) X10*3/uL MPV 9.4 (9.4-12.3) fL Immature Gran % (Auto) 0.4 (0.0-0.4) % Neut % (Auto) 88.1 H (45-73) % Lymph % (Auto) 7.1 L (20-40) % [place] % (Auto) 4.1 (2-11) % Eos % (Auto) 0.1 (0-4) % Baso % (Auto) 0.2 (0-2) % Lymph # (Auto) 0.9 L (1.2-4.9) X10*3/uL [place] # (Auto) 0.5 (0.1-1.2) X10*3/uL Eos # (Auto) 0.0 (0.0-0.4) X10*3/uL Baso # (Auto) 0.0 (0.0-0.2) X10*3/uL Abs Immat Gran (auto) 0.05 H (0.00-0.03) X10*3/uL Absolute Neuts (auto) 11.2 H (2.0-8.3) x10*3/uL Absolute Nucleated RBC 0.000 (0.0-0.012) X10*3/uL Nucleated RBC % (auto) 0.0 (0.0-0.2) /100WBC Sodium 139 (135-145) mmol/L Potassium 3.9 (3.3-5.1) mmol/L Chloride 105 (96-108) mmol/L Carbon Dioxide 25 (22-29) mmol/L Anion Gap 13 (12-20) BUN 11 (9-16) mg/dL Creatinine 0.74 (0.5-1.4) mg/dL Estim Creat Clear Calc 89.4 Estimated GFR > 60 Random Glucose 167 H (60-115) mg/dL Calcium 9.3 (8.4-10.2) mg/dL Magnesium 1.7 (1.6-2.6) mg/dL Total Bilirubin 0.5 (0.0-1.0) mg/dL AST 33 H (5-31) U/L ALT 53 H (0-31) U/L Alkaline Phosphatase 84 (39-117) U/L Total Protein 7.6 (6.5-8.0) g/dL Albumin 4.7 (3.5-5.0) g/dL Lipase 13 (8-78) U/L Urine Color Yellow Urine Appearance Clear Urine pH 6.0 (5.0-9.0) Ur Specific [place] 1.025 (1.005-1.025) Urine Protein Negative (Neg-Trace) mg/dL Urine Glucose (UA) Negative (Negative) mg/dL Urine Ketones Negative (Negative) mg/dL Urine Blood Trace H (Negative) Urine Nitrite Negative (Negative) Ur Leukocyte Esterase Trace H (Negative) Urine RBC 3-5 H (0-2) /HPF Urine WBC 0-5 (0-5) /HPF Ur Squamous Epith Cells 0-2 (0-2) /HPF Urine Bacteria None Seen (None Seen) Hyaline Casts 0-2 (0-2) /LPF Influenza Type A (PCR) NEGATIVE (Negative) Influenza Type B (PCR) NEGATIVE (Negative) RSV RNA Qual (PCR) NEGATIVE (Negative) SARS-CoV-2 RNA (RT-PCR) NEGATIVE (Negative) Discharge Plan Discharge Clinical Impression: Acute appendicitis Patient Disposition: Admitted As Inpatient
[2025-02-16 20:34] LABS: MANUAL DIFF FLAG NO
[2025-02-16 20:35] LABS: Hematocrit 35.6 % (37.0-47.0); Hemoglobin 12.4 g/dl (12.0-16.0); Imm Gran Abs Auto 0.05 X10*3/uL (0.00-0.03); Imm Gran Pct Auto 0.4 % (0.0-0.4); Lymphocytes Absolute Auto 0.9 X10*3/uL (1.2-4.9); Mean Corpuscular HGB Conc 34.8 g/dl (31.0-35.0); Mean Corpuscular Hemoglobin 29.7 pg (27.0-33.0); Mean Corpuscular Volume 85.2 fL (80.0-98.0); NRBC Abs Auto 0.000 X10*3/uL (0.0-0.012); NRBC Pct Auto 0.0 /100WBC (0.0-0.2); Platelet Count 243 X10*3/uL (160-400); Red Blood Count 4.18 X10*6/uL (4.20-5.50); White Blood Count 12.7 X10*3/uL (4.8-10.8)
[2025-02-16 20:36] LABS: Appearance Urine Clear; Glucose Urine UA Negative (Negative); PH 6.0 (5.0-9.0); Specific Gravity - Urine 1.025 (1.005-1.025); UMIC TRIGGER UACC YES
[2025-02-16 20:50] LABS: Alanine Aminotransferase 53 U/L (0-31); Albumin Level 4.7 g/dL (3.5-5.0); Alkaline Phosphatase 84 U/L (39-117); Anion Gap 13 (12-20); Aspartate Amino Transferase 33 U/L (5-31); Blood Urea Nitrogen 11 mg/dL (9-16); Calcium 9.3 mg/dL (8.4-10.2); Carbon Dioxide 25 mmol/L (22-29); Chloride 105 mmol/L (96-108); Creatinine Clr Calc Pharmacy 89.4; Estimated Glomerular Filt Rate > 60; Lipase 13 U/L (8-78); Magnesium 1.7 mg/dL (1.6-2.6); Potassium 3.9 mmol/L (3.3-5.1); Sodium 139 mmol/L (135-145); Total Protein 7.6 g/dL (6.5-8.0)
[2025-02-16 21:12] LABS: Resp Syncy Virus RNA Qual PCR NEGATIVE (Negative); SARS COV2 PCR INHOUSE NEGATIVE (Negative)
[2025-02-17] VITALS (15 sets, daily range): BP systolic 92–134; BP diastolic 57–83; PULSE 68–93; RESP 14–18; TEMP 36.2–36.7; O2SAT 97–100
[2025-02-17] MEDS: iohexoL 350 MG/ML 100 ML INFUS..BTL 85 ML IV (00:51)
--- NOTE | 2025-02-17 07:39 | PC.NURSE ---
Pt A&O X4 VSS NAD patient aware of plan. IV abx infusing.
[2025-02-17] MEDS: Lactated Ringers 1,000 ML 100 ML IVCONT ×2 (07:59→18:10)
--- NOTE | 2025-02-17 08:00 | P.HPGS_ITS ---
History of Present Illness History of Present Illness Date of Service: 02/17/25 <Yvette Puri PA-C - Last Filed: 02/17/25 08:13> 02/17/25 <Elinor Zhu MD - Last Filed: 02/17/25 17:42> Chief complaint: Abdo Pain <Yvette Puri PA-C - Last Filed: 02/17/25 08:13> Narrative: Manuela Collado is a 54 year old female with PMH significant for diet controlled diabetes mellitus, hyperlipidemia, asthma who presented to the ED with complaints of RLQ abd pain. She reports she developed periumbilical pain early yesterday morning. The pain eventually migrated to the RLQ where it persisted. The pain was associated with nausea and vomiting. She had several loose bowel movements following. Due to the severity and persistence of the pain, she presented to the ED for evaluation. Work up included CBC, BMP, LFTs which was significant for a leukocytosis of 12.7. CT scan abd pelvis was obtained which showed dilated thickened appendix with adjacent fat stranding. This morning she continues to have RLQ abd pain although improved with pain meds. She denies similar episodes of prior pain, sick contacts, fevers, recent travel. She denies any prior abd surgery. Last colonoscopy 09/16 showed diverticulosis. <Yvette Puri PA-C - Last Filed: 02/17/25 08:13> Review of Systems Review of Systems: Yes all other systems are reviewed and are negative <Yvette Puri PA-C - Last Filed: 02/17/25 08:13> ENT: Denies dizziness <Yvette Puri PA-C - Last Filed: 02/17/25 08:13> Cardiovascular: Cardiovascular: Denies chest pain and Denies dyspnea <Yvette Puri PA-C - Last Filed: 02/17/25 08:13> Respiratory: Respiratory: Denies dyspnea <VU Ardon Last Filed: 02/17/25 08:13> Gastrointestinal: Gastrointestinal: Reports as per HPI <Yvette Puri PA-C - Last Filed: 02/17/25 08:13> Genitourinary: Genitourinary: Denies hematuria and Denies dysuria <Yvette Puri PA-C Last Filed: 02/17/25 08:13> Neurologic: Denies dizziness <Yvette Puri PA-C Last Filed: 02/17/25 08:13> [facility] Past Medical History Medical History: Medical History History of mammogram (~11/2023) Pure hypercholesterolemia, unspecified Hyperlipidemia LDL goal <100 Submandibular lymphadenopathy Diabetes mellitus History of depression Asthma <VU Ardon Last Filed: 02/17/25 08:13> Family History Family History: Family History Father Dementia Diabetes FH: HTN (hypertension) Other Mental health disorder <Yvette Puri PA-C Last Filed: 02/17/25 08:13> Surgical History Surgical History: Surgical History History of colonoscopy (~09/18/24) H/O lymph node excision (10/08/24) H/O elbow surgery H/O Spinal surgery <VU Ardon Last Filed: 02/17/25 08:13> Social History Social History: Social History Household Members: Spouse Housing: House Are you a primary career development director to a significant other at home: No Do you presently have visiting nurse or other home services: No Alcohol intake: current Alcohol intake frequency: holidays/special occasions only Patient Tobacco Use Status: Former Tobacco user Smoked in Last 30 Days: No e-Cigarette/Vaping Use: Never Used Second Hand Smoke Exposure: Yes Use of substances other than those prescribed or required for medical reasons: No Have you been hit, kicked, punched, or otherwise hurt by someone within the past year? 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 [employer] Sexual orientation: Straight/Heterosexual Gender identity: Female Cognitive needs: No Hearing needs: No Vision needs: Yes (Glasses) <Yvette Puri PA-C - Last Filed: 02/17/25 08:13> Meds Allergies/Adverse reactions: Allergies Allergy/AdvReac Type Severity Reaction Status Date / Time fexofenadine (From Muriel-D Allergy Intermediate Worsen Verified 02/16/25 20:09 12 Hour) cold symtoms fluticasone (From Flonase) Allergy Intermediate More Verified 02/16/25 20:09 congested pseudoephedrine (From Allergy Intermediate Worsen Verified 02/16/25 20:09 Muriel-D 12 Hour) cold symtoms metformin AdvReac Intermediate lower Verified 02/16/25 20:09 blood sugar SEDATIVE MED AdvReac Intermediate BURNING Uncoded 01/01/25 09:04 SENSATION <Yvette Puri PA-C - Last Filed: 02/17/25 08:13> Active Medications: Current Medications Acetaminophen (Acetaminophen 325 Mg Tablet) 650 mg PO Q6H PRN PRN Reason: Pain, Mild 1-3,fever,headache Piperacillin Sod/Tazobactam (Sod 3.375 gm/ Sodium Chloride) 50 mls @ 100 mls/hr IV Q6H [facility] Last Admin: 02/17/25 07:36 Dose: 100 mls/hr Lactated Ringer's (Lr) 1,000 mls @ 100 mls/hr IVCONT .Q10H [facility] Last Admin: 02/17/25 07:59 Dose: 100 mls/hr Melatonin (Melatonin 3 Mg Tablet) 6 mg PO BEDTIME PRN PRN Reason: Insomnia Morphine Sulfate (Morphine Sulfate 2 Mg/Ml Cartridge) 2 mg IVPUSH RQ4H PRN; Protocol PRN Reason: Pain, Severe (Pain Scale 7-10) Ondansetron HCl (Ondansetron Hcl 4 Mg/2 Ml Vial) 4 mg IVPUSH Q8H PRN PRN Reason: Nausea and Vomiting Sodium Chloride (0.9 % Sodium Chloride Flush 3 Ml Syringe) [facility] Last Admin: 02/17/25 07:59 Dose: Not Given <VU Ardon Last Filed: 02/17/25 08:13> Home medications: Home Medications ?Medication ?Instructions ?Recorded ?Confirmed ?Last Taken ?Type blood sugar diagnostic (True 08/21/24 01/01/25 Unknow n History Metrix Glucose Test Strip) blood-glucose meter (True Metrix 08/21/24 01/01/25 Un known History Glucose Meter) lancets 28 gauge (Easy Touch 08/21/24 01/01/25 Unknow n History Safety Lancets) multivitamin 1 tab PO DAILY 02/17/25 07/2 04/1602/16/25 History <VU Ardon Last Filed: 02/17/25 08:13> Physical Exam Vital Signs: Vital Signs: Last Vital Signs Temp 97.8 F 02/17/25 06:25 Pulse 86 02/17/25 06:25 Resp 14 02/17/25 06:25 BP 92/61 02/17/25 06:25 Pulse Ox 98 02/17/25 06:25 O2 Del Method Room Air 02/17/25 06:25 BMI result Body Mass Index 26.3 <VU Ardon Last Filed: 02/17/25 08:13> Const: General: comfortable, no acute distress and alert <VU Ardon Last Filed: 02/17/25 08:13> Orientation/consciousness: patient oriented x3 <VU Ardon Last Filed: 02/17/25 08:13> Resp: Effort & Inspection: normal respiratory effort <VU Ardon Last Filed: 02/17/25 08:13> Cardio: Rate: regular rate <VU Ardon Last Filed: 02/17/25 08:13> GI: Inspection: Yes normal to inspection, No distended and No scar <VU Ardon Filed: 02/17/25 08:13> Palpation (GI): Soft to palpation, Tenderness to palpation present (GI) (moderate RLQ) Rovsing's sign positive, no guarding and not rigid <VU Ardon Last Filed: 02/17/25 08:13> Percussion: Yes normal to percussion <VU Ardon Last Filed: 02/17/25 08:13> Skin: General skin exam: no rashes or lesions noted <VU Ardon Last Filed: 02/17/25 08:13> Neuro: General: patient oriented x3 and moves all extremities <VU Ardon Filed: 02/17/25 08:13> Results Results Labs: Short CBC 02/16/25 Range/Units 20:25 WBC 12.7 H (4.8-10.8) X10*3/uL Hgb 12.4 (12.0-16.0) g/dl Hct 35.6 L (37.0-47.0) % Plt Count 243 (160-400) X10*3/uL BMP 02/16/25 20:25 Sodium 139 Potassium 3.9 Chloride 105 Carbon Dioxide 25 BUN 11 Creatinine 0.74 Calcium 9.3 Liver Function 02/16/25 Range/Units 20:25 Total Bilirubin 0.5 (0.0-1.0) mg/dL AST 33 H (5-31) U/L ALT 53 H (0-31) U/L Alkaline Phosphatase 84 (39-117) U/L Albumin 4.7 (3.5-5.0) g/dL Urine 02/16/25 Range/Units 20:25 Urine Color Yellow Urine Appearance Clear Urine pH 6.0 (5.0-9.0) Ur Specific [place] 1.025 (1.005-1.025) Urine Protein Negative (Neg-Trace) mg/dL Urine Glucose (UA) Negative (Negative) mg/dL <VU Ardon Filed: 02/17/25 08:13> Abdomen CT scan report/results: report reviewed and image reviewed <VU Ardon Last Filed: 02/17/25 08:13> Additional studies: labs reviewed <Yvette Puri PA-C - Last Filed: 02/17/25 08:13> Assessment and Plan (1) Acute appendicitis: Status: Acute <Yvette Puri PA-C - Last Filed: 02/17/25 08:13> 54 year old female with PMH significant for diet controlled diabetes mellitus, hyperlipidemia, asthma who presented to the ED with complaints of RLQ abd pain found to have leukocytosis and CT scan showing dilated, thickened appendix with surrounding fat stranding. Clinical picture consistent with acute appendicitis. Risks, benefits, alternatives of laparoscopic possible open appendectomy were reviewed with the patient and included but not limited to bleeding, infection, numbness, pain, scarring, bowel or bladder injury or staple line leak and the patient wishes to proceed. <Yvette Puri PA-C - Last Filed: 02/17/25 08:13> 54 year old female with PMH significant for diet controlled diabetes mellitus, hyperlipidemia, asthma who presented to the ED with complaints of RLQ abd pain found to have leukocytosis and CT scan showing dilated, thickened appendix with surrounding fat stranding. Clinical picture consistent with acute appendicitis. Risks, benefits, alternatives of laparoscopic possible open appendectomy were reviewed with the patient and included but not limited to bleeding, infection, numbness, pain, scarring, bowel or bladder injury or staple line leak and the patient wishes to proceed. Patient is a 54-year-old female who was seen and examined independently came into the emergency room with abdominal pain in the periumbilical radiating down to the right lower quadrant and settling here now in the last 16 hours abdomen is otherwise benign CT scan shows findings consistent with acute inflammation of the appendix consistent with early appendicitis. As a result plan is to carry out laparoscopic appendectomy. She understands and agrees with the above plan risks and benefits discussed with her <Elinor Zhu MD - Last Filed: 02/17/25 17:42> Quality Stroke Does the patient have a stroke diagnosis?: No <VU Ardon Last Filed: 02/17/25 08:13> VTE Prior VTE?: No <VU Ardon Last Filed: 02/17/25 08:13> VTE Risk Level:: Surgical - low <Yvette Puri PA-C - Last Filed: 02/17/25 08:13> VTE Device Contraindication: N/A - Device Ordered <Yvette Puri PA-C - Last Filed: 02/17/25 08:13> VTE Drug Contraindication: Treatment Not Indicated <Yvette Puri PA-C - Last Filed: 02/17/25 08:13> Procedures Date of Service Date of Service: 02/17/25 <Yvette Puri PA-C - Last Filed: 02/17/25 08:13> 02/17/25 <Elinor Zhu MD - Last Filed: 02/17/25 17:42>
--- NOTE | 2025-02-17 08:27 | PHA.MEDREC ---
Addendum entered by Florian Eller PharmD 02/17/25 08:30: reviewed Original Note: Pharmacy Consult ? Medication Reconciliation Pharmacy has completed the medication reconciliation. Patient states she is only taking a multivitamin tablet daily.
--- NOTE | 2025-02-17 11:38 | HO.ANESPROP2 ---
Documented by User: Rafaela Menendez NP 02/17/25 11:55 HPI - Anesthesia Eval Consult details Narrative: 54 yr old female for Appendectomy Laparoscopic No recent illness since December 2024 since resolved No CP/SOB with moderate exercise Type 2 DM: diet controlled s/p lymph node excision 09/2024 [facility] Active Problems Active Problems: All Active Problems Acute appendicitis (Acute) Pure hypercholesterolemia, unspecified (Acute) Hyperlipidemia LDL goal <100 (Acute) Drooping of mouth (Acute) Submandibular lymphadenopathy (Acute) Diabetes mellitus (Acute) Upper respiratory tract infection (Acute) Well woman exam with routine gynecological exam (Acute) Past Medical History Medical History History of mammogram (~11/2023) Pure hypercholesterolemia, unspecified Hyperlipidemia LDL goal <100 Submandibular lymphadenopathy Diabetes mellitus History of depression Asthma Patient : No (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) Family History Family History Father Dementia Diabetes FH: HTN (hypertension) Other Mental health disorder Family history of problems with anesthesia: No Surgical History Surgical History History of colonoscopy (~09/18/24) H/O lymph node excision (10/08/24) H/O elbow surgery H/O Spinal surgery History of Problems with Anesthesia: No Social History Social History Household Members: Spouse Housing: House Are you a primary progressive care unit registered nurse to a significant other at home: No Do you presently have visiting nurse or other home services: No Alcohol intake: current Alcohol intake frequency: holidays/special occasions only Patient Tobacco Use Status: Former Tobacco user Smoked in Last 30 Days: No e-Cigarette/Vaping Use: Never Used Second Hand Smoke Exposure: Yes Use of substances other than those prescribed or required for medical reasons: No Have you been hit, kicked, punched, or otherwise hurt by someone within the past year? 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 [employer] Sexual orientation: Straight/Heterosexual Gender identity: Female Cognitive needs: No Hearing needs: No Vision needs: Yes (Glasses) Meds Allergies Allergy/AdvReac Type Severity Reaction Status Date / Time fexofenadine (From Muriel-D Allergy Intermediate Worsen Verified 02/16/25 20:09 12 Hour) cold symtoms fluticasone (From Flonase) Allergy Intermediate More Verified 02/16/25 20:09 congested pseudoephedrine (From Allergy Intermediate Worsen Verified 02/16/25 20:09 Muriel-D 12 Hour) cold symtoms metformin AdvReac Intermediate lower Verified 02/16/25 20:09 blood sugar SEDATIVE MED AdvReac Intermediate BURNING Uncoded 01/01/25 09:04 SENSATION Active Medications: Current Medications Acetaminophen (Acetaminophen 325 Mg Tablet) 650 mg PO Q6H PRN PRN Reason: Pain, Mild 1-3,fever,headache Piperacillin Sod/Tazobactam (Sod 3.375 gm/ Sodium Chloride) 50 mls @ 100 mls/hr IV Q6H [facility] Last Infusion: 02/17/25 08:23 Dose: Infused Lactated Ringer's (Lr) 1,000 mls @ 100 mls/hr IVCONT .Q10H [facility] Last Admin: 02/17/25 07:59 Dose: 100 mls/hr Melatonin (Melatonin 3 Mg Tablet) 6 mg PO BEDTIME PRN PRN Reason: Insomnia Morphine Sulfate (Morphine Sulfate 2 Mg/Ml Cartridge) 2 mg IVPUSH RQ4H PRN; Protocol PRN Reason: Pain, Severe (Pain Scale 7-10) Last Admin: 02/17/25 10:12 Dose: 2 mg Ondansetron HCl (Ondansetron Hcl 4 Mg/2 Ml Vial) 4 mg IVPUSH Q8H PRN PRN Reason: Nausea and Vomiting Sodium Chloride (0.9 % Sodium Chloride Flush 3 Ml Syringe) 3 ml IVFLUSH QSHIFT SANDRA Last Admin: 02/17/25 07:59 Dose: Not Given Home Medications ?Medication ?Instructions ?Recorded ?Confirmed ?Last Taken ?Type blood sugar diagnostic (True 08/21/24 01/01/25 Unknown History Metrix Glucose Test Strip) blood-glucose meter (True Metrix 08/21/24 01/01/25 Unknown History Glucose Meter) lancets 28 gauge (Easy Touch 08/21/24 01/01/25 Unknown History Safety Lancets) multivitamin 1 tab PO DAILY 02/17/25 02/17/25 02/16/25 History Exam Height,Weight and Vital Signs: Height 5 ft 6 in Weight 74 kg Last Vital Signs Temp 98.1 F 02/17/25 10:08 Pulse 74 02/17/25 10:08 Resp 16 02/17/25 10:12 BP 113/69 02/17/25 10:08 Pulse Ox 100 02/17/25 10:08 O2 Del Method Room Air 02/17/25 10:08 Pertinent Lab Results Pertinent Lab Results: Laboratory Tests 02/16/25 20:25 WBC 12.7 H RBC 4.18 L Hgb 12.4 Hct 35.6 L MCV 85.2 MCH 29.7 MCHC 34.8 RDW 13.2 Plt Count 243 MPV 9.4 Immature Gran % (Auto) 0.4 Neut % (Auto) 88.1 H Lymph % (Auto) 7.1 L Turner % (Auto) 4.1 Eos % (Auto) 0.1 Baso % (Auto) 0.2 Lymph # (Auto) 0.9 L Turner # (Auto) 0.5 Eos # (Auto) 0.0 Baso # (Auto) 0.0 Abs Immat Gran (auto) 0.05 H Absolute Neuts (auto) 11.2 H Absolute Nucleated RBC 0.000 Nucleated RBC % (auto) 0.0 Sodium 139 Potassium 3.9 Chloride 105 Carbon Dioxide 25 Anion Gap 13 BUN 11 Creatinine 0.74 Estim Creat Clear Calc 89.4 Estimated GFR > 60 Random Glucose 167 H Calcium 9.3 Magnesium 1.7 Total Bilirubin 0.5 AST 33 H ALT 53 H Alkaline Phosphatase 84 Total Protein 7.6 Albumin 4.7 Lipase 13 Urine Color Yellow Urine Appearance Clear Urine pH 6.0 Ur Specific [place] 1.025 Urine Protein Negative Urine Glucose (UA) Negative Urine Ketones Negative Urine Blood Trace H Urine Nitrite Negative Ur Leukocyte Esterase Trace H Urine RBC 3-5 H Urine WBC 0-5 Ur Squamous Epith Cells 0-2 Urine Bacteria None Seen Hyaline Casts 0-2 Influenza Type A (PCR) NEGATIVE Influenza Type B (PCR) NEGATIVE RSV RNA Qual (PCR) NEGATIVE SARS-CoV-2 RNA (RT-PCR) NEGATIVE Airway Mallampati Class: III TM Dist: >3cm Neck ROM: Full Loose/Missing/Broken Teeth: No Heart: RRR Lungs: CTAB Assessment and Plan Final Anesthetic Review Family History of Problems with Anesthesia: No History of Problems with Anesthesia: No Documented by User: Marty Torres MD 02/17/25 16:50 [facility] Past Medical History Medical History History of mammogram (~11/2023) Pure hypercholesterolemia, unspecified Hyperlipidemia LDL goal <100 Submandibular lymphadenopathy Diabetes mellitus History of depression Asthma Family History Family History Father Dementia Diabetes FH: HTN (hypertension) Other Mental health disorder Surgical History Surgical History History of colonoscopy (~09/18/24) H/O lymph node excision (10/08/24) H/O elbow surgery H/O Spinal surgery Social History Social History Household Members: Spouse Housing: House Are you a primary progressive care unit registered nurse to a significant other at home: No Do you presently have visiting nurse or other home services: No Alcohol intake: current Alcohol intake frequency: holidays/special occasions only Patient Tobacco Use Status: Former Tobacco user Smoked in Last 30 Days: No e-Cigarette/Vaping Use: Never Used Second Hand Smoke Exposure: Yes Use of substances other than those prescribed or required for medical reasons: No Have you been hit, kicked, punched, or otherwise hurt by someone within the past year? 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 [employer] Sexual orientation: Straight/Heterosexual Gender identity: Female Cognitive needs: No Hearing needs: No Vision needs: Yes (Glasses) Meds Allergies Allergy/AdvReac Type Severity Reaction Status Date / Time fexofenadine (From Muriel-D Allergy Intermediate Worsen Verified 02/16/25 20:09 12 Hour) cold symtoms fluticasone (From Flonase) Allergy Intermediate More Verified 02/16/25 20:09 congested pseudoephedrine (From Allergy Intermediate Worsen Verified 02/16/25 20:09 Muriel-D 12 Hour) cold symtoms metformin AdvReac Intermediate lower Verified 02/16/25 20:09 blood sugar SEDATIVE MED AdvReac Intermediate BURNING Uncoded 01/01/25 09:04 SENSATION Home Medications ?Medication ?Instructions ?Recorded ?Confirmed ?Last Taken ?Type blood sugar diagnostic (True 08/21/24 01/01/25 Unknown History Metrix Glucose Test Strip) blood-glucose meter (True Metrix 08/21/24 01/01/25 Unknown History Glucose Meter) lancets 28 gauge (Easy Touch 08/21/24 01/01/25 Unknown History Safety Lancets) multivitamin 1 tab PO DAILY 02/17/25 02/17/25 02/16/25 History Assessment and Plan Assessment Anesthesia Assessment: Anesthesia Plan Discussed Final Anesthetic Review NPO: Yes ASA Class: II Final Preanesthetic Review: No Changes in Pt Med Stat, Meds/Allgs Chart Reviewed, Consent Obtained/Reviewed and Anes Risks/Benef Reviewed Patient Risk: Low Procedure Risk: Low Anesthetic Plan Anesthetic Plan: GA Disposition: Standard PACU
[2025-02-17 13:30] LABS: Glucose, Whole Blood 81 mg/dL (60-115)
--- NOTE | 2025-02-17 13:37 | PC.NURSE ---
primary RN Joanna notified of pt POC 81
--- NOTE | 2025-02-17 14:55 | MHC.CM.PN ---
pt lives with her will not need services when dcd she is working nd independent
[2025-02-17] MEDS: Lactated Ringers 1,000 ML 50 ML IVCONT (15:12)
--- NOTE | 2025-02-17 16:04 | PC.NURSE ---
report given to johny aden and patel aden
--- NOTE | 2025-02-17 17:42 | P.OP_ITS ---
Operative Note Operative Note Date of Service: 02/17/25 Narrative: Preop diagnosis--acute appendicitis Postop diagnosis--acute appendicitis Procedure done--laparoscopic appendectomy Surgeon--Marko Anesthesia--general endotracheal tube anesthesia History-patient is a 54-year-old female came in with right lower quadrant tenderness white count little elevated and CT scan showing findings consistent with acutely inflamed appendix patient agrees to go to the operative room for laparoscopic appendectomy. Findings--acutely inflamed appendix Procedure-- Patient was brought to the operative room under Anesthesia guidance was intubated. She had compression stockings placed before induction received preoperative antibiotics on a scheduled basis. Her abdomen was prepped and draped in standard surgical fashion. An infraumbilical incision was created after numbing up the area with a 0.5% Marcaine with epinephrine. Dissection was carried down to the anterior abdominal wall fascia with Jin's the anterior abdominal wall was grasped and transected with the 11 blade. 0 Vicryl pursestring suture was used to secure the Mireles trocar and pneumoperitoneum established to 15 mmHg pressure. Two 5 mm ports were then placed under direct visualization using local 1 in the suprapubic area and 1 in the left lower quadrant area. Patient was positioned little bit left side down. The appendix and cecum were identified in the right lower quadrant and the appendix looked thickened and a little inflamed with a little bit of some exudate at the mesenteric base. The [place] was used to dissect at the base of the appendix in the Endo-[place]YEN[place] 45 purple load was fired at the base of the appendix cecum. Using the LigaSure the mesentery was taken down and the appendix placed in the endo bag and removed from the infraumbilical port site. Pneumoperitoneum was then reestablished. The staple site and the mesentery was examined we will suctioned and irrigation in the right lower quadrant area. All looked good. Ports were then removed under direct visualization and the infraumbilical pursestring approximated. More local was used. 4-0 Monocryl was used in an interrupted subcuticular fashion to approximate the skin edge with Steri-Strips and dry sterile dressings and Tegaderm was placed over the incisions. At the end of the case all sponge instrument needle counts were correct estimated blood loss was minimal. Specimens sent was the appendix. Patient was extubated ret urned stable to recovery room.
[2025-02-17 18:20] LABS: Glucose, Whole Blood 97 mg/dL (60-115)
[2025-02-18 03:51] VITALS: BP 100/51; PULSE 76; RESP 18; TEMP 36.3; O2SAT 98
[2025-02-18] MEDS: Lactated Ringers 1,000 ML 100 ML IVCONT (05:08)
[2025-02-18] MEDS: oxyCODONE HCl Immed Release 5 MG TABLET 10 MG PO (05:15)
[2025-02-18 07:29] VITALS: BP 109/67; PULSE 65; RESP 16; TEMP 36.5; O2SAT 97
--- NOTE | 2025-02-18 07:34 | P.PNGS_ITS ---
Subjective Subjective Date of Service: 02/18/25 <Yvette Puri PA-C - Last Filed: 02/18/25 07:37> 02/18/25 <Cristhian San MD - Last Filed: 02/18/25 11:41> Interval history: Feels well, mild incisional pain mostly at the umbilicus. OOB and ambulating, showered already this morning. Tolerating solid diet. Wants to go home. <Yvette Puri PA-C - Last Filed: 02/18/25 07:37> Physical Exam 2 Vital Signs: Vital Signs: Last Vital Signs Temp 97.7 F 02/18/25 07:29 Pulse 65 02/18/25 07:29 Resp 16 02/18/25 07:29 BP 109/67 02/18/25 07:29 Pulse Ox 97 02/18/25 07:29 O2 Del Method Room Air 02/18/25 07:29 BMI result Body Mass Index 26.3 <Yvette Puri PA-C - Last Filed: 02/18/25 07:37> Const: General: comfortable, no acute distress and alert <Yvette Puri PA-C - Last Filed: 02/18/25 07:37> Orientation/consciousness: patient oriented x3 <Yvette Puri PA-C - Last Filed: 02/18/25 07:37> Resp: Effort & Inspection: normal respiratory effort <Yvette Puri PA-C - Last Filed: 02/18/25 07:37> GI: Inspection: No distended and Yes incision (intact, umbilical dressing saturated and changed ) <Yvette Puri PA-C - Last Filed: 02/18/25 07:37> Palpation (GI): Soft to palpation, Tenderness to palpation present (GI) (mild incisional) and no guarding <VU Ardon Last Filed: 02/18/25 07:37> Percussion: Yes normal to percussion <Yvette Puri PA-C - Last Filed: 02/18/25 07:37> Skin: General skin exam: no rashes or lesions noted <Yvette Puri PA-C - Last Filed: 02/18/25 07:37> Neuro: General: patient oriented x3 and moves all extremities <Yvette Puri PA-C - Last Filed: 02/18/25 07:37> Objective Data Active Medications Acetaminophen (Acetaminophen 325 Mg Tablet) 650 mg PO Q6H PRN PRN Reason: Pain, Mild 1-3,fever,headache Piperacillin Sod/Tazobactam (Sod 3.375 gm/ Sodium Chloride) 50 mls @ 100 mls/hr IV Q6H [facility] Last Infusion: 02/18/25 02:17 Dose: Infused Documented By: JOANN Lactated Ringer's (Lr) 1,000 mls @ 100 mls/hr IVCONT .Q10H [facility] Last Infusion: 02/18/25 07:23 Dose: 100 mls/hr Documented By: YOVANA Lactated Ringer's (Lr) 1,000 mls @ 50 mls/hr IVCONT .Q20H [facility] Last Infusion: 02/18/25 03:47 Dose: 0 mls/hr Documented By: JOANN Melatonin (Melatonin 3 Mg Tablet) 6 mg PO BEDTIME PRN PRN Reason: Insomnia Morphine Sulfate (Morphine Sulfate 2 Mg/Ml Cartridge) 2 mg IVPUSH RQ4H PRN; Protocol PRN Reason: Pain, Severe (Pain Scale 7-10) Last Admin: 02/17/25 10:12 Dose: 2 mg Documented By: RUPINDER Naloxone HCl (Naloxone Hcl 0.4 Mg/Ml Vial) 0.04 mg IVPUSH Q5M PRN PRN Reason: Excessive sedation or RR < 8 Ondansetron HCl (Ondansetron Hcl 4 Mg/2 Ml Vial) 4 mg IVPUSH Q8H PRN PRN Reason: Nausea and Vomiting Oxycodone HCl (Oxycodone Hcl Immed Release 5 Mg Tablet) 5 mg PO Q4H PRN PRN Reason: Pain, Mild (Pain Scale 1-3) Oxycodone HCl (Oxycodone Hcl Immed Release 5 Mg Tablet) 10 mg PO Q4H PRN PRN Reason: Pain, Moderate(Pain Scale 4-6) Last Admin: 02/18/25 05:15 Dose: 10 mg Documented By: JOANN Sodium Chloride (0.9 % Sodium Chloride Flush 3 Ml Syringe) 3 ml IVFLUSH QSHIFT SANDRA Last Admin: 02/18/25 00:06 Dose: Not Given Documented By: JOANN Non-Admin Reason: IV Running <Yvette Puri PA-C - Last Filed: 02/18/25 07:37> Labs CBC & Chem 7: 02/16/25 20:25 02/16/25 20:25 <Yvette Puri PA-C - Last Filed: 02/18/25 07:37> Labs: Laboratory Results - last 24 hr 02/17/25 02/17/25 13:27 18:12 POC Glucose 81 97 <Yvette Puri PA-C - Last Filed: 02/18/25 07:37> Procedures Date of Service Date of Service: 02/18/25 <Yvette Puri PA-C - Last Filed: 02/18/25 07:37> 02/18/25 <Cristhian San MD - Last Filed: 02/18/25 11:41> Progress Note: A&P Assessment and plan (1) Acute appendicitis: Status: Acute <Yvette Puri PA-C - Last Filed: 02/18/25 07:37> (2) S/P laparoscopic appendectomy: Status: Acute <Yvette Puri PA-C - Last Filed: 02/18/25 07:37> Assessment and Plan: POD #1 s/p lap appy for uncomplicated appendicitis. Doing well post op, comfortable, tolerating diet. VSS. Abd exam benign with clean and intact dressings, appropriate post op tenderness. Stable for dc to home today. Patient comfortable with plan, f/u in office in 1 week. <Yvette Puri PA-C - Last Filed: 02/18/25 07:37> POD #1 s/p lap appy for uncomplicated appendicitis. Doing well post op, comfortable, tolerating diet. VSS. Abd exam benign with clean and intact dressings, appropriate post op tenderness. Stable for dc to home today. Patient comfortable with plan, f/u in office in 1 week. Patient seen and examined, doing quite well. Agree with the above assessment and plan. Discharge to home and follow up in one week. <Cristhian San MD - Last Filed: 02/18/25 11:41> Time Spent With Patient Time: Total time managing care of this patient today ____ minutes. <Yvette Puri PA-C - Last Filed: 02/18/25 07:37> Quality Stroke Does the patient have a stroke diagnosis?: No <Yvette Puri PA-C - Last Filed: 02/18/25 07:37> VTE Prior VTE?: No <Yvette Puri PA-C - Last Filed: 02/18/25 07:37> VTE Risk Level:: Surgical - low <Yvette Puri PA-C - Last Filed: 02/18/25 07:37> VTE Device Contraindication: N/A - Device Ordered <Yvette Puri PA-C - Last Filed: 02/18/25 07:37> VTE Drug Contraindication: Treatment Not Indicated <Yvette Puri PA-C - Last Filed: 02/18/25 07:37>
--- NOTE | 2025-02-18 08:50 | MHC.CM.PN ---
pt dcd home self care
[2025-02-18 09:03] VITALS: BP 116/68; PULSE 74; RESP 16; TEMP 36.8; O2SAT 100
--- NOTE | 2025-02-18 09:11 | HO.POSTANES ---
Post Anesthesia Evaluation Post Anesthesia Evaluation Date of Service: 02/18/25 Vital Signs: Vital Signs Temp Pulse Resp BP Pulse Ox O2 Del Method 02/18/25 09:03 98.2 F 74 16 116/68 100 Room Air 02/18/25 07:29 97.7 F 65 16 109/67 97 Room Air 02/18/25 03:51 97.3 F 76 18 100/51 L 98 Room Air 02/17/25 23:29 97.4 F 88 18 98/57 L 97 Room Air Anesthesia: General Mental Status: Awake Pain Control: Satisfactory Nausea/Vomiting: None Hydration: Adequate Anesthesia-Related Issues: No Anes. Related Issues
[2025-02-18 10:34] VITALS: BP 126/71; PULSE 75; RESP 14; TEMP 36.2; O2SAT 100
--- NOTE | 2025-02-18 11:39 | PM.DS ---
DS: Providers Provider Date of Service: 02/18/25 Date of admission: 02/17/25 02:52 Date of discharge: 02/18/25 Primary care physician: Clement Rolle MD Attending physician on admission: Elinor Zhu Attending physician on discharge: Cristhian San DS: Diagnosis Discharge Diagnosis (1) Acute appendicitis: Status: Acute (2) S/P laparoscopic appendectomy: Status: Acute DS: Summary Hospital Course Hospital Course: HPI AT ADMISSION: Manuela Collado is a 54 year old female with PMH significant for diet controlled diabetes mellitus, hyperlipidemia, asthma who presented to the ED with complaints of RLQ abd pain. She reports she developed periumbilical pain early yesterday morning. The pain eventually migrated to the RLQ where it persisted. The pain was associated with nausea and vomiting. She had several loose bowel movements following. Due to the severity and persistence of the pain, she presented to the ED for evaluation. Work up included CBC, BMP, LFTs which was significant for a leukocytosis of 12.7. CT scan abd pelvis was obtained which showed dilated thickened appendix with adjacent fat stranding. This morning she continues to have RLQ abd pain although improved with pain meds. She denies similar episodes of prior pain, sick contacts, fevers, recent travel. She denies any prior abd surgery. Last colonoscopy 09/16 showed diverticulosis. HOSPITAL COURSE: The patient was admitted to the surgical service for further treatment of the acute appendicitis. She elected to proceed with laparoscopic appendectomy. She was added onto the OR schedule for that day. On 02/17/25, a laparoscopic appendectomy was performed by Dr. Zhu without complication. The patient tolerated the procedure well. She had an uncomplicated recovery course. On POD #1, she felt well and was tolerating a solid diet without nausea or vomiting, had good pain control and was ambulating without difficulty. She was hemodynamically stable. Her abdomen was benign with appropriate post op tenderness and clean and intact dressings. She felt ready for discharge. She was discharged to home on 02/18/25 in stable condition. She is to follow up in the office in 1 week. Status at Discharge Functional status at discharge: independent ambulation Overall status at discharge: patient is progressing back to baseline Time Attestation Discharge Coordination Time (in mins): 25 Quality: Safe Use of Opioids Does Pt have an Active Cancer Diagnosis on the Problem List?: No Quality: Stroke Does the patient have a stroke diagnosis?: No Physical Exam Vital Signs: Vital Signs: Last Vital Signs Temp 97.2 F 02/18/25 10:34 Pulse 75 02/18/25 10:34 Resp 14 02/18/25 10:34 BP 126/71 02/18/25 10:34 Pulse Ox 100 02/18/25 10:34 O2 Del Method Room Air 02/18/25 10:34 BMI result Body Mass Index 26.3 Const: General: comfortable, no acute distress and alert Orientation/consciousness: patient oriented x3 Resp: Effort & Inspection: normal respiratory effort GI: Inspection: No distended and Yes incision (dressings intact ) Palpation (GI): Soft to palpation, Tenderness to palpation present (GI) (mild incisional) and no guarding Skin: General skin exam: no rashes or lesions noted Neuro: General: patient oriented x3 and moves all extremities DS: Data Data Completed and Pending Pending studies at discharge: Pending at discharge 02/17/25 17:11 Surgical [PTH] Routine Labs on day of discharge: Laboratory Results - last 24 hr 02/17/25 02/17/25 13:27 18:12 POC Glucose 81 97 Discharge Plan Discharge Anticipated Discharge Date/Time: 02/18/25 07:10 Patient Disposition: Home, Self-Care Discharge Diagnosis: acute appendicitis, s/p laparoscopic appendectomy Referrals: Cristhian San MD [Physician, General Surgery] - 1 Week Clement Rolle MD [Primary Care Provider, Internal Medicine] - 1 Week Discharge Medications: New docusate sodium [Colace] 100 mg capsule 100 mg PO BID PRN (Reason: constipation) Qty: 30 0RF oxycodone 5 mg tablet 5 mg PO Q4H PRN (Reason: pain (scale score 7-10)) Qty: 24 0RF Rx Instructions: Partial Fill upon patient request. Continued multivitamin Tablet 1 tab PO DAILY (DME) True Metrix Glucose Test Strip Strip See Rx Instructions .Route Rx Instructions: twice a day (DME) blood-glucose meter [True Metrix Glucose Meter] Misc See Rx Instructions .Route Rx Instructions: Test blood sugar twice a day (DME) lancets [Easy Touch Safety Lancets] 28 gauge misc See Rx Instructions .Route Rx Instructions: test blood sugar twice a day Discharge Orders: Discharge Order (Routine); Ordered 02/18/25 Ordered By: Yvette Puri Diet: Advance to usual diet Activity on Discharge: No heavy lifting Stand Alone Forms: Patient Portal Discharge page Print Language: Latvian Activity Restrictions/Additional Instructions: If the incision area is tender, you may apply an ice pack for short intervals (No more than 20 minutes on, followed by at least 20 minutes off). Do not apply heat. Do not use creams, lotions, or topical antibiotics. Ok to shower. Remove clear dressings 3 days following your procedure. You have steri strips (small white strips) covering your incision- these will fall off ~1 week. No heavy lifting (>10lbs) or strenuous activity! Take Tylenol Extra-strength 1-2 tabs every 6 hours for the first day, then as needed. Oxycodone every 6-8 hours as needed for pain. Colace 100 mg every day as needed for constipation. Follow up in office with Dr. San in 1 week. ([phone]) Call Your Doctor If: -Your temperature exceeds 101.5? F -You experience excessive pain or swelling -You have an unexpected reaction to medication -You have excessive bleeding -You experience continued vomiting/nausea -Your incision begins to separate -Your incision shows signs of infection such as increased redness, swelling, excessive pain, drainage (light blood or clear fluid is normal) or heat Care Plan Goals: Return to baseline health and resume normal activities following recovery period. Health Concerns: acute appendicitis Plan of Treatment: s/p laparoscopic appendectomy Pain control Follow up in office in 1 week Assessment: Doing well post op Discharge Date/Time: 02/18/25 10:26
== END 2025-02-18 10:26 | disposition home or self-care (01) | DRG 234 ==
LOC: HO.ED 02-17 03:24 → HO.EDOVER 02-17 03:36 → HO.S3 02-17 13:36
PROVIDERS: Registered Nurse Emergency; Admitting Provider Surgery; Emergency Provider Emergency Medicine; PCP Internal Medicine; Visit Provider Surgery
PROC: 0DTJ4ZZ Resection of Appendix, Percutaneous Endoscopic Approach (ICD-10-PCS; CPT 44970; principal; 2025-02-17 17:10)
DX: K35.80 Unspecified acute appendicitis (principal); E11.9 Type 2 diabetes mellitus without complications; E78.5 Hyperlipidemia, unspecified; Z20.822 Contact with and (suspected) exposure to COVID-19; Z79.899 Other long term (current) drug therapy
CPT/HCPCS: 44970; 74177; 80053; 81001; 82947; 83690; 83735; 85025; 87637; 88304; 99285; J0131; J1100; J1171; J2003; J2270; J2405; J2543; J2704; J3010; J7120; Q9967

== ENCOUNTER → 2025-02-17 00:23 | Outpatient (BNV) | payer BC, SELFPAY | PROVIDERS: Emergency Provider Emergency Medicine; PCP Internal Medicine; Visit Provider Radiology Diagnostic Radiology | DX: K57.30 Diverticulosis of large intestine without perforation or abscess without bleeding (principal) | CPT/HCPCS: 74177 ==

== ENCOUNTER → 2025-02-17 02:52 | Outpatient (BNV) | payer BC, SELFPAY | PROVIDERS: Admitting Provider Surgery; Emergency Provider Emergency Medicine; PCP Internal Medicine; Visit Provider Physician Assistant Surgical | DX: K35.80 Unspecified acute appendicitis (principal); Z90.49 Acquired absence of other specified parts of digestive tract | CPT/HCPCS: 44970; 99024; 99222; 99499 ==

== ENCOUNTER 2025-02-20 12:53 | Outpatient (AMB) | payer BC, SELFPAY ==
--- OUTSIDE RECORDS SUMMARY | 2025-02-20 12:55 | XMS_ITS | Patient Health Record ---
Author Organization Jett Riddle III, MD Address [address] [place] [address] LINDA [facility] [place] [address] Care Team Providers Care Purchaser Name Role Phone Rui Lemos MD Primary Care Provider Jett Oakes Unavailable [phone] Allergies Allergen (clinical drug ingredient) Drug/Non Drug [...] Problem Status W/U Status Risk Notes Problem 8221557 Former smoker (Z87.891) Active confirmed She has a plan to prevent relapse and times of stress and illness. Problem 001992573 Overweight (E66.3) Active confirmed Her body mass i ndex is 27. We discussed her diet and nutrition. We made a plan to lose weight at a rate of one half damien a pound per week. Problem 23296871 Adenopathy (R59.9) Active confirmed The lymph node will be observed at short intervals. Comprehensive bloood work was ordered. If there is progression in the lymph node. It will be excised and study further. Problem [id number] Cervical adenopathy (R59.0) Active confirmed The lymph node in the upper left neck is Unchanged It is mobile and nontender. She will be observed. The differential diagnosis remains a chronic lymphoproliferative process versus reactive lymph node. Problem 530893296 History of spinal stenosis (Z87.39) Active confirmed [...] Insured Coverage Start Date Coverage End Date [facility] [address] [place], [place] [id number] [phone] [id number] COLEEN COLLADO Self - patient is the insured Medical (General) History Medical History History ICD Code Cervical adenopathy Overweight Childhood meningitis Extraction maxillary molar Negative test for tuberculosis Tobacco dependence Spinal stenosis Surgical History Surgery Date(Month/Year) Laminectomy lumbar spine for spinal sten osis 2005 Surgical procedure right elbow 2017
--- NOTE | 2025-02-20 12:57 | MHC.PC.OV ---
Vital Signs 02/20/25 12:59 Height 5 ft 6 in Weight 169 lb 8 oz BMI 27.4 BP 122/70 Blood Pressure Location Lt brachial Position Sitting Pulse 73 Pulse Source Pulse Oximeter Temp 96.9 F Temp Source Temporal Artery Scan Pulse Oximetry (%) 98 Oxygen Delivery Method Room Air Intake Visit Reasons: [place] [facility] [place] ABD pain Intake Note: Patient is here for hospital discharge and TCM follow up. Patient was discharged from [facility] [place] 02/18/25. Animal Care Giver Required: No Agriculture Engineer: Present Accompanied by: Spouse Allergies fexofenadine (From Muriel-D 12 Hour) Allergy (Intermediate, Verified 02/20/25 12:59) Worsen cold symtoms fluticasone (From Flonase) Allergy (Intermediate, Verified 02/20/25 12:59) More congested pseudoephedrine (From Muriel-D 12 Hour) Allergy (Intermediate, Verified 02/20/25 12:59) Worsen cold symtoms metformin Adverse Reaction (Intermediate, Verified 02/20/25 12:59) lower blood sugar SEDATIVE MED Adverse Reaction (Intermediate, Uncoded 02/20/25 12:59) BURNING SENSATION Tobacco use date assessed: 02/20/25 Dental Screening Dental Screen Date: 08/21/24 HPI TCM TCM Information Date of Discharge 02/18/25 Discharged From [facility] Interactive Contact Date (Reference documentation from this date) 02/19/25 HPI Comments History of Present Illness Details 54 y/o Female patient who presents to the clinic today for HDF. Pt was [place] [facility] [place] 02/17 - 02/18 for an evaluation and treatment of Appendicitis. Pt is S/P Laparoscopic Appendectomy on 02/17. Today Patient reports mild Pain at the incision sites and has been able to eat well and go to the bathroom. Denies Fevers, chills, Nausea and vomiting. [facility] Medical History History of mammogram (~11/2023) Pure hypercholesterolemia, unspecified Hyperlipidemia LDL goal <100 Submandibular lymphadenopathy Diabetes mellitus History of depression Asthma Surgical History (Updated 02/20/25 @ 13:05 by SHAN Barnett) History of appendectomy History of colonoscopy (~09/18/24) H/O lymph node excision (10/08/24) H/O elbow surgery H/O Spinal surgery Family History Father Dementia Diabetes FH: HTN (hypertension) Other Mental health disorder Social History Household Members: Spouse Housing: House Are you a primary hearing healthcare practitioner to a significant other at home: No Do you presently have visiting nurse or other home services: No Alcohol intake: current Alcohol intake frequency: holidays/special occasions only Patient Tobacco Use Status: Former Tobacco user e-Cigarette/Vaping Use: Never Used Second Hand Smoke Exposure: Yes service: No Current occupational status: employed 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 [employer] Sexual orientation: Straight/Heterosexual Gender identity: Female Cognitive needs: No Hearing needs: No Vision needs: Yes (Glasses) Female Reproductive History Menstrual Age of Menarche: 13 Questionnaire Thrive Questionnaire Date Thrive assessed: 08/21/24 I am a: Patient What is your living situation today?: I have a steady place to live Within the past 12 months, did the food you bought not last and you didn't have the money to get more?: Never true Within the past 12 months, did you worry whether your food would run out before you got money to buy more?: Never true Do you have trouble paying for medicines?: I choose not to answer this question Do you have trouble getting transportation to medical appointments?: No Do you have trouble paying your heating and electricity bill?: No Do you have trouble taking care of your child, family member or friend?: No Do you have trouble with day-to-day activities such as bathing, preparing meals, shopping, managing finances, etc.?: No Are you currently unemployed and looking for a job?: No Are you interested in more education?: No Please select the resources that you would like help with: None Currently or been in a relationship where the following occur: No concerns reported THRIVE Score: 0 TIFFANIE-7 AMB Questionnaire TIFFANIE-7 Date TIFFANIE - 7 assessed: 08/21/24 Source: Developed by Drs. Jett Ferraro, Sybil Gilmore, Benson Wade and colleagues, with an educational jeramie from [employer]. Review of Systems Const All systems reviewed & are unremarkable except as noted in HPI and below Physical exam (Primary Care) Vital Signs: Last Vital Signs Temp 96.9 F 02/20/25 12:59 Pulse 73 02/20/25 12:59 BP 122/70 02/20/25 12:59 Pulse Ox 98 02/20/25 12:59 Oxygen Delivery Method Room Air 02/20/25 12:59 BMI result Body Mass Index 27.4 Tobacco/Smoking Status: Tobacco use Status Tobacco use date assessed 02/20/25 02/20/25 13:06 Patient Tobacco Use Status Former Tobacco user 02/20/25 13:06 e-Cigarette/Vaping Use Never Used 02/20/25 13:06 Thrive Assessment: Date of Thrive Assessment Date Thrive assessed 08/21/24 02/20/25 13:06 Currently or been in a relationship where the following occur: No concerns reported Const General: no acute distress Nutritional Appearance: well nourished Orientation/consciousness: patient oriented x3 HENMT Head: Yes normocephalic Resp Effort & Inspection: normal respiratory effort and able to speak in complete sentences Auscultation: clear to auscultation bilaterally, no crackles, no rales, no rhonchi and no wheezes Cardio Heart sounds: S1 normal heart sound present and S2 normal heart sound present GI Palpation (GI): Soft to palpation, not firm, Tenderness to palpation present (GI) (Generalized Abdominal pain), no guarding, not rigid and No hepatosplenomegaly present Abdomen image:  1. 3 Port size Incision wounds covered with Steris - dry no signs of infection. Mild Tenderness around the Port sites. General: Yes no CVA tenderness Back/Spine/Pelvis Back: no CVA tenderness Neuro General: patient oriented x3 Coding Level of Care Code TCM Mod MDM <= 7 Days Diagnoses S/P laparoscopic appendectomy Z90.49 Time Spent (min) 20 Assessment & Plan Assessment & Plan (1) S/P laparoscopic appendectomy: Code(s): Z90.49 - Acquired absence of other specified parts of digestive tract Category: Surgical Plan: Stable. Has a Post-op appointment with Surgeon 02/27
[2025-02-20 12:59] VITALS: BP 122/70; PULSE 73; TEMP 36.1; O2SAT 98; BMI 27.4
== END 2025-02-20 16:32 | disposition home or self-care (01) ==
LOC: HO.HMCH 12:53
PROVIDERS: PCP Internal Medicine; Visit Provider Nurse Practitioner Family
DX: K35.80 Unspecified acute appendicitis (principal); Z90.49 Acquired absence of other specified parts of digestive tract

== ENCOUNTER 2025-03-12 08:35 | Outpatient (AMB) | payer BC, SELFPAY ==
[2025-03-12 08:43] VITALS: BP 110/66; PULSE 89; TEMP 36.1; O2SAT 100; BMI 26.5
--- NOTE | 2025-03-12 08:43 | MHC.PC.OV ---
Vital Signs 03/12/25 08:43 Height 5 ft 6 in Weight 164 lb BMI 26.5 BP 110/66 Blood Pressure Location Lt brachial Position Sitting Pulse 89 Pulse Source Pulse Oximeter Temp 97.0 F Temp Source Temporal Artery Scan Pulse Oximetry (%) 100 Oxygen Delivery Method Room Air Intake Visit Reasons: 3mth f/u - see comments Allergies fexofenadine (From Muriel-D 12 Hour) Allergy (Intermediate, Verified 03/12/25 08:47) Worsen cold symtoms fluticasone (From Flonase) Allergy (Intermediate, Verified 03/12/25 08:47) More congested pseudoephedrine (From Muriel-D 12 Hour) Allergy (Intermediate, Verified 03/12/25 08:47) Worsen cold symtoms metformin Adverse Reaction (Intermediate, Verified 03/12/25 08:47) lower blood sugar SEDATIVE MED Adverse Reaction (Intermediate, Uncoded 03/12/25 08:47) BURNING SENSATION Tobacco use date assessed: 03/12/25 Dental Screening Dental Screen Date: 03/12/25 Did you have a dental visit in the last 12 months?: Yes Did you have a dental problem in the last 6 months where you did not have access to dental care?: No Was dental information given to patient?: Patient has dentist [facility] Medical History History of mammogram (~11/2023) Pure hypercholesterolemia, unspecified Hyperlipidemia LDL goal <100 Submandibular lymphadenopathy Diabetes mellitus History of depression Asthma Surgical History History of appendectomy History of colonoscopy (~09/18/24) H/O lymph node excision (10/08/24) H/O elbow surgery H/O Spinal surgery Family History Father Dementia Diabetes FH: HTN (hypertension) Other Mental health disorder Social History Household Members: Spouse Housing: House Are you a primary manager primary care to a significant other at home: No Do you presently have visiting nurse or other home services: No Alcohol intake: current Alcohol intake frequency: holidays/special occasions only Patient Tobacco Use Status: Former Tobacco user e-Cigarette/Vaping Use: Never Used Second Hand Smoke Exposure: Yes service: No Current occupational status: employed 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 1. Little interest or pleasure in doing things: not at all 2. Feeling down, depressed, or hopeless: not at all 3. Trouble falling or staying asleep, or sleeping too much: not at all 4. Feeling tired or having little energy: not at all 5. Poor appetite or overeating: not at all 6. Feeling bad about yourself - or that you are a failure or have let yourself or your family down: not at all 7. Trouble concentrating on things, such as reading the newspaper or watching television: not at all 8. Moving or speaking so slowly that other people could have noticed. Or the opposite - being so fidgety or restless that you have been moving around a lot more than usual: not at all 9. Thoughts that you would be better off or of hurting yourself in some way: not at all Total score: 0 Depression Screening Interpretation: Negative Depression Screening Done: Yes Source: Developed by Drs. Jett Ferraro, Sybil Gilmore, Benson Wade and colleagues, with an educational jeramie from [employer] Thrive Questionnaire Date Thrive assessed: 08/21/24 I am a: Patient What is your living situation today?: I have a steady place to live Within the past 12 months, did the food you bought not last and you didn't have the money to get more?: Never true Within the past 12 months, did you worry whether your food would run out before you got money to buy more?: Never true Do you have trouble paying for medicines?: I choose not to answer this question Do you have trouble getting transportation to medical appointments?: No Do you have trouble paying your heating and electricity bill?: No Do you have trouble taking care of your child, family member or friend?: No Do you have trouble with day-to-day activities such as bathing, preparing meals, shopping, managing finances, etc.?: No Are you currently unemployed and looking for a job?: No Are you interested in more education?: No Please select the resources that you would like help with: None Currently or been in a relationship where the following occur: No concerns reported THRIVE Score: 0 AUDIT C Alcohol Use Questionnaire (AUDIT-C) 1. How often do you have a drink containing alcohol?: 2-4 times a month 2. How many drinks containing alcohol do you have on a typical day when you are drinking?: 1 or 2 3. How often do you have six or more drinks on one occasion?: Less than monthly Total Score: 3 TIFFANIE-7 AMB Questionnaire TIFFANIE-7 Date TIFFANIE - 7 assessed: 08/21/24 Feeling nervous, anxious, or on edge: 0 = Not at all Not being able to stop or control worryin = Not at all Worrying too much about different things: 0 = Not at all Trouble relaxin = Not at all Being so restless that it is hard to sit still: 0 = Not at all Becoming easily annoyed or irritable: 0 = Not at all Feeling afraid as if something awful might happen: 0 = Not at all Total TIFFANIE-7 score (0-4 normal; 5-9 mild; 10-14 moderate; 15-21 severe): 0 Source: Developed by Drs. Jett Ferraro, Sybil Gilmore, Benson Wade and colleagues, with an educational jeramie from [employer] Physical exam (Primary Care) Vital Signs: Last Vital Signs Temp 97.0 F 03/12/25 08:43 Pulse 89 03/12/25 08:43 BP 110/66 03/12/25 08:43 Pulse Ox 100 03/12/25 08:43 Oxygen Delivery Method Room Air 03/12/25 08:43 BMI result Body Mass Index 26.5 Tobacco/Smoking Status: Tobacco use Status Tobacco use date assessed 03/12/25 03/12/25 08:48 Patient Tobacco Use Status Former Tobacco user 03/12/25 08:46 e-Cigarette/Vaping Use Never Used 03/12/25 08:46 PHQ-9: PHQ-9 Score PHQ-9: Total score 0 03/12/25 08:48 Depression Screening Interpretation: Negative Thrive Assessment: Date of Thrive Assessment Date Thrive assessed 08/21/24 03/12/25 08:46 Currently or been in a relationship where the following occur: No concerns reported Results AMB Hemoglobin A1c AMB Hemoglobin A1c 5.9 % Last Edit by Radha Novak CMA on 03/12/25 08:55 Results Reviewed Results Reviewed: Laboratory Last Values Hgb A1c (Clinic) 5.9 % (4.0-6.0) 03/12/25 08:41 Coding Level of Care Code Est Pt Level 4 (91685) Complex EM visit Add On G2211 Diagnoses Diabetes mellitus E11.9 Hyperlipidemia LDL goal <100 E78.5 Assessment & Plan Assessment & Plan (1) Diabetes mellitus: Code(s): E11.9 - Type 2 diabetes mellitus without complications Category: Medical Plan: A1c is less than 6. Currently on no medication. Continue with diet and exercise. (2) Hyperlipidemia LDL goal <100: Code(s): E78.5 - Hyperlipidemia, unspecified Category: Medical Plan: Patient's LDL is above goal. She declines to get on medications or statins. Understands the risks. We will check LDL in 6 months. Plan History of Present Illness - The patient is a 54-year-old female presenting with a follow-up after an appendectomy and to discuss preventative care measures. - Appendicitis: The patient underwent an appendectomy in the emergency department and is recovering well. - Diabetes: The patient is managing her diabetes through dietary measures and is not on medication. - Hypercholesterolemia: The patient was advised about high cholesterol levels in October and has been adjusting her diet accordingly. - Preventative care: The patient needs to schedule a mammogram, which was delayed previously. Social History - Employment: The patient is employed and reports her work is going well. - Exercise: The patient is gradually resuming exercise after her appendectomy. Review of Systems - General: Reports feeling well overall. - Musculoskeletal: Reports mild, intermittent pain at the site of appendectomy stitches. Physical Exam General: Cooperative and healthy appearing Nutritional Appearance: Well nourished Orientation/consciousness: Patient oriented x3 Limitations: No limitations Head: Normal to inspection General: Appearance normal, both eyes and all related structures Neck: Normal visual inspection Chest: Normal palpation of entire chest wall Respiratory: Normal respiratory effort Neurology: Patient oriented x3 Results - Labs: Blood work was completed in October and November, showing elevated cholesterol levels. Plan 1. Appendicitis - Follow-up after appendectomy with no current complications reported. 2. Diabetes - Continue dietary management; no medication required at this time. 3. Hypercholesterolemia - Monitor cholesterol levels; dietary modifications ongoing. Re-evaluate in six months. 4. Preventative Care: Mammogram - Schedule mammogram as previously planned. Discussion Notes During the visit, we discussed the patient's recovery from appendicitis and the importance of continuing dietary management for diabetes and hypercholesterolemia. We agreed to monitor cholesterol levels and consider medication if necessary in six months. The patient was reminded to schedule her mammogram. Patient Instructions - Continue with dietary management for diabetes and cholesterol. - Schedule and complete the mammogram. - Follow up in six months for cholesterol re-evaluation. Orders: Orders AMB Hemoglobin A1c Today Z13.9 - Encounter for screening, unspecified
--- OUTSIDE RECORDS SUMMARY | 2025-03-12 09:32 | XMS_ITS | Patient Health Record ---
Author Organization Jett Riddle III, MD Address [address] [place] [address] LINDA Samuel [facility] [place] [address] Care Team Providers Care Program Director/Traffic Director Name Role Phone Rui Lemos MD Primary Care Provider Jett Oakes Unavailable [phone] Allergies Allergen (clinical drug ingredient) Drug/Non Drug [...] Problem Status W/U Status Risk Notes Problem 2190625 Former smoker (Z87.891) Active confirmed She has a plan to prevent relapse and times of stress and illness. Problem 748883660 Overweight (E66.3) Active confirmed Her body mass i ndex is 27. We discussed her diet and nutrition. We made a plan to lose weight at a rate of one half damien a pound per week. Problem [id number] Adenopathy (R59.9) Active confirmed The lymph node will be observed at short intervals. Comprehensive bloood work was ordered. If there is progression in the lymph node. It will be excised and study further. Problem [id number] Cervical adenopathy (R59.0) Active confirmed The lymph node in the upper left neck is Unchanged It is mobile and nontender. She will be observed. The differential diagnosis remains a chronic lymphoproliferative process versus reactive lymph node. Problem 606211175 History of spinal stenosis (Z87.39) Active confirmed [...] Insured Coverage Start Date Coverage End Date [facility] [address] [place], [place] [id number] COLEEN COLLADO Self - patient is the insured Medical (General) History Medical History History ICD Code Cervical adenopathy Overweight Childhood meningitis Extraction maxillary molar Negative test for tuberculosis Tobacco dependence Spinal stenosis Surgical History Surgery Date(Month/Year) Laminectomy lumbar spine for spinal sten osis 2005 Surgical procedure right elbow 2017
== END 2025-03-12 09:08 | disposition home or self-care (01) ==
LOC: HO.HMCH 08:36
PROVIDERS: PCP Internal Medicine; Visit Provider Internal Medicine
DX: E11.9 Type 2 diabetes mellitus without complications (principal); E78.5 Hyperlipidemia, unspecified; Z13.9 Encounter for screening, unspecified

== ENCOUNTER → 2025-03-12 08:35 | Outpatient (BNVA) | payer BC, SELFPAY | PROVIDERS: PCP Internal Medicine; Visit Provider Internal Medicine | DX: E11.9 Type 2 diabetes mellitus without complications (principal); E78.5 Hyperlipidemia, unspecified; E78.00 Pure hypercholesterolemia, unspecified; Z90.49 Acquired absence of other specified parts of digestive tract | CPT/HCPCS: 83036; 96127 ==

== ENCOUNTER 2025-05-25 08:12 | Outpatient (REF) | payer BC, SELFPAY ==
--- OUTSIDE RECORDS SUMMARY | 2025-05-25 08:26 | XMS_ITS | Patient Health Record ---
Author Organization Jett Riddle III, MD Address [address] [place] [address] LINDA Samuel [facility] [place] [address] Care Team Providers Care Director Music Name Role Phone Rui Lemos MD Primary Care Provider UnavailDr. Jett Arceo III Unavailable Allergies Allergen (clinical drug ingredient) Drug/Non Drug [...] Problem Status W/U Status Risk Notes Problem 6032895 Former smoker (Z87.891) Active confirmed She has a plan to prevent relapse and times of stress and illness. Problem 803323906 Overweight (E66.3) Active confirmed Her body mass i ndex is 27. We discussed her diet and nutrition. We made a plan to lose weight at a rate of one half damien a pound per week. Problem 08902229 Adenopathy (R59.9) Active confirmed The lymph node will be observed at short intervals. Comprehensive bloood work was ordered. If there is progression in the lymph node. It will be excised and study further. Problem [id number] Cervical adenopathy (R59.0) Active confirmed The lymph node in the upper left neck is Unchanged It is mobile and nontender. She will be observed. The differential diagnosis remains a chronic lymphoproliferative process versus reactive lymph node. Problem [id number] History of spinal stenosis (Z87.39) Active confirmed [...] Coverage Start Date Coverage End Date [facility] [address] [place], [place] [id number] COLEEN COLLADO Self - patient is the insured Medical (General) History Medical History History ICD Code Cervical adenopathy Overweight Childhood meningitis Extraction maxillary molar Negative test for tuberculosis Tobacco dependence Spinal stenosis Surgical History Surgery Date(Month/Year) Laminectomy lumbar spine for spinal sten osis 2005 Surgical procedure right elbow 2017
[2025-05-25 09:02] LABS: Hematocrit 40.4 % (37.0-47.0); Hemoglobin 13.2 g/dl (12.0-16.0); Mean Corpuscular HGB Conc 32.7 g/dl (31.0-35.0); Mean Corpuscular Hemoglobin 29.4 pg (27.0-33.0); Mean Corpuscular Volume 90.0 fL (80.0-98.0); NRBC Abs Auto 0.000 X10*3/uL (0.0-0.012); NRBC Pct Auto 0.0 /100WBC (0.0-0.2); Platelet Count 269 X10*3/uL (160-400); Red Blood Count 4.49 X10*6/uL (4.20-5.50); White Blood Count 5.3 X10*3/uL (4.8-10.8)
[2025-05-25 09:23] LABS: Appearance Urine Clear; Glucose Urine UA Negative (Negative); PH 5.5 (5.0-9.0); Specific Gravity - Urine 1.015 (1.005-1.025); UMIC TRIGGER UA YES
[2025-05-25 09:49] LABS: Alanine Aminotransferase 53 U/L (0-31); Albumin Level 5.0 g/dL (3.5-5.0); Alkaline Phosphatase 87 U/L (39-117); Anion Gap 10 (12-20); Aspartate Amino Transferase 34 U/L (5-31); Blood Urea Nitrogen 10 mg/dL (9-16); Calcium 10.1 mg/dL (8.4-10.2); Carbon Dioxide 29 mmol/L (22-29); Chloride 106 mmol/L (96-108); Cholesterol 214 mg/dL (<200); Estimated Glomerular Filt Rate > 60; HDL Cholesterol 61 mg/dL (>40); Potassium 4.2 mmol/L (3.3-5.1); Sodium 141 mmol/L (135-145); Total Protein 7.8 g/dL (6.5-8.0); Triglycerides 109 mg/dL (<150)
[2025-05-25 10:09] LABS: Thyroid Stimulating Hormone 1.61 uIU/mL (0.32-4.0)
== END 2025-05-25 08:13 | disposition home or self-care (01) ==
LOC: HO.LAB 08:12
PROVIDERS: PCP Internal Medicine; Visit Provider Internal Medicine
DX: E11.9 Type 2 diabetes mellitus without complications (principal); E78.5 Hyperlipidemia, unspecified
CPT/HCPCS: 36415; 80048; 80061; 80076; 81001; 83036; 84443; 85027

== ENCOUNTER 2025-06-26 17:58 | Emergency (ER) | payer BC, SELFPAY ==
--- NOTE | ~2025-06-26 | US_ITS ---
CLINICAL HISTORY: abnormal uterine bleeding, pain US pelvis transabdominal and transvaginal Comparison: CT/SR - CT ABDOMEN PELVIS W IV CON - 02/17/25 00:45 EDT Findings: Transabdominal scanning performed for overall anatomy. Transvaginal scanning performed for additional detail. Anteverted uterus is 7.2 cm length. Intramural fibroids, Largestmeasuring up to 3.6 cm. No endometrial lesion, 3 mm thickness. Ovaries not visualized. No free fluid. IMPRESSION: 1. Endometrium appears unremarkable. 2. Uterine fibroids measuring up to 3.6 cm. This document has been electronically signed by: Jackeline Peterson MD on 06/26/2025 19:54:21
--- NOTE | 2025-06-26 18:06 | ED_ITS ---
HPI - General Adult General Chief complaint: Vaginal Bleeding Stated complaint: Vaginal bleeding Time Seen by Provider: 06/26/25 21:39 Source: patient, RN notes reviewed and old records reviewed Mode of arrival: ambulatory Limitations: no limitations History of Present Illness ED Provider: Berna Harman PA-C HPI narrative: Patient is a 54-year-old postmenopausal female (LMP ~7 years ago) who noticed vaginal bleeding earlier today while at work. She observed blood on the toilet tissue and in the toilet bowl. She describes the bleeding as light; she is not soaking through a pad or tampon within an hour and reports no passage of heavy clots. She denies abdominal pain, urinary symptoms, fever, chills, or dizziness. A rapid medical exam was completed in triage, and ED work-up included labs, urinalysis, and transvaginal ultrasound (see Objective). The patient is currently hemodynamically stable and feels well aside from the light bleeding. Review of Systems: * Constitutional: Denies fever, chills. * Cardiovascular: No dizziness reported. * Gastrointestinal: Denies abdominal pain. * Genitourinary: Positive for light vaginal bleeding. Denies urgency, dysuria, frequency. Related Data Home Medications ?Medication ?Instructions ?Recorded ?Confirmed blood sugar diagnostic (True 08/21/24 02/27/25 Metrix Glucose Test Strip) blood-glucose meter (True Metrix 08/21/24 02/27/25 Glucose Meter) lancets 28 gauge (Easy Touch 08/21/24 02/27/25 Safety Lancets) multivitamin 1 tab PO DAILY 02/17/25 08/0 03/16 Allergies Allergy/AdvReac Type Severity Reaction Status Date / Time fexofenadine (From Muriel-D Allergy Intermediate Worsen Verified 06/26/25 18:08 12 Hour) cold symtoms fluticasone (From Flonase) Allergy Intermediate More Verified 06/26/25 18:08 congested pseudoephedrine (From Allergy Intermediate Worsen Verified 06/26/25 18:08 Muriel-D 12 Hour) cold symtoms metformin AdvReac Intermediate lower Verified 06/26/25 18:08 blood sugar SEDATIVE MED AdvReac Intermediate BURNING Uncoded 06/26/25 18:08 SENSATION Review of Systems 2 Review of Systems: Yes all other systems are reviewed and are negative PMFSH Past Medical History Attestation statement: The following information was validated with the patient. Source: old records reviewed, obtained from family and nursing notes reviewed Medical History History of mammogram (~11/2023) Pure hypercholesterolemia, unspecified Hyperlipidemia LDL goal <100 Submandibular lymphadenopathy Diabetes mellitus History of depression Asthma Surgical History History of appendectomy History of colonoscopy (~09/18/24) H/O lymph node excision (10/08/24) H/O elbow surgery H/O Spinal surgery Family History Family History Father Dementia Diabetes FH: HTN (hypertension) Other Mental health disorder Social History Social History Household Members: Spouse Housing: House Are you a primary critical care transport nurse to a significant other at home: No Do you presently have visiting nurse or other home services: No Alcohol intake: current Alcohol intake frequency: holidays/special occasions only Patient Tobacco Use Status: Former Tobacco user e-Cigarette/Vaping Use: Never Used Second Hand Smoke Exposure: Yes Advance Directives: No Advance Directives Information Provided: No Do you have a plan to hurt others: No Plan service: No Current occupational status: employed 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 No septic or ill-appearing. Vitals reviewed normal, PMH/Social and Surgical hx reviewed including allergies and current medications. - reviewed for prior visits here Head: Normocephalic, no obvious trauma or skin lesions noted. Eyes: EOMI, conjunctiva and sclera clear no pallor ENMT: moist oral mucosa Neck: trachea midline Cardiovascular: peripheral perfusion normal, Regular heart rate regular rhythm Respiratory: no respiratory distress Abdomen: nondistended but protuberant no suprapubic or CVA tenderness no abdominal tenderness Extremities: warm and moving without difficulty Psych: Cooperative Neuro: Alert and oriented. Vital Signs: Vital Signs - 24 hr 06/26/25 18:07 06/26/25 21:35 Temperature 97.3 F 97.8 F Pulse Rate 93 82 Respiratory Rate 18 16 Blood Pressure 141/92 H 148/90 H Pulse Oximetry 99 100 Oxygen Delivery Method Room Air Room Air BMI result Body Mass Index 26.5 Course Course Course Narrative: Rapid medical examination performed in triage by Jeanne Morocho PA-C: Patient is a 54 year old assigned female at presenting to the emergency department with vaginal bleeding. Patient states she has been in menopause for 7 years and began bleeding. Detailed physical exam and review of systems are deferred to the research fellow. Labs and imaging ordered. Patient placed back in the waiting room pending room availability and results. Medical Decision Making Medical Decision Making MDM Narrative: The patient is a 54-year-old postmenopausal woman (LMP ~7 years ago) presenting with acute onset of light vaginal bleeding. She denies abdominal pain, urinary symptoms, fever, chills, or dizziness. She is hemodynamically stable, with reassuring laboratory results including a normal CBC and CMP. Chronic mild transaminitis is noted, with stable liver function over the past month. Imaging Integration: Transvaginal ultrasound revealed a single intramural uterine fibroid measuring 3.6 cm. The endometrial stripe is thin at 3 mm, with no evidence of endometrial thickening, focal lesion, or free fluid. Ovaries were not visualized, but no adnexal masses were reported. Differential Diagnosis: The most likely etiology for this episode of postmenopausal bleeding is the identified uterine fibroid. However, the differential diagnosis must also include endometrial cancer, endometrial polyps, endometrial atrophy, coagulopathy, and other less common causes. The absence of endometrial thickening and a thin endometrial stripe on ultrasound significantly lowers the likelihood of endometrial malignancy, but does not exclude it entirely. Risk Assessment: The patient is at low risk for endometrial cancer given her thin endometrial stripe (<4 mm), stable vital signs, and normal CBC. However, malignancy cannot be fully excluded without tissue diagnosis, and recurrence or persistence of bleeding would warrant further investigation. Rationale for Management: Per ACOG guidelines, observation and outpatient follow-up are appropriate for an initial episode of postmenopausal bleeding when the endometrial stripe is thin and no focal lesion is present. The patient is referred to gynecology for further evaluation. Ibuprofen is recommended for symptomatic relief of cramping, as her liver function is compensated and mild transaminitis is stable. Return precautions are provided for heavy bleeding, worsening symptoms, or new concerning features. Chronic liver enzyme elevation will require outpatient follow-up. Justification for Not Performing Endometrial Biopsy in ED: Endometrial biopsy is not indicated in the emergency department for this patient due to her low-risk features and guideline-based approach. However, outpatient follow-up is essential, and biopsy should be performed if bleeding recurs or persists, or if new risk factors emerge. Differential Diagnosis Differential Diagnoses: The differential diagnosis associated with the presentation includes See above Admission/Observation Consideration of admission/observation: Escalation of care including admission/observation considered Lab Data MDM Lab Attestation statement: I reviewed the patient's lab results. 06/26/25 20:32 06/26/25 20:32 Labs: Lab Results 06/26/25 Range/Units 20:32 WBC 9.0 (4.8-10.8) X10*3/uL RBC 4.40 (4.20-5.50) X10*6/uL Hgb 12.7 (12.0-16.0) g/dl Hct 38.8 (37.0-47.0) % MCV 88.2 (80.0-98.0) fL MCH 28.9 (27.0-33.0) pg MCHC 32.7 (31.0-35.0) g/dl RDW 12.7 (11.0-16.0) % Plt Count 275 (160-400) X10*3/uL MPV 9.8 (9.4-12.3) fL Immature Gran % (Auto) 0.2 (0.0-0.4) % Neut % (Auto) 62.2 (45-73) % Lymph % (Auto) 26.6 (20-40) % [place] % (Auto) 8.1 (2-11) % Eos % (Auto) 2.5 (0-4) % Baso % (Auto) 0.4 (0-2) % Lymph # (Auto) 2.4 (1.2-4.9) X10*3/uL [place] # (Auto) 0.7 (0.1-1.2) X10*3/uL Eos # (Auto) 0.2 (0.0-0.4) X10*3/uL Baso # (Auto) 0.0 (0.0-0.2) X10*3/uL Abs Immat Gran (auto) 0.02 (0.00-0.03) X10*3/uL Absolute Neuts (auto) 5.6 (2.0-8.3) x10*3/uL Absolute Nucleated RBC 0.000 (0.0-0.012) X10*3/uL Nucleated RBC % (auto) 0.0 (0.0-0.2) /100WBC PT 13.4 (11.2-13.5) SEC INR 1.1 (0.9-1.1) Sodium 142 (135-145) mmol/L Potassium 3.4 (3.3-5.1) mmol/L Chloride 104 (96-108) mmol/L Carbon Dioxide 29 (22-29) mmol/L Anion Gap 12 (12-20) BUN 15 (9-16) mg/dL Creatinine 0.83 (0.5-1.4) mg/dL Estim Creat Clear Calc 79.9 Estimated GFR > 60 Random Glucose 105 (60-115) mg/dL Calcium 10.2 (8.4-10.2) mg/dL Total Bilirubin 0.4 (0.0-1.0) mg/dL AST 53 H (5-31) U/L ALT 110 H (0-31) U/L Alkaline Phosphatase 83 (39-117) U/L Total Protein 8.2 H (6.5-8.0) g/dL Albumin 5.3 H (3.5-5.0) g/dL Urine Color Yellow Urine Appearance Clear Urine pH 6.0 (5.0-9.0) Ur Specific [place] 1.015 (1.005-1.025) Urine Protein Negative (Neg-Trace) mg/dL Urine Glucose (UA) Negative (Negative) mg/dL Urine Ketones Negative (Negative) mg/dL Urine Blood Large (3+) H (Negative) Urine Nitrite Negative (Negative) Ur Leukocyte Esterase Trace H (Negative) Urine RBC >20 H (0-2) /HPF Urine WBC 0-5 (0-5) /HPF Ur Squamous Epith Cells 6-10 (0-2) /HPF Urine Bacteria None Seen (None Seen) Hyaline Casts 0-2 (0-2) /LPF Independent Interpretation I performed an independent interpretation of an: Ultrasound (no endometritis) Radiology Impression Discussion of test interpretation with radiology: I have reviewed the radiologist's reading. Tests considered The following testing was considered but not selected: CT abd/pelvis, if trauma was present Prescription Management I considered prescription management with: Pain Medication Chronic Conditions Patient?s care impacted by: Other Discharge Plan Discharge Clinical Impression: Vaginal bleeding Uterine fibroid Qualifiers: Uterine leiomyoma location: intramural Qualified Code(s): D25.1 - Intramural leiomyoma of uterus Patient Disposition: Home, Self-Care Instructions: Uterine Fibroids (ED) Additional Instructions: Discharge Instructions for Postmenopausal Bleeding and Uterine Fibroid DISCHARGE INSTRUCTIONS Patient Name: Date: June 27, 2025 SUMMARY OF EMERGENCY DEPARTMENT VISIT You came to the Emergency Department today because of light vaginal bleeding. Your last menstrual period was approximately 7 years ago. You underwent evaluation including laboratory testing and transvaginal ultrasound imaging. Y our evaluation showed a 3.6 cm uterine fibroid (a benign growth in the uterus) and a thin endometrial lining measuring 3 mm. Your blood counts are normal, showing no anemia, and you are hemodynamically stable. The ultrasound findings are reassuring. An endometrial thickness of 3 mm has a greater than 99% negative predictive value for endometrial cancer, meaning the risk of cancer is extremely low with these findings. However, because any postmenopausal bleeding requires thorough evaluation to exclude malignancy, you need close outpatient follow-up with gynecology. OUTPATIENT FOLLOW-UP RECOMMENDATIONS 1. Gynecology Appointment: You should see a packing machine pilot can router within 2-4 weeks of discharge. Gynecology will determine if additional evaluation is needed, including possible endometrial biopsy. While your thin endometrial stripe is reassuring for this initial episode, any persistent or recurrent bleeding warrants tissue sampling regardless of endometrial thickness. 2. Primary Care Follow-Up: Schedule a follow-up appointment with your primary care physician within 1-2 weeks to discuss your mildly elevated liver enzymes (AST 53, ALT 110), which were noted on today's testing and appear to represent a chronic issue based on prior values. SYMPTOM MANAGEMENT For mild cramping or discomfort, you may take ibuprofen (Advil, Motrin) 400-600 mg every 6-8 hours as needed with food. Given your mildly elevated liver enzymes, short-term use of ibuprofen is acceptable, but avoid acetaminophen (Tylenol) in high doses and limit alcohol consumption. Use the lowest effective dose of ibuprofen for the shortest duration possible. You may use sanitary pads as needed for any light bleeding. Avoid tampons initially to better monitor the amount of bleeding. RETURN PRECAUTIONS - SEEK EMERGENCY CARE IF YOU EXPERIENCE: * Heavy vaginal bleeding?- soaking through one pad or tampon per hour for 2 or more consecutive hours * Passage of large blood clots?(larger than a quarter) * Severe abdominal or pelvic pain?that is not relieved by lnro-pye-[id number] pain medication * Dizziness, lightheadedness, or fainting * Fever greater than 100.4?F (38?C) * Any other concerning symptoms?that worry you IMPORTANT PATIENT EDUCATION About Postmenopausal Bleeding: Vaginal bleeding after menopause (defined as no periods for 12 months) is never normal and always requires evaluation.?Bleeding is the presenting sign in more than 90% of postmenopausal women with endometrial cancer.?However, many benign conditions can also cause postmenopausal bleeding, including uterine fibroids, endometrial polyps, and vaginal atrophy. Important: If you experience any recurrent bleeding episodes, you must be evaluated again even though your current ultrasound was reassuring. Persistent or recurrent postmenopausal bleeding requires histologic evaluation of the endometrium (tissue sampling) regardless of endometrial thickness.?The packing machine pilot can router may recommend endometrial biopsy during your follow-up visit.[1] About Uterine Fibroids: Uterine fibroids (also called leiomyomas or myomas) are benign (non-cancerous) growths of the uterine muscle.?They are extremely common, affecting 70-80% of women at some point during their lifetime.?Most fibroids are asymptomatic and are found incidentally on imaging. The natural course of fibroids in postmenopausal women is typically shrinkage? due to decreased estrogen levels after menopause. However, fibroids can occasionally cause symptoms even after menopause, including: * Abnormal uterine bleeding * Pelvic pressure or fullness * Urinary frequency or urgency * Constipation or bowel changes * Low back pain Fibroids are almost always benign.?The risk of a fibroid being cancerous (leiomyosarcoma) is very low, estimated at less than 1%. However,?postmenopausal women with fibroids who experience persistent bleeding or fibroid growth warrant increased suspicion and thorough evaluation, as the natural history should be fibroid shrinkage rather than growth. Management options for symptomatic fibroids?range from observation (watchful waiting) to medical treatments to surgical or interventional procedures. Your packing machine pilot can router will discuss the most appropriate approach for your specific situation based on your symptoms, fibroid characteristics, and personal preferences. MEDICATIONS PRESCRIBED AT DISCHARGE None. You may use [id number] ibuprofen as described above for symptom management. ACTIVITY AND DIET You may resume your normal activities as tolerated. There are no specific dietary restrictions. Maintain adequate hydration and nutrition. FOLLOW-UP APPOINTMENTS * Gynecology: Schedule within 2-4 weeks * Primary Care: Schedule within 1-2 weeks If you have difficulty scheduling these appointments or have questions about your care, please call your primary care physician or the Emergency Department. Prescriptions: No Action multivitamin Tablet 1 tab PO DAILY (DME) True Metrix Glucose Test Strip Strip See Rx Instructions .Route Rx Instructions: twice a day (DME) blood-glucose meter [True Metrix Glucose Meter] [facility] See Rx Instructions .Route Rx Instructions: Test blood sugar twice a day (DME) lancets [Easy Touch Safety Lancets] 28 gauge misc See Rx Instructions .Route Rx Instructions: test blood sugar twice a day Referrals: [facility] [place] [facility] [Provider Group] Clinical Impression: Uterine fibroid Print Language: Thai
[2025-06-26 18:07] VITALS: BP 141/92; PULSE 93; RESP 18; TEMP 36.3; O2SAT 99; BMI 26.5
[2025-06-26 20:37] LABS: MANUAL DIFF FLAG NO
[2025-06-26 20:46] LABS: Hematocrit 38.8 % (37.0-47.0); Hemoglobin 12.7 g/dl (12.0-16.0); Imm Gran Abs Auto 0.02 X10*3/uL (0.00-0.03); Imm Gran Pct Auto 0.2 % (0.0-0.4); Lymphocytes Absolute Auto 2.4 X10*3/uL (1.2-4.9); Mean Corpuscular HGB Conc 32.7 g/dl (31.0-35.0); Mean Corpuscular Hemoglobin 28.9 pg (27.0-33.0); Mean Corpuscular Volume 88.2 fL (80.0-98.0); NRBC Abs Auto 0.000 X10*3/uL (0.0-0.012); NRBC Pct Auto 0.0 /100WBC (0.0-0.2); Platelet Count 275 X10*3/uL (160-400); Red Blood Count 4.40 X10*6/uL (4.20-5.50); White Blood Count 9.0 X10*3/uL (4.8-10.8)
[2025-06-26 20:53] LABS: Alanine Aminotransferase 110 U/L (0-31); Albumin Level 5.3 g/dL (3.5-5.0); Alkaline Phosphatase 83 U/L (39-117); Anion Gap 12 (12-20); Appearance Urine Clear; Aspartate Amino Transferase 53 U/L (5-31); Blood Urea Nitrogen 15 mg/dL (9-16); Calcium 10.2 mg/dL (8.4-10.2); Carbon Dioxide 29 mmol/L (22-29); Chloride 104 mmol/L (96-108); Creatinine Clr Calc Pharmacy 79.9; Estimated Glomerular Filt Rate > 60; Glucose Urine UA Negative (Negative); PH 6.0 (5.0-9.0); Potassium 3.4 mmol/L (3.3-5.1); Sodium 142 mmol/L (135-145); Specific Gravity - Urine 1.015 (1.005-1.025); Total Protein 8.2 g/dL (6.5-8.0); UMIC TRIGGER UACC YES
[2025-06-26 20:54] LABS: INTERNATIONAL NORM RATIO 1.1 (0.9-1.1); Prothrombin Time 13.4 SEC (11.2-13.5)
[2025-06-26 21:35] VITALS: BP 148/90; PULSE 82; RESP 16; TEMP 36.6; O2SAT 100
[2025-06-26 22:15] VITALS: BP 148/90; PULSE 82; RESP 16; TEMP 36.6; O2SAT 100
== END 2025-06-26 22:15 | disposition home or self-care (01) ==
PROVIDERS: Physician Assistant Medical; Emergency Provider Emergency Medicine; PCP Internal Medicine
DX: N93.9 Abnormal uterine and vaginal bleeding, unspecified (principal); D25.1 Intramural leiomyoma of uterus; R11.2 Nausea with vomiting, unspecified; R74.01 Elevation of levels of liver transaminase levels; Z79.899 Other long term (current) drug therapy; Z87.891 Personal history of nicotine dependence
CPT/HCPCS: 36415; 76830; 76856; 80053; 81001; 85025; 85610; 99284

== ENCOUNTER → 2025-06-26 18:08 | Outpatient (BNV) | payer BC, SELFPAY | PROVIDERS: PCP Internal Medicine; Visit Provider Student in an Organized Health Care Education/Training Program | DX: D25.1 Intramural leiomyoma of uterus (principal); N93.9 Abnormal uterine and vaginal bleeding, unspecified | CPT/HCPCS: 76830; 76856 ==

== ENCOUNTER 2025-07-13 10:09 | Outpatient (AMB) | payer BC, SELFPAY ==
--- NOTE | 2025-07-13 10:20 | MHC.OFFVIS ---
Vital Signs 07/13/25 10:22 Height 5 ft 6 in Weight 164 lb BMI 26.5 BP 118/66 Intake Visit Reasons: ER Follow up-Vaginal Bleeding Punch Press Operator Required: No Information Interpreted: non-clinical & clinical Hot Room Attendant: Hot Room Attendant Present (Willow TORREZ) Accompanied by: Spouse Allergies fexofenadine (From Muriel-D 12 Hour) Allergy (Intermediate, Verified 07/13/25 10:26) Worsen cold symtoms fluticasone (From Flonase) Allergy (Intermediate, Verified 07/13/25 10:26) More congested pseudoephedrine (From Muriel-D 12 Hour) Allergy (Intermediate, Verified 07/13/25 10:26) Worsen cold symtoms metformin Adverse Reaction (Intermediate, Verified 07/13/25 10:26) lower blood sugar SEDATIVE MED Adverse Reaction (Intermediate, Uncoded 07/13/25 10:26) BURNING SENSATION Post menopausal: Yes HPI Comments Details: Presenting for ER visit follow-up . The patient went to the ER with vaginal bleeding it has been continuous over the last 3 weeks 06/26/2025 ER visit workup include the following H &H 12.7/38.8 Pelvic ultrasound showed the following: Transabdominal scanning performed for overall anatomy. Transvaginal scanning performed for additional detail. Anteverted uterus is 7.2 cm length. Intramural fibroids, Largestmeasuring up to 3.6 cm. No endometrial lesion, 3 mm thickness. Ovaries not visualized. No free fluid. IMPRESSION: 1. Endometrium appears unremarkable. 2. Uterine fibroids measuring up to 3.6 cm. Last Co [facility] 09[facility]12 [facility] Medical History History of mammogram (~11/2023) Pure hypercholesterolemia, unspecified Hyperlipidemia LDL goal <100 Submandibular lymphadenopathy Diabetes mellitus History of depression Asthma Surgical History History of appendectomy History of colonoscopy (~09/18/24) H/O lymph node excision (10/08/24) H/O elbow surgery H/O Spinal surgery Family History Father Dementia Diabetes FH: HTN (hypertension) Other Mental health disorder Social History Household Members: Spouse Housing: House Are you a primary memory care director to a significant other at home: No Do you presently have visiting nurse or other home services: No Alcohol intake: never Patient Tobacco Use Status: Former Tobacco user e-Cigarette/Vaping Use: Never Used Second Hand Smoke Exposure: Yes service: No Current occupational status: employed 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 [employer] Sexual orientation: Straight/Heterosexual Gender identity: Female Cognitive needs: No Hearing needs: No Vision needs: Yes (Glasses) Female Reproductive History Menstrual Age of Menarche: 13 Review of Systems Const All systems reviewed & are unremarkable except as noted in HPI and below Physical Exam Vital Signs: Last Vital Signs BP 118/66 07/13/25 10:22 BMI result Body Mass Index 26.5 General: Yes no CVA tenderness External Female Exam: normal external appearance and normal appearance of the urethra Speculum Exam - Vagina: normal appearance of the vagina, normal palpation, no lesions and no masses Speculum Exam - Cervix: normal appearance of the cervix, normal palpation, no lesions, no masses and nontender Bimanual exam- vagina & uterus: normal bimanual exam, normal palpation, uterine size normal, normal palpation, uterine shape normal, No Cervical tenderness present and non-tender Bimanual Exam- Adnexa, other: normal adnexae Back/Spine/Pelvis Back: no CVA tenderness Office Procedures Endometrial Biopsy Details: The patient was counseled regarding the indication and benefits of endometrial sampling to rule out endometrial pathology including not limited to endometrial hyperplasia or endometrial cancer and others; The alternatives (Either do nothing vs. hysteroscopy D&C) & the risks were discussed with the patient including but not limited: pain, uterine perforation, bleeding, infection, possible injury to bladder, bowel, ureter, possible need for blood transfusion with all its possible risks. The patient verbalized understanding all questions answered and signed consent. The patient was placed into the dorsal lithotomy position; a speculum was inserted in the vagina. Using aseptic technique for the procedure, the cervix was cleansed with Betadine. The anterior lip of the cervix was grasped with a single tooth tenaculum. The uterus was sounded to 7 cm with a 4 mm Pipelle was used. Tissues samples were obtained and placed in formalin, in a patient labeled container and sent to the pathology department. At the end of the procedure, there was minimal bleeding noted The patient tolerated the procedure well and was discharged in good condition with the following instructions: Nothing in the vagina until the bleeding stops. No sex until the bleeding stops, to call if any of the following occurs: fever (>100.4), flu-like symptoms, abdominal pain, heavy bleeding, four smelling vaginal discharge. The patient was instructed to schedule a Follow up appointment in 2 weeks to discuss pathology results of the biopsy and treatment options. This note was generated with a voice recognition program. Some errors may have been overlooked during the review of this note. Sometimes these errors may affect the content or meaning of a given sentence. 10521-[id number] Biopsy Assessment & Plan Assessment & Plan (1) Postmenopausal bleeding: Code(s): N95.0 - Postmenopausal bleeding Category: Medical Plan: Discussed with the patient the differential diagnosis of post menopausal bleeding with normal pelvic exam including but not limited to, endometrial hyperplasia, cancer, polyps and other causes; co testing done. Discussed with the patient the pelvic ultrasound findings, the endometrial stripe thickenss measured by ultrasound less than 4mm. The negative predictive value, positive predictive value, Sensitivity, specificity of using ultrasound measurement of endometrial stripe to detecting endometrial pathology including hyperplasia , polyp or cancer were discussed with the patient. Although endometrial thickness is less than 4 mm, Recommended to the patient that the next step is an endometrial sampling via hysteroscopy D&C possible polypectomy versus endometrial biopsy to r/o endometrial pathology including hyperplasia or cancer. All the pros and cons risks and benefits of each approach were discussed with the patient, endometrial biopsy being less invasive, office procedure with less sensitivity and inability diagnose a polyp and removal versus hysteroscopy done under anesthesia more invasive more sensitive to endometrial cancer and possibility of diagnosing and endometrial polyp with the possibility of polypectomy. All questions were answered pt verbalized understanding and decided to proceed with endometrial biopsy. EMB done, see procedure note This note was generated with a voice recognition program. Some errors may have been overlooked during the review of this note. Sometimes these errors may affect the content or meaning of a given sentence. Orders: Orders AMB Endometrial Biopsy Today N95.0 - Postmenopausal bleeding Coding Level of Care Code New Pt Level 3 (47007) Procedure Only Diagnoses Postmenopausal bleeding N95.0 CPT Codes Endometrial Biopsy - CPT: 24765-Ztxopectruz Biopsy ([id number])
[2025-07-13 10:22] VITALS: BP 118/66; BMI 26.5
--- OUTSIDE RECORDS SUMMARY | 2025-07-13 12:16 | XMS_ITS | Patient Health Record ---
Author Organization Jett Riddle III, MD Address [address] [place] [address] LINDA [address] [facility] [place] [address] Care Team Providers Care Swim Coach Name Role Phone Rui Lemos MD Primary Care Provider UnavailDr. Jett Arceo III Unavailable [phone] Allergies Allergen (clinical drug ingredient) Drug/Non Drug [...] Problem Status W/U Status Risk Notes Problem 6401787 Former smoker (Z87.891) Active confirmed She has a plan to prevent relapse and times of stress and illness. Problem 018377418 Overweight (E66.3) Active confirmed Her body mass i ndex is 27. We discussed her diet and nutrition. We made a plan to lose weight at a rate of one half damien a pound per week. Problem 61446344 Adenopathy (R59.9) Active confirmed The lymph node will be observed at short intervals. Comprehensive bloood work was ordered. If there is progression in the lymph node. It will be excised and study further. Problem 625210312 Cervical adenopathy (R59.0) Active confirmed The lymph node in the upper left neck is Unchanged It is mobile and nontender. She will be observed. The differential diagnosis remains a chronic lymphoproliferative process versus reactive lymph node. Problem 907784016 History of spinal stenosis (Z87.39) Active confirmed [...] Insured Coverage Start Date Coverage End Date [facility] [address] [place], [place] [id number] COLEEN COLLADO Self - patient is the insured Medical (General) History Medical History History ICD Code Cervical adenopathy Overweight Childhood meningitis Extraction maxillary molar Negative test for tuberculosis Tobacco dependence Spinal stenosis Surgical History Surgery Date(Month/Year) Laminectomy lumbar spine for spinal sten osis 2005 Surgical procedure right elbow 2017
== END 2025-07-13 10:54 | disposition home or self-care (01) ==
LOC: HO.HWS 10:10
PROVIDERS: PCP Internal Medicine; Visit Provider Obstetrics & Gynecology
DX: N95.0 Postmenopausal bleeding (principal)
CPT/HCPCS: 58100; 99203; 99459

== ENCOUNTER 2025-07-13 10:09 | Outpatient (REF) | payer BC, SELFPAY | END 2025-07-13 10:10 | disposition home or self-care (01) | LOC: HO.LNP 10:09 | PROVIDERS: PCP Internal Medicine; Visit Provider Obstetrics & Gynecology | DX: N95.0 Postmenopausal bleeding (principal) | CPT/HCPCS: 58100; 87626; 88175; 88305 ==

== ENCOUNTER 2025-07-20 14:58 | Outpatient (AMB) | payer BC, SELFPAY ==
--- NOTE | 2025-07-20 15:08 | MHC.OFFVIS ---
Vital Signs 07/20/25 15:09 Height 5 ft 6 in Weight 164 lb BMI 26.5 BP 128/66 Intake Visit Reasons: Repeat EMB ? pre op Enrollment Counselor Required: No Information Interpreted: non-clinical & clinical Accompanied by: Spouse Allergies fexofenadine (From Muriel-D 12 Hour) Allergy (Intermediate, Verified 07/20/25 15:14) Worsen cold symtoms fluticasone (From Flonase) Allergy (Intermediate, Verified 07/20/25 15:14) More congested pseudoephedrine (From Muriel-D 12 Hour) Allergy (Intermediate, Verified 07/20/25 15:14) Worsen cold symtoms metformin Adverse Reaction (Intermediate, Verified 07/20/25 15:14) lower blood sugar SEDATIVE MED Adverse Reaction (Intermediate, Uncoded 07/20/25 15:14) BURNING SENSATION Post menopausal: Yes HPI Comments Details: The patient is presenting after endometrial biopsy. The patient has no complaints, no vaginal bleeding, no feverishness chills or abdominal pain. The endometrial biopsy pathology report showed the following: Endometrium, biopsy: Scant superficial strips of endometrium, endocervical and rare squamous epithelium; abundant blood; no atypia identified. Comment: If patient's symptoms persist, consider repeat sampling due to the relative low cellularity (as clinically appropriate). [facility] Medical History History of mammogram (~11/2023) Pure hypercholesterolemia, unspecified Hyperlipidemia LDL goal <100 Submandibular lymphadenopathy Diabetes mellitus History of depression Asthma Surgical History History of appendectomy History of colonoscopy (~09/18/24) H/O lymph node excision (10/08/24) H/O elbow surgery H/O Spinal surgery Family History Father Dementia Diabetes FH: HTN (hypertension) Other Mental health disorder Social History Household Members: Spouse Housing: House Are you a primary social worker palliative care to a significant other at home: No Do you presently have visiting nurse or other home services: No Alcohol intake: never Patient Tobacco Use Status: Former Tobacco user e-Cigarette/Vaping Use: Never Used Second Hand Smoke Exposure: Yes service: No Current occupational status: employed 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 occupation: [employer] at [employer] Sexual orientation: Straight/Heterosexual Gender identity: Female Cognitive needs: No Hearing needs: No Vision needs: Yes (Glasses) Female Reproductive History Menstrual Age of Menarche: 13 Physical Exam Vital Signs: Last Vital Signs BP 128/66 07/20/25 15:09 BMI result Body Mass Index 26.5 Office Procedures Endometrial Biopsy Details: The patient was counseled regarding the indication and benefits of endometrial sampling to rule out endometrial pathology including not limited to endometrial hyperplasia or endometrial cancer and others; The alternatives (Either do nothing vs. hysteroscopy D&C) & the risks were discussed with the patient including but not limited: pain, uterine perforation, bleeding, infection, possible injury to bladder, bowel, ureter, possible need for blood transfusion with all its possible risks. The patient verbalized understanding all questions answered and signed consent. The patient was placed into the dorsal lithotomy position; a speculum was inserted in the vagina. Using aseptic technique for the procedure, the cervix was cleansed with Betadine. The anterior lip of the cervix was grasped with a single tooth tenaculum. The uterus was sounded to 7 cm with a 4 mm Pipelle was used. Tissues samples were obtained and placed in formalin, in a patient labeled container and sent to the pathology department. At the end of the procedure, there was minimal bleeding noted The patient tolerated the procedure well and was discharged in good condition with the following instructions: Nothing in the vagina until the bleeding stops. No sex until the bleeding stops, to call if any of the following occurs: fever (>100.4), flu-like symptoms, abdominal pain, heavy bleeding, four smelling vaginal discharge. The patient was instructed to schedule a Follow up appointment in 2 weeks to discuss pathology results of the biopsy and treatment options. This note was generated with a voice recognition program. Some errors may have been overlooked during the review of this note. Sometimes these errors may affect the content or meaning of a given sentence. 62049-Zlihlfkxdtv Biopsy Assessment & Plan Assessment & Plan (1) Postmenopausal bleeding: Code(s): N95.0 - Postmenopausal bleeding Category: Medical Plan: Discussed with the patient the results of the EMB pathology with scant tissue. Recommended to the patient that the next step is an endometrial sampling via hysteroscopy D&C possible polypectomy versus endometrial biopsy to r/o endometrial pathology including hyperplasia or cancer. All the pros and cons risks and benefits of each approach were discussed with the patient, endometrial biopsy being less invasive, office procedure with less sensitivity and inability diagnose a polyp and removal versus hysteroscopy done under anesthesia more invasive more sensitive to endometrial cancer and possibility of diagnosing and endometrial polyp with the possibility of polypectomy. All questions were answered pt verbalized understanding and decided to proceed with endometrial biopsy. EMB done, see procedure note Orders: Orders AMB Endometrial Biopsy Today N95.0 - Postmenopausal bleeding Coding Level of Care Code Est Pt Level 3 (23104) Procedure Only Diagnoses Postmenopausal bleeding N95.0 CPT Codes Endometrial Biopsy - CPT: 12098-Ehajmlvizmq Biopsy ([id number])
[2025-07-20 15:09] VITALS: BP 128/66; BMI 26.5
--- OUTSIDE RECORDS SUMMARY | 2025-07-20 17:19 | XMS_ITS | Patient Health Record ---
Author Organization Jett Riddle III, MD Address [address] [place] [address] [place] [address] Care Team Providers Care Protein Specialist Name Role Phone Rui Lemos MD [...] Problem Status W/U Status Risk Notes Problem 9608742 Former smoker (Z87.891) Active confirmed She has a plan to prevent relapse and times of stress and illness. Problem 355409927 Overweight (E66.3) Active confirmed Her body mass i ndex is 27. We discussed her diet and nutrition. We made a plan to lose weight at a rate of one half damien a pound per week. Problem 75313586 Adenopathy (R59.9) Active confirmed The lymph node will be observed at short intervals. Comprehensive bloood work was ordered. If there is progression in the lymph node. It will be excised and study further. Problem 155014881 Cervical adenopathy (R59.0) Active confirmed The lymph node in the upper left neck is Unchanged It is mobile and nontender. She will be observed. The differential diagnosis remains a chronic lymphoproliferative process versus reactive lymph node. Problem 854005704 History of spinal stenosis (Z87.39) Active confirmed [...] Insured Coverage Start Date Coverage End Date [facility] [address] [place], [place] [id number] COLEEN COLLADO Self - patient is the insured Medical (General) History Medical History History ICD Code Cervical adenopathy Overweight Childhood meningitis Extraction maxillary molar Negative test for tuberculosis Tobacco dependence Spinal stenosis Surgical History Surgery Date(Month/Year) Laminectomy lumbar spine for spinal sten osis 2005 Surgical procedure right elbow 2017
== END 2025-07-20 16:08 | disposition home or self-care (01) ==
PROVIDERS: PCP Internal Medicine; Visit Provider Obstetrics & Gynecology
DX: N95.0 Postmenopausal bleeding (principal)
CPT/HCPCS: 58100; 99213

== ENCOUNTER 2025-07-20 14:58 | Outpatient (REF) | payer BC, SELFPAY | END 2025-07-20 14:59 | disposition home or self-care (01) | LOC: HO.LNP 14:58 | PROVIDERS: PCP Internal Medicine; Visit Provider Obstetrics & Gynecology | DX: N95.0 Postmenopausal bleeding (principal); Z01.84 Encounter for antibody response examination | CPT/HCPCS: 58100; 88305; 88341; 88342; 88360 ==